=== PATIENT | male | born 1960 | race Caucasian/White ===

== ENCOUNTER 2020-12-14 10:25 | Inpatient (IN) | payer OTHER, SELFPAY ==
[2020-12-14 12:52] LABS: Urine Blood Negative (Negative); Urine Glucose Negative (Negative); Urine Protein Negative (Negative); Urine pH 5.5 (5.0-7.0)
[2020-12-14 14:48] LABS: Protime INR 0.99
[2020-12-14 14:49] LABS: Absolute Lymphocytes (CBC) 1.8 K/uL (0.7-4.9); Basophils % 0.9 % (0-1.3); Lymphocytes % 36.1 % (15.3-44.8); MPV 8.5 fL (7.6-11.3); RBC Red Blood Cell Count 4.86 M/uL (4.33-5.43)
[2020-12-14 14:55] LABS: ALT/SGPT 48 U/L (12-78); AST/SGOT 26 U/L (15-37); Albumin 4.1 g/dL (3.4-5.0); Alkaline Phosphatase 68 U/L (45-117); BUN Blood Urea Nitrogen 12 mg/dL (7-18); Bicarbonate 30 mmol/L (21-32); Bilirubin Direct 0.2 mg/dL (0-0.2); Bilirubin Total 0.8 mg/dL (0.2-1.0); Glucose Level 91 mg/dL (74-106); NT PRO-BNP 22 pg/mL (<125); Potassium 3.9 mmol/L (3.5-5.1); Protein, Total 7.6 g/dL (6.4-8.2); Sodium Level 142 mmol/L (136-145); Troponin (Emerg Dept Use Only) 0.02 ng/mL (0.0-0.045)
--- NOTE | 2020-12-14 15:20 | RAD REPORT ---
EXAM DESCRIPTION: RAD - Chest Single View - 12/14/2020 1:58 pm CLINICAL HISTORY: CHEST PAIN Chest pain. COMPARISON: No comparisons FINDINGS: Portable technique limits examination quality. The lungs are grossly clear. The heart is normal in size. No displaced fractures. IMPRESSION: No acute intrathoracic process suspected.
--- NOTE | 2020-12-14 16:19 | EDPHYS ---
Physician Documentation [facility] Name: Vargas Oquendo Age: 60 yrs Sex: Male : 1960 Arrival Date: 12/14/2020 Time: 10:29 Bed 17 Private MD: ED Physician Franky Jensen HPI: 12/14 13:28 This 60 yrs old Male presents to ER via Ambulatory with complaints of Chest jmm Pain. 13:28 The patient or guardian reports chest pain that is located primarily in the substernal m area. Onset: gradually, at an unknown time. The pain does not radiate. The chest pain is described as a pressure. Duration: The patient or guardian reports multiple episodes, that wax and wane. The patient has experienced similar episodes in the past. Patient states he has been dealing with a similar pain for the past few months. Patient has had outpatient evaluation by Dr. Perera with normal stress tests. . 13:31 Patient states symptoms intensified this morning around 9 am after exercising. Pain has jmm currently resolved. . Historical: - Allergies: 10:51 No Known Allergies; aa5 - Home Meds: 10:51 levothyroxine 75 mcg tab [Active]; lisinopril 10 mg Oral tab 1 tab once daily [Active]; aa5 verapamil 180 mg Oral C24P 1 cap once daily [Active]; glipizide 10 mg Oral tab 1 tab once daily [Active]; atorvastatin 40 mg oral tab 1 tab once daily [Active]; - PMHx: 10:51 Diabetes - NIDDM; Hypertension; Hypothyroidism; High Cholesterol; aa5 - Immunization history:: Adult Immunizations not up to date. - Social history:: Smoking status: Patient denies any tobacco usage or history of. ROS: 13:28 Constitutional: Negative for fever, chills, and weight loss. jmm 13:28 Respiratory: Negative for shortness of breath, cough, wheezing, and pleuritic chest pain. 13:28 Cardiovascular: Positive for chest pain. 13:28 All other systems are negative. Exam: 13:28 Constitutional: This is a well developed, well nourished patient who is awake, alert, jmm and in no acute distress. Head/Face: atraumatic. Eyes: EOMI, no conjunctival erythema appreciated ENT: Moist Mucus Membranes Neck: Trachea midline, Supple Chest/axilla: Normal chest wall appearance and motion. Cardiovascular: Regular rate and rhythm. No edema appreciated Respiratory: Normal respirations, no respiratory distress appreciated Abdomen/GI: Non distended, soft Back: Normal ROM Skin: General appearance color normal 13:28 Musculoskeletal/extremity: ROM: intact in all extremities. 13:28 Skin: Appearance: Color: normal in color. 13:28 Neuro: Orientation: is normal, Mentation: is normal, Memory: is normal. 13:28 Psych: Behavior/mood is pleasant, cooperative. Vital Signs: 10:44 BP 165 / 95; Pulse 82; Resp 17 S; Temp 97.2(O); Pulse Ox 99% on R/A; Weight 98.43 kg aa5 (R); Height 6 ft. 1 in. (185.42 cm); Pain 0/10; 13:10 BP 102 / 70; Pulse 69; Resp 20; Pulse Ox 98% on R/A; ca1 14:05 BP 105 / 69; Pulse 69; Resp 17 S; Pulse Ox 99% on R/A; ca1 15:13 BP 113 / 76; Pulse 63; Resp 17 S; Pulse Ox 97% on R/A; ca1 16:11 BP 107 / 69; Pulse 64; Resp 16 S; Pulse Ox 100% on R/A; ca1 17:11 BP 153 / 85; Pulse 68; Resp 16 S; Pulse Ox 100% on R/A; ca1 18:00 BP 140 / 94; Pulse 67; Resp 16 S; Pulse Ox 99% on R/A; ca1 18:55 BP 125 / 86; Pulse 70; Resp 16 S; Pulse Ox 99% on R/A; ca1 19:55 BP 114 / 63; Pulse 73; Resp 16 S; Pulse Ox 97% on R/A; ca1 20:42 BP 121 / 71; Pulse 72; Resp 16 S; Pulse Ox 99% on R/A; ca1 10:44 Body Mass Index 28.63 (98.43 kg, 185.42 cm) aa5 MDM: 13:27 Patient medically screened. jmm 16:17 The patient was not given aspirin in the Emergency Department. Patient reports taking [facility] aspirin within the past 24 hours. Data reviewed: vital signs, nurses notes, lab test result(s), EKG, radiologic studies, plain films. Counseling: I had a detailed discussion with the patient and/or guardian regarding: the historical points, exam findings, and any diagnostic results supporting the discharge/admit diagnosis, lab results, radiology results, the need for outpatient follow up, the need for further work-up and treatment in the hospital. Refusal of service: The patient/guardian displays adequate decision making capability and despite a detailed discussion of alternatives, benefits, risks, and consequences refuses: Admission to the hospital for further work-up and treatment. 17:08 ED course: I discussed the patient with Dr. Martinez whom accepted the patient for [facility] admission. . 12/14 12:52 Order name: Urine Dipstick-Ancillary; Complete Time: 13:49 [facility] 12/14 13:27 Order name: Basic Metabolic Panel; Complete Time: 14:56 [facility] 12/14 13:27 Order name: CBC with Diff; Complete Time: 15:10 [facility] 12/14 13:27 Order name: LFT's; Complete Time: 14:56 [facility] 12/14 13:27 Order name: Magnesium; Complete Time: 14:56 [facility] 12/14 13:27 Order name: NT PRO-BNP; Complete Time: 14:56 [facility] 12/14 12:46 Order name: CXR XRAY; Complete Time: 15:33 12/14 13:27 Order name: PT-INR; Complete Time: 15:10 [facility] 12/14 13:27 Order name: Troponin (emerg Dept Use Only); Complete Time: 14:56 [facility] 12/14 13:27 Order name: EKG; Complete Time: 13:28 [facility] 12/14 13:27 Order name: Cardiac monitoring; Complete Time: 13:59 [facility] 12/14 18:45 Order name: COVID-19 : Document "Date of Symptom Onset" if Symptomatic. [facility] 12/14 19:25 Order name: CORONAVIRUS [facility] 12/14 20:36 Order name: SARS-COV-2 RT PCR; Complete Time: 20:59 [facility] 12/14 13:27 Order name: EKG - Nurse/Tech; Complete Time: 13:59 [facility] 12/14 13:27 Order name: IV Saline Lock; Complete Time: 13:59 [facility] 12/14 13:27 Order name: Labs collected and sent; Complete Time: 13:59 [facility] 12/14 13:27 Order name: O2 Per Protocol; Complete Time: 13:59 [facility] 12/14 13:27 Order name: O2 Sat Monitoring; Complete Time: 13:59 [facility] Administered Medications: No medications were administered Disposition: 12/14/20 17:09 Hospitalization ordered by Loree Martinez for Observation. Preliminary diagnosis is Chest pain, unspecified. - Bed requested for Telemetry/MedSurg (observation). - Status is Observation. ca1 - Condition is Stable. - Problem is an acute exacerbation. - Symptoms are unchanged. Addendum: 12/16/2020 07:18 Co-signature as Attending Physician, Franky Jensen MD I agree with the assessment and k dr plan of care. Signatures: Dispatcher [employer] EDMS Franky Jensen MD MD kdr Mickail, Joel, PA PA [facility] Na Joshua, RN RN aa5 Mame Holden RN RN tl1 Marian Oconnell RN RN ca1 Corrections: (The following items were deleted from the chart) 12/14 17:06 16:18 12/14/2020 16:18 Discharged to Home. Impression: Chest pain, unspecified. [facility] Condition is Stable. Forms are Medication Reconciliation Form, Thank You Letter, Antibiotic Education, Prescription Opioid Use. Follow up: Private Physician; When: 2 - 3 days; Reason: Recheck today's complaints, Continuance of care, Re-evaluation by your physician. [facility] 20:39 17:09 Hospitalization Ordered by Loree Martinez MD for Observation. Preliminary tl1 diagnosis is Chest pain, unspecified. Bed requested for Telemetry/MedSurg (observation). Status is Observation. Condition is Stable. Problem is an acute exacerbation. Symptoms are unchanged. [facility] 21:33 20:39 12/14/2020 17:09 Hospitalization Ordered by Loree Martinez MD for Observation. ca1 Preliminary diagnosis is Chest pain, unspecified. Bed requested for Telemetry/MedSurg (observation). Status is Observation. Condition is Stable. Problem is an acute exacerbation. Symptoms are unchanged. tl1
--- NOTE | 2020-12-14 16:19 | ER ---
Nurse's Notes [facility] Name: Vargas Oquendo Age: 60 yrs Sex: Male : 1960 Arrival Date: 12/14/2020 Time: 10:29 Bed 17 Private MD: Diagnosis: Chest pain, unspecified Presentation: 12/14 10:44 Chief complaint: Patient states: Chest pressure and shortness of breath with exertion x aa5 a couple months and happened this morning while walking an hour ago, denies discomfort right now. Coronavirus screen: Client denies travel out of the [place] in the last 14 days. At this time, the client does not indicate any symptoms associated with coronavirus-19. Ebola Screen: No symptoms or risks identified at this time. Initial Sepsis Screen: Does the patient meet any 2 criteria? No. Patient's initial sepsis screen is negative. Does the patient have a suspected source of infection? No. Patient's initial sepsis screen is negative. Risk Assessment: Do you want to hurt yourself or someone else? Patient reports no desire to harm self or others. Onset of symptoms was October 09, 2020. Care prior to arrival: None. 10:44 Method Of Arrival: Ambulatory aa5 10:44 Acuity: FESTUS 2 aa5 Triage Assessment: 10:51 General: Appears in no apparent distress. uncomfortable, Behavior is calm, cooperative, aa5 appropriate for age. Pain: Denies pain. Neuro: Level of Consciousness is awake, alert, obeys commands, Oriented to person, place, time, situation. Cardiovascular: Denies chest pain, Patient's skin is warm and dry. Respiratory: Airway is patent Respiratory effort is even, unlabored, Respiratory pattern is regular, symmetrical. Derm: Skin is pink, warm \\T\\ dry. Historical: - Allergies: 10:51 No Known Allergies; aa5 - Home Meds: 10:51 levothyroxine 75 mcg tab [Active]; lisinopril 10 mg Oral tab 1 tab once daily [Active]; aa5 verapamil 180 mg Oral C24P 1 cap once daily [Active]; glipizide 10 mg Oral tab 1 tab once daily [Active]; atorvastatin 40 mg oral tab 1 tab once daily [Active]; - PMHx: 10:51 Diabetes - NIDDM; Hypertension; Hypothyroidism; High Cholesterol; aa5 - Immunization history:: Adult Immunizations not up to date. - Social history:: Smoking status: Patient denies any tobacco usage or history of. Screenin:10 Abuse screen: Denies threats or abuse. Denies injuries from another. Nutritional ca1 screening: No deficits noted. Tuberculosis screening: No symptoms or risk factors identified. Fall Risk IV access (20 points). Total [facility] Fall Scale indicates No Risk (0-24 pts). Assessment: 13:10 General: Appears in no apparent distress. comfortable, Behavior is calm, cooperative, ca1 appropriate for age. Pain: Complains of pain in anterior aspect of left upper chest and left breast Pain does not radiate. Pain currently is 0 out of 10 on a pain scale. at worst was 5 out of 10 on a pain scale. Quality of pain is described as pressure, Pain began at 0800 today Is intermittent. Pain: Also complains of shortness of breath. Neuro: Level of Consciousness is awake, alert, obeys commands, Oriented to person, place, time, situation. Cardiovascular: Heart tones S1 S2 absent Capillary refill < 3 seconds Patient's skin is warm and dry. Rhythm is sinus rhythm. Respiratory: Airway is patent Respiratory effort is even, unlabored, Respiratory pattern is regular, symmetrical, Breath sounds are clear bilaterally. GI: Abdomen is flat, non-distended, Bowel sounds present X 4 quads. Abd is soft and non tender X 4 quads. : No signs and/or symptoms were reported regarding the genitourinary system. EENT: No signs and/or symptoms were reported regarding the EENT system. Derm: Skin is intact, is healthy with good turgor, Skin is pink, warm \\T\\ dry. Musculoskeletal: Circulation, motion, and sensation intact. Capillary refill < 3 seconds. 14:05 Reassessment: Patient appears in no apparent distress at this time. Patient and/or ca1 family updated on plan of care and expected duration. Pain level reassessed. Patient is alert, oriented x 3, equal unlabored respirations, skin warm/dry/pink. 15:11 Reassessment: Patient appears in no apparent distress at this time. Patient and/or ca1 family updated on plan of care and expected duration. Pain level reassessed. Patient is alert, oriented x 3, equal unlabored respirations, skin warm/dry/pink. 16:11 Reassessment: Patient appears in no apparent distress at this time. Patient and/or ca1 family updated on plan of care and expected duration. Pain level reassessed. Patient is alert, oriented x 3, equal unlabored respirations, skin warm/dry/pink. 16:55 Reassessment: Pt wants to talk to provider again. Pending discharge. ca1 17:56 Reassessment: Patient appears in no apparent distress at this time. Patient and/or ca1 family updated on plan of care and expected duration. Pain level reassessed. Patient is alert, oriented x 3, equal unlabored respirations, skin warm/dry/pink. Pending room assignment. 18:55 Reassessment: Patient appears in no apparent distress at this time. Patient and/or ca1 family updated on plan of care and expected duration. Pain level reassessed. Patient is alert, oriented x 3, equal unlabored respirations, skin warm/dry/pink. 19:55 Reassessment: Patient appears in no apparent distress at this time. Patient and/or ca1 family updated on plan of care and expected duration. Pain level reassessed. Patient is alert, oriented x 3, equal unlabored respirations, skin warm/dry/pink. 20:40 Reassessment: called for report, nurse will call back. ca1 20:42 Reassessment: Patient appears in no apparent distress at this time. Patient and/or ca1 family updated on plan of care and expected duration. Pain level reassessed. Patient is alert, oriented x 3, equal unlabored respirations, skin warm/dry/pink. Vital Signs: 10:44 BP 165 / 95; Pulse 82; Resp 17 S; Temp 97.2(O); Pulse Ox 99% on R/A; Weight 98.43 kg aa5 (R); Height 6 ft. 1 in. (185.42 cm); Pain 0/10; 13:10 BP 102 / 70; Pulse 69; Resp 20; Pulse Ox 98% on R/A; ca1 14:05 BP 105 / 69; Pulse 69; Resp 17 S; Pulse Ox 99% on R/A; ca1 15:13 BP 113 / 76; Pulse 63; Resp 17 S; Pulse Ox 97% on R/A; ca1 16:11 BP 107 / 69; Pulse 64; Resp 16 S; Pulse Ox 100% on R/A; ca1 17:11 BP 153 / 85; Pulse 68; Resp 16 S; Pulse Ox 100% on R/A; ca1 18:00 BP 140 / 94; Pulse 67; Resp 16 S; Pulse Ox 99% on R/A; ca1 18:55 BP 125 / 86; Pulse 70; Resp 16 S; Pulse Ox 99% on R/A; ca1 19:55 BP 114 / 63; Pulse 73; Resp 16 S; Pulse Ox 97% on R/A; ca1 20:42 BP 121 / 71; Pulse 72; Resp 16 S; Pulse Ox 99% on R/A; ca1 10:44 Body Mass Index 28.63 (98.43 kg, 185.42 cm) aa5 ED Course: 10:29 Patient arrived in ED. am2 10:47 Triage completed. aa5 10:50 EKG completed in triage. Results shown to MD. jl7 10:51 Arm band placed on right wrist. aa5 13:09 Abdias Smith PA is PHCP. [facility] 13:09 Franky Jensen MD is Attending Physician. [facility] 13:10 Patient has correct armband on for positive identification. Placed in gown. Bed in low ca1 position. Call light in reach. Side rails up X2. lunchroom monitor on. Pulse ox on. NIBP on. Warm blanket given. 13:15 Marian Oconnell, EDUARDO is Primary Nurse. ca1 13:58 CXR XRAY In Process Unspecified. EDMS 13:58 No provider procedures requiring assistance completed. Initial lab(s) drawn, by co, ca1 sent to lab. Inserted saline lock: 20 gauge in right antecubital area, using aseptic technique. Blood collected. Patient maintains SpO2 saturation greater than 95% on room air. 17:09 Loree Martinez MD is Hospitalizing Provider. [facility] 19:23 COVID-19 : Document "Date of Symptom Onset" if Symptomatic. Sent. ca1 20:42 Patient admitted, IV remains in place. ca1 Administered Medications: No medications were administered Outcome: 16:18 Discharge ordered by . [facility] 17:09 Decision to Hospitalize by Provider. [facility] 20:42 Condition: stable ca1 20:42 Instructed on the need for admit. 21:07 Admitted to Med/surg accompanied by tech, via wheelchair, room 214, with chart, Report ca1 called to EDUARDO Epstein 21:33 Patient left the ED. ca1 Signatures: Dispatcher [employer] EDMS Abdias Smith PA PA jmm Calderon, Audri, RN RN aa5 John Ramirez RN RN jl7 Lissette Gandhi am2 Marian Oconnell RN RN ca1 Corrections: (The following items were deleted from the chart) 15:13 14:05 BP 113 / 76; Pulse 63bpm; Resp 17bpm; Spontaneous; Pulse Ox 97% RA; ca1 ca1 17:57 17:56 BP 153 / 85; Pulse 68bpm; Resp 16bpm; Spontaneous; Pulse Ox 100% RA; ca1 ca1
[2020-12-14] MEDS ORDERED: ACETAMINOPHEN 500 MG TAB PO PRN (21:27)
[2020-12-14] MEDS ORDERED: NITROGLYCERIN 0.4 MG/TAB SL PRN (21:27)
[2020-12-14] MEDS ORDERED: ONDANSETRON 4 MG/2 ML VIAL IV PRN (21:27)
[2020-12-14] MEDS: ATORVASTATIN 40 MG TAB PO SCH (21:27)
[2020-12-14] MEDS: INSULIN -REGULAR HUMAN 50 UNIT/0.5 ML ML SQ SCH (21:27)
[2020-12-14] MEDS ORDERED: MORPHINE 2 MG/ML SYR IV PRN (21:27)
[2020-12-14 23:21] VITALS: BMI 29.5
--- NOTE | 2020-12-15 00:28 | P.HP ---
Certification for Inpatient Patient admitted to: Observation With expected LOS: <2 Midnights Patient will require the following post-hospital care: None Practitioner: I am a practitioner with admitting privileges, knowledge of patient current condition, hospital course, and medical plan of care. Services: Services provided to patient in accordance with Admission requirements found in Title 42 Section 412.3 of the Code of Federal Regulations <Arik Jose - Last Filed: 12/15/20 00:23> Patient History Date of Service: 12/14/20 Primary Care Provider: Dr Alas Reason for admission: chest pain History of Present Illness: Mr. Oquendo is a 60 yo male with T2DM, HTN, HLD, and hypothyroidism here today for chest pain. For the past few months he has had chest pain while exercising. Today, after running a mile, he reports 6/10 sternal chest pressure so bad he had to call his neighbor for help. He says the chest pressure will also wake him up at night. He also reports SOB, diaphoresis, an 'icy burn' feeling, and difficulty balancing. Denies nausea, vomiting, vision changes. He dips snuff. He says 2 months ago he had an abnormal pharmacological stress test but had no followup after that. Initial trops negative. - Past Medical/Surgical History Has patient received pneumonia vaccine in the past: No Diabetic: Yes -: diabetes- NIDDM -: HTN -: high cholesterol -: hypothyroidism -: eye surgery - Social History Smoking Status: Never smoker (dips snuff) Alcohol use: No CD- Drugs: No Caffeine use: Yes Place of Residence: Home <Arik Jose - Last Filed: 12/15/20 00:23> Date of Service: 12/16/20 <tha vital - Last Filed: 12/16/20 18:34> Allergies No Known Allergies Allergy (Verified 12/14/20 23:22) Home Medications: Atorvastatin Calcium 40 mg PO DAILY 12/14/20 Glipizide [Glipizide ER] 10 mg PO DAILY 12/14/20 Levothyroxine [Synthroid] 75 mcg PO [id number] 12/14/20 Lisinopril [Zestril] 10 mg PO DAILY 12/14/20 Verapamil HCl [Verapamil Sr] 180 mg PO DAILY 12/14/20 Review of Systems General: Sweats, As per HPI Eyes: Unremarkable ENT: Unremarkable Respiratory: Shortness of Breath, As per HPI Cardiovascular: Chest Pain, As per HPI Gastrointestinal: Unremarkable Genitourinary: Unremarkable Musculoskeletal: Unremarkable Integumentary: Unremarkable Neurological: Unremarkable Lymphatics: Unremarkable <Arik Jose - Last Filed: 12/15/20 00:23> Physical Examination - Vital Signs Temperature: 97.0 F Blood Pressure: 131/72 Pulse: 68 Respirations: 18 Pulse Ox (%): 97 - Physical Exam General: Alert, In no apparent distress, Oriented x3, Cooperative HEENT: Atraumatic, Normocephalic, PERRLA, Mucous membr. moist/pink, EOMI, Sclerae nonicteric Neck: Supple, 2+ carotid pulse no bruit, JVD not distended, No Thyromegaly, No LAD Respiratory: Clear to auscultation bilaterally, Normal air movement Cardiovascular: No edema, Normal pulses, Regular rate/rhythm, Normal S1 S2, No gallops, No rubs, No murmurs Capillary refill: <2 Seconds Gastrointestinal: Normal bowel sounds, Soft and benign, Non-distended, No ascites, No tenderness, No masses, No rebound, No guarding Musculoskeletal: No clubbing, No swelling, No contractures, No erythema, No tenderness, No warmth Integumentary: No rashes, No breakdown, No significant lesion, No tenderness/swelling, No erythema, No warmth, No cyanosis Neurological: Normal gait, Normal speech, Normal strength at 5/5 x4 extr, Normal tone, Sensation intact, Cranial nerves 3-12 intact, Normal affect Lymphatics: No axilla or inguinal lymphadenopathy - Studies Laboratory Data (last 24 hrs) 12/14/20 13:57: PT 11.4, INR 0.99 12/14/20 13:57: WBC 4.80, Hgb 14.7, Hct 45.0, Plt Count 249 12/14/20 13:57: Sodium 142, Potassium 3.9, BUN 12, Creatinine 0.70, Glucose 91, Magnesium 2.0, Total Bilirubin 0.8, AST 26, ALT 48, Alkaline Phosphatase 68 <Arik Jose - Last Filed: 12/15/20 00:23> - Studies Laboratory Data (last 24 hrs) 12/16/20 06:39: APTT 54.9 H 12/16/20 06:39: Sodium 138, Potassium 4.3, BUN 11, Creatinine 0.79, Glucose 207 H 12/16/20 06:39: WBC 7.00 D, Hgb 13.9, Hct 42.0, Plt Count 238 <tha vital - Last Filed: 12/16/20 18:34> Assessment and Plan - Problems (Diagnosis) (1) Type 2 diabetes mellitus Current Visit: Yes Status: Chronic Qualifiers: Diabetes mellitus parts counterman insulin use: without parts counterman use Diabetes mellitus complication status: without complication Qualified Code(s): E11.9 - Type 2 diabetes mellitus without complications (2) Hypertension Current Visit: Yes Status: Chronic Qualifiers: Hypertension type: essential hypertension Qualified Code(s): I10 - Es sential (primary) hypertension (3) Hyperlipidemia Current Visit: Yes Status: Chronic Qualifiers: Hyperlipidemia type: unspecified Qualified Code(s): E78.5 - Hyperlipidemia, unspecified (4) Hypothyroidism Current Visit: Yes Status: Chronic Qualifiers: Hypothyroidism type: unspecified Qualified Code(s): E03.9 - Hypothyroidism, unspecified (5) Chest pain Current Visit: Yes Status: Acute Qualifiers: Chest pain type: unspecified Qualified Code(s): R07.9 - Chest pain, unspecified - Plan cardiology consulted trending troponins and EKG morphine and nitro PRN, daily aspirin and statin BP currently stable, will reconcile home BP medications TSH/T4, lipid panel, A1c pending sliding scale insulin and Accuchecks Discharge Plan: Home Plan to discharge in: 24 Hours - Advance Directives Does patient have a Living Will: No Does patient have a Durable POA for Healthcare: Yes - Code Status/Comfort Care Code Status Assessed: Yes (full code) Critical Care: No Time Spent Managing Pts Care (In Minutes): 70 <Arik Jose - Last Filed: 12/15/20 00:23> - Problems (Diagnosis) (1) Coronary artery disease Current Visit: Yes Status: Acute (2) Chest pain Current Visit: Yes Status: Acute Qualifiers: Chest pain type: unspecified Qualified Code(s): R07.9 - Chest pain, unspecified (3) Hyperlipidemia Current Visit: Yes Status: Chronic Qualifiers: Hyperlipidemia type: unspecified Qualified Code(s): E78.5 - Hyperlipidemia, unspecified (4) Hypertension Current Visit: Yes Status: Chronic Qualifiers: Hypertension type: essential hypertension Qualified Code(s): I10 - Essential (primary) hypertension (5) Type 2 diabetes mellitus Current Visit: Yes Status: Chronic Qualifiers: Diabetes mellitus [facility] insulin use: without parts counterman use Diabetes mellitus complication status: without complication Qualified Code(s): E11.9 - Type 2 diabetes mellitus without complications Physician Review: Patient Assessed, Agree with Above Assessment and Plan Physician Review Additional Text: Chest pain Abnormal stress test Plan: trend troponin. Cardiology consult ASA. <tha vital - Last Filed: 12/16/20 18:34>
[2020-12-15 05:39] LABS: Absolute Lymphocytes (CBC) 1.8 K/uL (0.7-4.9); Basophils % 0.9 % (0-1.3); Hematocrit 42.4 % (39.6-49.0); Lymphocytes % 31.6 % (15.3-44.8); MPV 8.2 fL (7.6-11.3); RBC Red Blood Cell Count 4.61 M/uL (4.33-5.43)
[2020-12-15 06:10] LABS: ALT/SGPT 41 U/L (12-78); AST/SGOT 21 U/L (15-37); Albumin 3.6 g/dL (3.4-5.0); Alkaline Phosphatase 58 U/L (45-117); BUN Blood Urea Nitrogen 12 mg/dL (7-18); Bicarbonate 30 mmol/L (21-32); Bilirubin Total 0.7 mg/dL (0.2-1.0); Glucose Level 136 mg/dL (74-106); HDL Cholesterol 49 mg/dL (40-60); LDL Cholesterol, Calculated 86 (<130); Magnesium 1.9 mg/dL (1.8-2.4); Phosphorus 4.1 mg/dL (2.5-4.9); Potassium 4.2 mmol/L (3.5-5.1); Protein, Total 6.8 g/dL (6.4-8.2); Sodium Level 141 mmol/L (136-145); Troponin I < 0.02 ng/mL (0.0-0.045)
[2020-12-15] MEDS: INSULIN -REGULAR HUMAN 50 UNIT/0.5 ML ML SQ SCH ×4 (07:30→21:00)
[2020-12-15] MEDS: ASPIRIN EC 81 MG TAB PO SCH (08:11)
[2020-12-15] MEDS ORDERED: ENOXAPARIN 40 MG/0.4 ML SQ SCH (09:00)
[2020-12-15] MEDS ORDERED: lisinopriL 10 MG TAB PO SCH (09:00)
[2020-12-15] MEDS ORDERED: LIDOCAINE 1% 20 ML MDV ONE (10:11)
[2020-12-15] MEDS ORDERED: HEPA 1000U/500MLS 1,000 UNIT/500 ML BAG IV ONE (10:12)
[2020-12-15] MEDS ORDERED: ATROPINE SULF 1 MG/10 ML SYR IV ONE (10:12)
[2020-12-15] MEDS ORDERED: NA CHLORIDE 0.9% 0 ML ONE (10:12)
[2020-12-15] MEDS ORDERED: NA CHLORIDE 0.9% 500 ML ONE (10:34)
[2020-12-15] MEDS ORDERED: MIDAZOLAM HCL 2 MG/2 ML INJ ONE (10:48)
[2020-12-15] MEDS ORDERED: FENTANYL CITR 100 MCG/2 ML ONE (10:48)
--- NOTE | 2020-12-15 12:45 | EKG ---
Test Date: 2020-12-15 Test Time: 09:43:11 Assistant Football Coach: KAMINI MEASUREMENT RESULTS: Intervals: Rate: 67 DC: 156 QRSD: 94 QT: 398 QTc: 420 Norton: P: 54 DC: 156 QRS: 46 T: 55 INTERPRETIVE STATEMENTS: Normal sinus rhythm Normal ECG Compared to ECG 12/14/2020 10:45:56 No significant changes Electronically Signed On 12-15-20 12:45:02 CDT by Benigno Perera
--- NOTE | 2020-12-15 12:49 | EKG ---
Test Date: 2020-12-14 Test Time: 10:45:56 Harness And Bag Inspector: FILIPPO MEASUREMENT RESULTS: Intervals: Rate: 68 IN: 152 QRSD: 88 QT: 384 QTc: 408 [place]: P: 45 IN: 152 QRS: 31 T: 56 INTERPRETIVE STATEMENTS: Normal sinus rhythm Normal ECG No previous ECG available for comparison Electronically Signed On 12-15-20 12:45:49 CDT by Benigno Perera
[2020-12-15] MEDS ORDERED: LORAZEPAM 1 MG TABLET PO ONE (13:07)
--- NOTE | 2020-12-15 15:55 | P.PN ---
Subjective Date of Service: 12/15/20 Primary Care Provider: Dr Alas Chief Complaint: chest pain Patient denies any chest pain. Cardiac catheterization done, patient noted to have significant coronary artery disease needing CABG. Physical Examination - Vital Signs Temperature: 98.6 F Blood Pressure: 105/66 Pulse: 63 Respirations: 15 Pulse Ox (%): 96 - Physical Exam General: Alert, In no apparent distress HEENT: Mucous membr. moist/pink Neck: JVD not distended Respiratory: Clear to auscultation bilaterally, Normal air movement Cardiovascular: No edema, Regular rate/rhythm, Normal S1 S2 Gastrointestinal: Soft and benign, Non-distended, No tenderness Musculoskeletal: No swelling Integumentary: No rashes Neurological: Normal strength at 5/5 x4 extr Assessment And Plan - Current Problems (Diagnosis) (1) Coronary artery disease Current Visit: Yes Status: Acute (2) Chest pain Current Visit: Yes Status: Acute Qualifiers: Chest pain type: unspecified Qualified Code(s): R07.9 - Chest pain, unspecified (3) Hyperlipidemia Current Visit: Yes Status: Chronic Qualifiers: Hyperlipidemia type: unspecified Qualified Code(s): E78.5 - Hyperlipidemia, unspecified (4) Hypertension Current Visit: Yes Status: Chronic Qualifiers: Hypertension type: essential hypertension Qualified Code(s): I10 - Essential (primary) hypertension (5) Type 2 diabetes mellitus Current Visit: Yes Status: Chronic Qualifiers: Diabetes mellitus manager terminal insulin use: without detention use Diabetes mellitus complication status: without complication Qualified Code(s): E11.9 - Type 2 diabetes mellitus without complications - Plan Continue aspirin and Lipitor. Patient is borderline bradycardic. Dr. Perera is making arrangements for transfer to [facility] for CABG. Blood pressure control. Continue home antihypertensives. Insulin sliding scale for glucose management.
[2020-12-15] MEDS ORDERED: HEPARIN 5000 UNIT/ML 1 ML VIAL IV ONE (18:00)
--- NOTE | 2020-12-15 19:11 | OP ---
Surgeon: Benigno Perera MD State Game Warden: Ariella Jose. Admitted on 12/14/2020 with unstable angina, brought to the dental lab technician today because of unstable angina and recent positive stress test. He was prepped and draped in the routine sterile fashion. Given V ersed and fentanyl for sedation. A 6-Emirati sheath introduced in the right common femoral artery suc cessfully using the Seldinger technique and 10 cc of xylocaine. The Teodoro catheter left and right were used to cannulate the left main and right main respectively. He was found to have severe ferreira ry artery disease in all 3 vessels. He had a 90% ostial circ, 50% ostial left main, 70% distal left main, a 50% to 60% mid LAD right after the first diagonal. There were collaterals from the left syst em to the PDA off the right. It was completely occluded. The RCA had 40% to 50% stenosis approximat ivan with some haziness. There was a 60% mid RCA stenosis, 70% distal RCA. He appeared to be a right dominant. 6-Emirati sheath were used and catheters. Complications: None. Blood Loss: 5 mL. Postoperative Diagnosis: Severe coronary artery disease. Plan: For him to be sent to [place] for open-heart surgery, triple-vessel disease, possible double o r triple bypass. I will make arrangements for the transfer. I will keep the patient here until he g ets transferred. Anesthesia: Total conscious sedation was 45 minutes. MALLIKA/POLI Voice ID: [id number] Report ID: [id number]
--- NOTE | 2020-12-15 21:35 | CON ---
Date of Consultation: 12/15/2020 Reason For Consultation: Unstable angina. History Of Present Illness: Mr. Oquendo is a 60-year-old white male with history of hypertension, dys lipidemia, tobacco use, family history of heart disease. Had a visit in office recently and had an a bnormal stress was supposed to come for a followup, but he developed significant chest pain and he ca me to the emergency room on 12/14/2020 and was admitted. He has ruled out for OR. His EKG was elliott l but his symptoms are very classic for unstable angina and with his positive recent stress test, the plan was to do a heart catheterization on him today. Allergies: NONE. Review of Systems: Negative. Social History: Positive for tobacco. Family History: Positive for heart disease. Medications: At home include glipizide, atorvastatin, levothyroxine, lisinopril and verapamil. Physical Examination: Vital Signs: Stable, afebrile. HEENT: Negative. Neck: Supple with no bruit. Chest: Clear to auscultation and percussion. Cardiac: Exam revealed a regular rhythm and rate. No murmurs, gallops, or rubs. Abdomen: Benign. Extremities: Revealed no clubbing, cyanosis, or edema. Diagnostic Data: All within normal limits except for a glucose of 227. His hemoglobin A1c was 6.8. His creatinine was normal. Troponin was negative. BNP was negative. Impression And Plan: Unstable angina in a patient with multiple cardiac risk factors including hyper tension, dyslipidemia, and diabetes. He also has hypothyroidism, which is stable. He had a positive stress test recently. We will proceed with left heart catheterization today to define his coronary anatomy. The patient understands the risk and the benefits of the procedure and he agrees to proceed . MALLIKA/POLI Voice ID: [id number] Report ID: [id number]
[2020-12-15] MEDS ORDERED: ZOLPIDEM TARTRATE 5 MG TABLET PO ONE (21:45)
[2020-12-15] MEDS: ATORVASTATIN 40 MG TAB PO SCH (21:48)
[2020-12-16] MEDS ORDERED: LORAZEPAM 1 MG TABLET PO ONE ×2 (00:45→21:01)
[2020-12-16] MEDS ORDERED: HYDRALAZINE HCL 20 MG/ML VIAL IV ONE (00:48)
[2020-12-16] MEDS: HEPARIN/D5W 25,000 UNIT/500 ML BAG IV PRN ×2 (02:09→22:21)
[2020-12-16 06:54] LABS: Absolute Lymphocytes (CBC) 2.2 K/uL (0.7-4.9); Basophils % 1.1 % (0-1.3); Lymphocytes % 30.9 % (15.3-44.8); MPV 8.6 fL (7.6-11.3); RBC Red Blood Cell Count 4.53 M/uL (4.33-5.43)
[2020-12-16 07:14] LABS: BUN Blood Urea Nitrogen 11 mg/dL (7-18); Bicarbonate 29 mmol/L (21-32); Glucose Level 207 mg/dL (74-106); Potassium 4.3 mmol/L (3.5-5.1); Sodium Level 138 mmol/L (136-145)
[2020-12-16] MEDS: INSULIN -REGULAR HUMAN 50 UNIT/0.5 ML ML SQ SCH ×4 (08:05→20:53)
[2020-12-16] MEDS: ASPIRIN EC 81 MG TAB PO SCH (08:06)
--- NOTE | 2020-12-16 11:55 | P.PN ---
Subjective Date of Service: 12/16/20 Primary Care Provider: Dr Alas Chief Complaint: chest pain Patient denies any chest pain. He is asymptomatic. Cardiac catheterization done, patient noted to have significant coronary artery disease needing CABG. Awaiting for bed availability for transfer. Physical Examination - Vital Signs Temperature: 98.7 F Blood Pressure: 111/72 Pulse: 60 Respirations: 16 Pulse Ox (%): 96 - Physical Exam General: Alert, In no apparent distress, Oriented x3 Neck: JVD not distended Respiratory: Clear to auscultation bilaterally, Normal air movement Cardiovascular: No edema, Regular rate/rhythm, Normal S1 S2 Gastrointestinal: Soft and benign, Non-distended Musculoskeletal: No swelling Integumentary: No rashes - Studies Laboratory Data (last 24 hrs) 12/16/20 06:39: APTT 54.9 H 12/16/20 06:39: Sodium 138, Potassium 4.3, BUN 11, Creatinine 0.79, Glucose 207 H 12/16/20 06:39: WBC 7.00 D, Hgb 13.9, Hct 42.0, Plt Count 238 12/15/20 16:06: APTT 27.8 Assessment And Plan - Current Problems (Diagnosis) (1) Coronary artery disease Current Visit: Yes Status: Acute (2) Chest pain Current Visit: Yes Status: Acute Qualifiers: Chest pain type: unspecified Qualified Code(s): R07.9 - Chest pain, unspecified (3) Hyperlipidemia Current Visit: Yes Status: Chronic Qualifiers: Hyperlipidemia type: unspecified Qualified Code(s): E78.5 - Hyperlipidemia, unspecified (4) Hypertension Current Visit: Yes Status: Chronic Qualifiers: Hypertension type: essential hypertension Qualified Code(s): I10 - Essential (primary) hypertension (5) Type 2 diabetes mellitus Current Visit: Yes Status: Chronic Qualifiers: Diabetes mellitus nursing home insulin use: without nursing home use Diabetes mellitus complication status: without complication Qualified Code(s): E11.9 - Type 2 diabetes mellitus without complications - Plan Continue aspirin and Lipitor. Patient is borderline bradycardic. Dr. Perera is making arrangements for transfer to [facility] for CABG. I am told [facility] will start bed arrangement tomorrow. Continue home antihypertensives. Insulin sliding scale for glucose management. Ativan p.r.n. for anxiety.
[2020-12-16] MEDS: ATORVASTATIN 40 MG TAB PO SCH (20:52)
[2020-12-16 21:29] VITALS: O2SAT 97
[2020-12-17] MEDS: INSULIN -REGULAR HUMAN 50 UNIT/0.5 ML ML SQ SCH ×2 (07:30→12:15)
[2020-12-17] MEDS: ASPIRIN EC 81 MG TAB PO SCH (09:08)
[2020-12-17 12:28] VITALS: BP 141/83; TEMP 98.3
--- NOTE | 2020-12-17 12:28 | PN ---
Date of Progress Note: 12/16/2020 Mr. Oquendo had come in with chest pain, recent positive stress test. Catheterization showed severe c oronary artery disease. He is awaiting transfer to [facility] for possible bypass surgery. We had placed him on heparin since the catheterization and he has done well and no chest pain. His telemetry is normal rhythm. His examination is within normal limit. He has no rales. No edema. Hi s right groin site is intact. The patient is on aspirin, heparin, statin, beta sandro. We will res ume his present regimen. The plan is to send him to [facility] on 12/17/2020. MALLIKA/POLI Voice ID: [id number] Report ID: [id number]
--- NOTE | 2020-12-17 13:06 | P.DS ---
Admission Date: 12/16/20 Discharge Date: 12/17/20 Primary Care Provider: Dr Alas Disposition: TRANSFER TO [facility] Discharge Condition: FAIR Reason for Admission: chest pain - Problems (1) Coronary artery disease Current Visit: Yes Status: Acute (2) Chest pain Current Visit: Yes Status: Acute Qualifiers: Chest pain type: unspecified Qualified Code(s): R07.9 - Chest pain, unspecified (3) Hyperlipidemia Current Visit: Yes Status: Chronic Qualifiers: Hyperlipidemia type: unspecified Qualified Code(s): E78.5 - Hyperlipidemia, unspecified (4) Hypertension Current Visit: Yes Status: Chronic Qualifiers: Hypertension type: essential hypertension Qualified Code(s): I10 - Essential (primary) hypertension (5) Type 2 diabetes mellitus Current Visit: Yes Status: Chronic Qualifiers: Diabetes mellitus tank terminal gauger insulin use: without tank terminal gauger use Diabetes mellitus complication status: without complication Qualified Code(s): E11.9 - Type 2 diabetes mellitus without complications Brief History of Present Illness: 60 yo male with T2DM, HTN, HLD, and hypothyroidism presents to the emergency department for chest pain. Patient reports intermittent chest pain excision over 2 months. He reported sternal chest pressure so bad he had to call his neighbor for help. He also reported SOB, diaphoresis, an 'icy burn' feeling, and difficulty balancing. He stated he had an abnormal stress test about 2 months ago but had no followup after that. Initial trops negative in the ED was negative. Chest x-ray unremarkable. Patient admitted for further management. Hospital Course: Patient admitted to the medical floor. His troponin trended negative. Patient was seen by cardiology-Dr. Perera will performed cardiac catheterization on 12/15. High patient noted to have multivessel disease. Cardiology recommended transfer to [facility] for cardiac catheterization. He was placed on aspirin and heparin drip. Vitals have been stable. Patient accepted for transfer. He is clinically stable for transfer. Vital Signs/Physical Exam: Temp Pulse Resp BP Pulse Ox 98.3 F 72 16 141/83 H 97 12/17/20 12:00 12/17/20 12:00 12/17/20 12:00 12/17/20 12:00 12/17/20 12:00 General: Alert, In no apparent distress, Oriented x3 HEENT: Mucous membr. moist/pink Neck: Supple, JVD not distended Respiratory: Clear to auscultation bilaterally, Normal air movement Cardiovascular: No edema, Regular rate/rhythm, Normal S1 S2 Gastrointestinal: Normal bowel sounds, Non-distended Musculoskeletal: No swelling, No tenderness Integumentary: No rashes Neurological: Normal speech, Normal strength at 5/5 x4 extr Laboratory Data at Discharge: WBC 7.00 K/uL (4.3-10.9) D 12/16/20 06:39 Hgb 13.9 g/dL (13.6-17.9) 12/16/20 06:39 Hct 42.0 % (39.6-49.0) 12/16/20 06:39 Plt Count 238 K/uL (152-406) 12/16/20 06:39 PT 11.4 SECONDS (9.5-12.5) 12/14/20 13:57 INR 0.99 12/14/20 13:57 APTT 97.4 SECONDS (24.3-36.9) H 12/17/20 10:28 Sodium 138 mmol/L (136-145) 12/16/20 06:39 Potassium 4.3 mmol/L (3.5-5.1) 12/16/20 06:39 BUN 11 mg/dL (7-18) 12/16/20 06:39 Creatinine 0.79 mg/dL (0.55-1.3) 12/16/20 06:39 Glucose 207 mg/dL (74-106) H 12/16/20 06:39 Phosphorus 4.1 mg/dL (2.5-4.9) 12/15/20 05:23 Magnesium 1.9 mg/dL (1.8-2.4) 12/15/20 05:23 Total Bilirubin 0.7 mg/dL (0.2-1.0) 12/15/20 05:23 AST 21 U/L (15-37) 12/15/20 05:23 ALT 41 U/L (12-78) 12/15/20 05:23 Alkaline Phosphatase 58 U/L (45-117) 12/15/20 05:23 Troponin I < 0.02 ng/mL (0.0-0.045) 12/15/20 05:23 Triglycerides 149 mg/dL (<150) 12/15/20 05:23 Cholesterol 165 mg/dL (<200) 12/15/20 05:23 HDL Cholesterol 49 mg/dL (40-60) 12/15/20 05:23 Cholesterol/HDL Ratio 3.37 12/15/20 05:23 Home Medications: Atorvastatin Calcium 40 mg PO DAILY 12/14/20 Glipizide [Glipizide ER] 10 mg PO DAILY 12/14/20 Levothyroxine [Synthroid*] 75 mcg PO [id number] 12/14/20 Lisinopril [Zestril] 10 mg PO DAILY 12/14/20 Verapamil HCl [Verapamil Sr] 180 mg PO DAILY 12/14/20 Nitroglycerin [Nitrostat*] 0.4 mg SL UD PRN tab 12/17/20 Followup: LOBITO ROBIN [Primary Care Provider] - Time spent managing pt's care (in minutes): 36
== END 2020-12-17 14:00 | disposition short-term general hospital (02) | DRG 287 ==
LOC: ER 10:25 → ERHOLD 19:02 → 2ND 21:13 → OBSVTOIN 12-16 10:33
PROVIDERS: ADMIT Internal Medicine; ATTEND Internal Medicine
PROC: 4A023N7 Measurement of Cardiac Sampling and Pressure, Left Heart, Percutaneous Approach (ICD-10-PCS; principal; 2020-12-15)
PROC: B2111ZZ Fluoroscopy of Multiple Coronary Arteries using Low Osmolar Contrast (ICD-10-PCS; 2020-12-15)
DX: I25.110 Atherosclerotic heart disease of native coronary artery with unstable angina pectoris (principal); E11.9 Type 2 diabetes mellitus without complications; I10 Essential (primary) hypertension; E03.9 Hypothyroidism, unspecified; E78.5 Hyperlipidemia, unspecified; R94.39 Abnormal result of other cardiovascular function study; Z79.890 Hormone replacement therapy; Z79.84 Long term (current) use of oral hypoglycemic drugs; Z79.899 Other long term (current) drug therapy; Z20.822 Contact with and (suspected) exposure to COVID-19
CPT/HCPCS: 36415; 71045; 80048; 80053; 80061; 80076; 81003; 82947; 83036; 83735; 83880; 84100; 84439; 84443; 84484; 85025; 85610; 85730; 93005; 93454; 94760; 99285; C1760; C1893; G0378; J0583; J1644; J2250; J3010; J7040; U0003

== ENCOUNTER 2021-01-05 23:22 | Observation (INO) | payer OTHER ==
--- OUTSIDE RECORDS SUMMARY | 2021-01-05 23:28 | XMS REPORT | Continuity of Care Document ---
:1960 Author Organization [facility] t Address [address] [place] [address] Care Team Providers Name Role Phone Vitor Maya MD Attending Clinician Jacy CLARK Attending Clinician Britton Broussard MD Attending Clinician Brock Jacome MD Attending Clinician Dragan WRIGHT V. Attending Clinician Gabriele WRIGHT Attending Clinician BRITTON BROUSSARD Attending Clinician Unavailable BRITTON BROUSSARD Admitting Clinician Unavailable Problems Condition Condition Condition Status Onset Resolution Last Treating Co mments Source Name Details Category Date Date Treatment Clinician Date s/p ACB x2 s/p ACB x2 Disease Active C [facility] with with 4-11 Lucy Maya 00:00: Medical 12/18/20 12/18/20 00 Center S/P CABG x S/P CABG x Disease Active C [facility] 2 2 [facility] Acute Acute Disease Active [facility] postoperat postoperat Evette kes - dat pain dat pain Medica l Center Acute Acute Disease Active [facility] respirator respirator Evette kes - y y Medical insufficie insufficie Ce nter ncy, ncy, postoperat postoperat dat dat Postproced Postproced Disease Active C [facility] ural ural kes - hypotensio hypotensio Me dical n n Center Allergies, Adverse Reactions, Alerts Allergy Allergy Status Severity Reaction(s) Onset Inactive Treating Comm ents Source Name Type Date Date Clinician Ibuprofe Propensi Active [facility] to 4-13 [facility] - adverse 00:00: Medical reaction 00 Center s Social History Social Habit Start Date Stop Date Quantity Comments Source History SDOH [facility] - Alcohol Std Drinks Medica [facility] History SDOH [facility] - Alcohol Binge Medical [address] [facility] Sex Assigned At [facility] shana [facility] Exposure to Not sure ANJANA Tiwari - SARS-CoV-2 (event) Medica l [place] Tobacco use and 2021-01-02 2021-01-02 Never used [facility] St Alas kesesar - exposure 00:00:00 00:00:00 Medical Center Alcohol intake 2021-01-02 2021-01-[address] [facility] - 00:00:00 00:00:00 non-drinker Medical Cente r (finding) History SDOH 2021-01-02 2021-01-[address] [facility] - Alcohol Frequency 00:00:00 00:00:00 [facility] Smoking Status Start Date Stop Date Source Never smoker [facility] edical [place] Medications Ordered Filled Start Stop Current Ordering Indication Dosage Frequency Signature Comments Components Source Medication Medication Date Date Medication? Clinician (SIG) Name Name traMADoL Yes 50mg Take [address] (ULTRAM) 50 4-17 tablet (50 Evette kes - mg tablet 00:00: mg total) Med ical 00 by mouth Center every 6 (six) hours as needed. Max Daily Amount: 200 mg gabapentin 2021- Yes 100mg Q.[id number] Take [address] (NEURONTIN) -23 12-17 [id number] capsule [facility] - 100 MG 00:00: 23:59 3D (100 mg Medical capsule 00 :00 total) by Center mouth 3 (three) times daily. metoprolol 2021- Yes 100mg QD Take [address] succinate 4-17 -17 tablet [facility] - (TOPROL-XL) 00:00: 23:59 (100 mg Me dical 100 MG 24 00 :00 total) by Cente r hr tablet mouth daily. furosemide 2021- Yes 20mg QD Take [address] (LASIX) 20 4-17 -17 tablet (20 Evette kes - MG tablet 00:00: 23:59 mg total) Me dical 00 :00 by mouth Center daily. apixaban 2020- Yes 5mg Q.5D Take [address] (ELIQUIS) 5 4-17 05-17 tablet (5 Evette kes - mg Tab 00:00: 23:59 mg total) Medic al tablet 00 :00 by mouth 2 Center (two) times daily for 30 days. aspirin 81 2020- Yes 81mg QD Take [address] MG EC 4-17 05-17 tablet (81 [facility] - tablet 00:00: 23:59 mg total) Medic al 00 :00 by mouth Center daily for 30 days. docusate 2020- No 100mg Take 1 [facility] t sodium -17 -27 capsule [facility] - (COLACE) 00:00: 23:59 (100 mg Medic al 100 MG 00 :00 total) by Center capsule mouth 2 (two) times daily as needed for Constipati on for up to 10 days. polyethylen 2020- No 17g Take [address] e glycol -23 12-20 by mouth 2 Luke s - (GLYCOLAX) 00:00: 23:59 (two) Medic al 17 gram 00 :00 times Center packet daily as needed (constipat ion) for up to 3 days. aspirin 81 2020-2020- No 81mg QD Take [address] MG EC 4-17 -17 tablet (81 [facility] - tablet 00:00: 00:00 mg total) Medic al 00 :00 by mouth Center daily for 30 days. metoprolol 2020-2020- No 100mg QD Take [address] succinate 4-17 -17 tablet [facility] - (TOPROL-XL) 00:00: 00:00 (100 mg Me dical 100 MG 24 00 :00 total) by Cente r hr tablet mouth daily. apixaban 2020- No 5mg Q.5D Take [address] (ELIQUIS) 5 4-17 -17 tablet (5 Evette kes - mg Tab 00:00: 00:00 mg total) Medic al tablet 00 :00 by mouth 2 Center (two) times daily for 30 days. aspirin 81 2020-2020- No 81mg QD Take [address] MG EC 4-17 04-17 tablet (81 [facility] - tablet 00:00: 00:00 mg total) Medic al 00 :00 by mouth Center daily for 30 days. gabapentin 2020-2020- No 100mg Q.[id number] Take [address] (NEURONTIN) 12-23-17 [id number] capsule [facility] - 100 MG 00:00: 00:00 3D (100 mg Medical capsule 00 :00 total) by Center mouth 3 (three) times daily. metoprolol 2020-2020- No 100mg QD Take [address] succinate 12-23- tablet [facility] - (TOPROL-XL) 00:00: 00:00 (100 mg Me dical 100 MG 24 00 :00 total) by Cente r hr tablet mouth daily. furosemide 2020-2020- No 20mg QD Take [address] (LASIX) 20 12-23 tablet (20 Evette kes - MG tablet 00:00: 00:00 mg total) Me dical 00 :00 by mouth Center daily. apixaban 2020- No 5mg Q.5D Take [address] (ELIQUIS) 5 12-22 tablet (5 Evette kes - mg Tab 00:00: 00:00 mg total) Medic al tablet 00 :00 by mouth 2 Center (two) times daily for 30 days. docusate 2020- No 100mg Q.5D Take 1 [facility] t sodium 12-22 capsule [facility] - (COLACE) 00:00: 00:00 (100 mg Medic al 100 MG 00 :00 total) by Center capsule mouth 2 (two) times daily for 10 days. gabapentin 2020- No 100mg Q.[id number] Take [address] (NEURONTIN) 12-22- [id number] capsule [facility] - 100 MG 00:00: 00:00 3D (100 mg Medical capsule 00 :00 total) by Center mouth 3 (three) times daily. polyethylen 2020-2020- No 17g Q.5D Take [address] e glycol 12-2217 by mouth 2 Luke s - (GLYCOLAX) 00:00: 00:00 (two) Medic al 17 gram 00 :00 times Center packet daily for 3 days. traMADoL 2020- No 50mg Take [address] (ULTRAM) 50 16 -17 tablet (50 L ukes - mg tablet 00:00: 00:00 mg total) Me dical 00 :00 by mouth Center every 6 (six) hours as needed for up to 10 days. Max Daily Amount: 200 mg furosemide 2020- No 20mg QD Take [address] (LASIX) 20 -16 -17 tablet (20 Evette kes - MG tablet 00:00: 00:00 mg total) Me dical 00 :00 by mouth Center daily. atorvastati Yes 40mg QD Take [address] n (Lipitor) 4-08 by mouth Luke s - 40 MG 00:00: daily. Medical tablet 00 Center glipiZIDE Yes 10mg QD Take [address] (GLUCOTROL 4-08 by mouth [facility] - XL) 10 MG 00:00: daily. Medica l 24 hr 00 Center tablet levothyroxi Yes 75ug QD Take [address] ne 4-08 mcg by [facility]ukes - (Synthroid) 00:00: mouth Medic al 75 MCG 00 daily. Center tablet lisinopriL No 10mg QD Take [address] (ZestriL) 08 04-16 by mouth [facility] - 10 MG 00:00: 00:00 daily. Medical tablet 00 :00 [place] verapamiL 2020- No 180mg QD Take [address] (VERELAN -08 04-16 mg by [facility] - PM) 180 MG 00:00: 00:00 mouth Medic al 24 hr 00 :00 daily. [place] capsule Vital Signs Vital Name Observation Time Observation Value Comments Source Systolic blood 2021-01-02 09:57:00 131 mm[Hg] [facility] Diastolic blood 2021-01-02 09:57:00 77 mm[Hg] [facility] S t [facility] Heart rate 2021-01-02 09:57:00 76 /min [facility] Body temperature 2021-01-02 09:57:00 36.17 Alicia [facility] Respiratory rate 2021-01-02 09:57:00 18 /min [facility] Body height 2021-01-02 09:57:00 182.9 cm [facility] Body weight 2021-01-02 09:57:00 95.709 kg [facility] BMI 2021-01-02 09:57:00 28.62 kg/m2 [facility] Oxygen saturation in 2021-01-02 09:57:00 98 /min room air [facility] - Arterial blood by Medical Ce nter Pulse oximetry Procedures Procedure Date / Time Performed Performing Clinician [facility] e POCT-GLUCOSE METER 2020-12-23 11:53:00 Vijaya Archibald V. [facility] 2D ECHO W/ DOPPLER 2020-12-23 11:29:20 Liz Gilliland [facility] (CW/PW/COLOR) [facility] APTT 2020-12-23 08:43:[address] [facility] BASIC METABOLIC PANEL 2020-12-23 08:43:[address] [facility] (7) [facility] MAGNESIUM 2020-12-23 08:43:[address] PHOSPHORUS 2020-12-23 08:43:[address] CBC W/PLT COUNT & AUTO 2020-12-23 08:43:00 Nithin [facility] POCT-GLUCOSE METER 2020-12-23 07:20:00 Vijaya Archibald V. [facility] XR CHEST 1 VIEW 2020-12-23 02:43:00 Marco Antonio Weller [facility] PORTABLE/BEDSIDE [facility] POCT-GLUCOSE METER 2020-12-22 21:10:00 Vijaya Archibald V. [facility] POCT-GLUCOSE METER 2020-12-22 17:12:00 Vijaya Archibald V. [facility] POCT-GLUCOSE METER 2020-12-22 12:02:00 Vijaya Archibald V. [facility] POCT-GLUCOSE METER 2020-12-22 07:37:00 Vijaya Archibald V. [facility] XR CHEST 1 VIEW 2020-12-22 05:12:[address] [facility] PORTABLE/BEDSIDE [facility] BASIC METABOLIC PANEL 2020-12-22 01:32:[address] [facility] () [facility] MAGNESIUM 2020-12-22 01:32:[address] PHOSPHORUS 2020-12-22 01:32:[address] [facility] APTT 2020-12-22 01:32:[address] CBC W/PLT COUNT & AUTO 2020-12-22 01:32:00 Nithin [facility] APTT 2020-12-21 23:10:[address] POCT-GLUCOSE METER 2020-12-21 20:17:00 Vijaya Archibald V. [facility] POCT-GLUCOSE METER 2020-12-21 17:08:00 Vijaya Archibald V. [facility] APTT 2020-12-21 16:42:00 Eric Meyers [facility] POCT-GLUCOSE METER 2020-12-21 12:26:00 Vijaya Archibald V. [facility] URINALYSIS W/ REFLEX 2020-12-21 10:07:00 Kendal Sorenson [facility] URINE CULTURE [facility] APTT 2020-12-21 10:04:00 Eric Meyers [facility] POCT-GLUCOSE METER 2020-12-21 07:55:00 Vijaya Archibald V. [facility] XR CHEST 1 VIEW 2020-12-21 04:43:00 Nithin [facility]/BEDSIDE [facility] BASIC METABOLIC PANEL 2020-12-21 01:24:[address] [facility] () [facility] MAGNESIUM 2020-12-21 01:24:[address] PHOSPHORUS 2020-12-21 01:24:[address] CALCIUM, IONIZED 2020-12-21 01:24:00 Nithin [facility] CBC W/PLT COUNT & AUTO 2020-12-21 01:24:00 Nithin [facility] ECG 12-LEAD 2020-12-20 22:23:03 Unknown, Hl7 Doctor [facility] POCT-GLUCOSE METER 2020-12-20 21:36:00 Vijaya Archibald V. [facility] XR ABDOMEN / KUB 1 VIEW 2020-12-20 20:51:00 Bladimir Pierce [facility] POCT-GLUCOSE METER 2020-12-20 17:11:00 Vijaya Archibald V. [facility] POCT-GLUCOSE METER 2020-12-20 12:04:00 Leif Broussard [facility] POCT-GLUCOSE METER 2020-12-20 08:21:00 Leif Broussard [facility] BASIC METABOLIC PANEL 2020-12-20 04:15:[address] [facility] () [facility] MAGNESIUM 2020-12-20 04:15:[address] [facility] PHOSPHORUS 2020-12-20 04:15:[address] [facility] CALCIUM, IONIZED 2020-12-20 04:15:00 Nithin [facility] CBC W/PLT COUNT & AUTO 2020-12-20 04:15:00 Leif Broussard [facility] XR CHEST 1 VIEW 2020-12-20 04:13:[address] [facility] PORTABLE/BEDSIDE [facility] POCT-GLUCOSE METER 2020-12-19 21:46:00 Leif Broussard [facility] POCT-GLUCOSE METER 2020-12-19 15:11:00 Shahnaz Jacome [facility] BASIC METABOLIC PANEL 2020-12-19 04:25:[address] [facility] (7) [facility] MAGNESIUM 2020-12-19 04:25:00 Marco Antonio Weller [facility] PHOSPHORUS 2020-12-19 04:25:00 Marco Antonio Weller [facility] CALCIUM, IONIZED 2020-12-19 04:25:00 Marco Antonio Weller [facility] CBC W/PLT COUNT & AUTO 2020-12-19 04:25:00 Leif Broussard [facility] XR CHEST 1 VIEW 2020-12-19 00:55:00 Nithin Marco Antonio Nomi [facility] PORTABLE/BEDSIDE [facility] POCT-GLUCOSE METER 2020-12-18 22:49:00 Shahnaz Jacome [facility] BLOOD GAS, ARTERIAL 2020-12-18 22:26:00 Zulma [facility] SODIUM NA-STAT LAB 2020-12-18 22:26:00 Zulma [facility] POTASSIUM-STAT LAB 2020-12-18 22:26:00 Zulma [facility] GLUCOSE-STAT LAB 2020-12-18 22:26:00 Jules Maya [facility] HGB/HCT (H&H) - STAT LAB 2020-12-18 22:26:00 Jules Maya [facility] CALCIUM, IONIZED 2020-12-18 22:26:00 Alf Jenkins [facility] BLOOD GAS, ARTERIAL 2020-12-18 20:38:00 Marco Antonio Weller [facility] SODIUM NA-STAT LAB 2020-12-18 20:38:00 Marco Antonio Weller [facility] POTASSIUM-STAT LAB 2020-12-18 20:38:00 Marco Antonio Weller [facility] GLUCOSE-STAT LAB 2020-12-18 20:38:00 Marco Antonio Weller [facility] HGB/HCT (H&H) - STAT LAB 2020-12-18 20:38:00 Marco Antonio Weller Ma [facility] BASIC METABOLIC PANEL 2020-12-18 20:38:00 Alf Jenkins [facility] (7) [facility] MAGNESIUM 2020-12-18 20:38:00 Alf Jenkins [facility] POCT-GLUCOSE METER 2020-12-18 18:11:00 Shahnaz Jacome [facility] LACTIC ACID, ARTERIAL 2020-12-18 18:02:00 Marco Antonio Weller [facility] BLOOD GAS, ARTERIAL 2020-12-18 18:02:00 Marco Antonio Weller [facility] POCT-GLUCOSE METER 2020-12-18 17:06:00 Leif Broussard [facility] POCT-GLUCOSE METER 2020-12-18 16:07:00 Leif Broussard [facility] XR CHEST 1 VIEW 2020-12-18 14:19:00 Kendal Sorenson [facility] - PORTABLE/BEDSIDE [facility] ECG 12-LEAD 2020-12-18 14:11:08 Unknown, Hl7 Doctor [facility] BLOOD GAS, ARTERIAL 2020-12-18 13:59:00 Kendal Sorenson [facility] OXYGEN SATURATION, 2020-12-18 13:59:00 Amy Moreno [facility] BASIC METABOLIC PANEL 2020-12-18 13:57:00 Kendal Sorenson [facility] () [facility] APTT 2020-12-18 13:56:00 Leif Broussard [facility] LACTIC ACID, ARTERIAL 2020-12-18 13:56:00 Amy Moreno [facility] PT/APTT 2020-12-18 13:56:[address] [facility] CBC W/PLT COUNT & AUTO 2020-12-18 13:56:00 Kendal Sorenson [facility] - DIFFERENTIAL [facility] POCT-ACT 2020-12-18 12:59:00 Leif Broussard Santy [facility] BLOOD GAS, ARTERIAL 2020-12-18 12:55[facility]-12[facility]18 12:55[facility] NA-STAT [facility] 2020-12-18 12:55:43 [facility] 2020-12-18 12:55:43 [facility] GLU[facility]SE-[facility] 2020-12-18 12:55:43 [facility] HGB/HCT (H&H) - STAT LAB 2020-12-18 12:55:[facility] 2020-12-18 12:24:00 Leif Broussard [facility] BLOOD GAS, ARTERIAL 2020-12-18 12:21:41 [facility] SODIUM NA-STAT LAB 2020-12-18 12:21:41 [facility] POTASSIUM-STAT LAB 2020-12-18 12:21:41 [facility] GLUCOSE-STAT LAB 2020-12-18 12:21:41 [facility] HGB/HCT (H&H) - STAT LAB 2020-12-18 12:21:41 [facility] POCT-ACT 2020-12-18 11:51:00 Leif Broussard [facility] BLOOD GAS, ARTERIAL 2020-12-18 11:49:14 [facility] SODIUM NA-STAT LAB 2020-12-18 11:49:14 [facility] POTASSIUM-STAT LAB 2020-12-18 11:49:14 Jules Maya [facility] GLUCOSE-STAT LAB 2020-12-18 11:49:14 Jules Maya [facility] HGB/HCT (H&H) - STAT LAB 2020-12-18 11:49:14 ZulmaJules edmonds [facility] POCT-ACT 2020-12-18 11:12:00 Leif Broussard [facility] POCT-ACT 2020-12-18 10:38:00 Leif Broussard [facility] BLOOD GAS, ARTERIAL 2020-12-18 10:35:24 [facility] CALCIUM, IONIZED 2020-12-18 10:35:24 [facility] SODIUM NA-STAT LAB 2020-12-18 10:35:24 [facility] POTASSIUM-STAT LAB 2020-12-18 10:35:24 [facility] GLUCOSE-STAT LAB 2020-12-18 10:35:24 [facility] HGB/HCT (H&H) - STAT LAB 2020-12-18 10:35:24 [facility] BYPASS,AORTO CORONARY 2020-12-18 09:50:[address] [facility] - J CARLOS/SVG [facility] ENDOSCOPIC HARVEST,VEIN 2020-12-18 09:50:00 Zulma Jules [facility] BASIC METABOLIC PANEL 2020-12-18 05:07:00 Marco Antonio Weller [address] HEMOGLOBIN A1C 2020-12-18 05:07:00 Kendal Sorenson [facility] LIPID PANEL 2020-12-18 05:07:00 Kendal Sorenson [facility] HEPATIC FUNCTION PANEL 2020-12-18 05:07:00 Delta Kendal [facility] APTT 2020-12-18 05:07:00 Marco Antonio Weller [facility] MAGNESIUM 2020-12-18 05:07:00 Sorenson Kendal [facility] PHOSPHORUS 2020-12-18 05:07:00 Kendal Sorenson [facility] CBC W/PLT COUNT & AUTO 2020-12-18 05:07:00 Leif Broussard [facility] DIFFERENTIAL [facility] ABORH, MANUAL 2020-12-17 23:37:00 Larissa Ruggiero [facility] APTT 2020-12-17 23:15:00 Marco Antonio Weller [facility] TYPE AND SCREEN, 2020-12-17 23:15:00 Antonette franklyn [facility] AUTOMATED [facility] POCT-GLUCOSE METER 2020-12-17 21:44:00 Leif Broussard Santy [facility] 2D ECHO W/ DOPPLER 2020-12-17 21:44:00 [facility] HC CAROTID DOPPLER ELOINA 2020-12-17 21:27:00 Emigdio Martell [facility] ECG 12-LEAD 2020-12-17 19:15:24 Antonette franlkyn [facility] XR CHEST 1 VIEW 2020-12-17 18:49:00 [facility] - PORTABLE/BEDSIDE Medical Center POCT-GLUCOSE METER 2020-12-17 17:45:00 Leif Broussard Santy [facility] SARS-COV2/RT-PCR ([facility] & 2020-12-17 16:59:00 Marco Antonio Weller [facility] - REF LABS) [facility] BASIC METABOLIC PANEL 2020-12-17 16:57:00 Marco Antonio Weller [facility] (7) [facility] PT/APTT 2020-12-17 16:57:00 Khloe Leif [facility] APTT 2020-12-17 16:57:00 Leif Broussard [facility] CBC W/PLT COUNT & AUTO 2020-12-17 16:57:00 Leif Broussard Britton [facility] Plan of Care Planned Activity Planned Date Details Comments Source Future Scheduled 2023-12-[address] - Test 00:00:00 (procedure) [code = [facility] 80525584] Future Scheduled 2021-05-[address] [facility] - Test 00:00:00 (Season Ended) [code = [facility] INFLUENZA VACCINE (Season Ended)] Future Scheduled 2020-09-[address] [facility] - Test 00:00:00 (12+) [code = [facility] DEPRESSION SCREENING (12+)] Future Scheduled 2008 SHINGLES VACCINES ([address] [facility] - Test 00:00:00 of 2) [code = SHINGLES Medic la Center VACCINES (1 of 2)] Future Scheduled 1977 DTAP/TDAP/TD VACCINES [facility] - Test 00:00:00 (1 - Tdap) [code = Medical C enter DTAP/TDAP/TD VACCINES (1 - Tdap)] Future Scheduled 1976 HEPATITIS C [facility]CRE[facility]ING [facility] - Test 00:00:00 [code = HEPATITIS C Medical Center SCREENING] Future Scheduled [address] [facility] - Test 00:00:00 0-64 YRS (1 of 1 - Medical C enter PPSV23) [code = PNEUMOCOCCAL VACCINE 0-64 YRS (1 of 1 - PPSV23)] Future Scheduled [address] [facility] 00:00[facility]00 [facility] colon (procedure) [code = 844356457] Results Test Description Test Time Test Comments Results Result Sour e Comments 2D Echo 2020-12-[address] [facility] W/Doppler(CW/PW/C 7 ECHO [facility] - [facility]) 17:50:27 [facility] CPACSInterface, External Ris In - 12/23/2020 5:50 PM CDTTransthoracic Echocardiography Report (TTE) Demographics Patient Name MIKE NEGRO Date of Study 12/23/2020 WENDY Gender Male Visit Number [id number] Race Room Number 1154 Number Date of 1960 Referring Darshana NICOLAS Physician Age 60 year(s) Capital Project Engineer Bhavya Hines [facility] [place] Garcia [place] Interpreting [facility] Pre Physician Read Cameron Pinto MD Procedure Type of Study TTE procedure:2DECHO W DOPPLER(CW/PW/COLOR) (Pending Discharge) Indications:Evaluatio n of Ventricular function post ACS.Clinical HistoryCAD, DM, HTN, HLD4/08/28 ACB X2HGB 8.9HCT 27.3 %Contrast Medium: Definity. Amount - 2 mlHeight: 72 inches Weight: 100.24 kg (221 lbs) BSA: 2.22 m^2 BMI: 29.97kg/m^2HR: 68 bpm BP: 108/63 mmHg Summary 1. Normal LV size and function. LVEF is > 60% 2. Diastology: Indeterminate 3. Normal RV size and function 4. The valve appears bicuspid with fusion of the RCC and LCC. Mild aortic stenosis. TANIYA 1.57 cm 2. Pk / Mn: 22 / 10 mm Hg. DI=0.52 5. Unable to estimate PASP 6. Small pericardial effusion Previous Study Compared to the previous study there was no significant change. Signature - - Findings Left Ventricle LV endocardium is adequately visualized with IV ultrasound enhancing agent. Normal left ventricular chamber size. Normal wall thickness. Normal overall left ventricular systolic function. No apparent segmental wall motion abnormalities. Estimated LVEF by qualitative assessment is normal (>60%) . LV diastolic function is indeterminate. Left Atrium LA size is normal . Right Ventricle Normal right ventricle structure and function. Right Atrium Normal right atrium. Aortic Valve Mild AoV cusp thickening. Mild aortic regurgitation. Mild aortic stenosis The valve appears bicuspid with fusion of the LCC and RCC Mitral Valve Mild MV leaflet thickening. Tricuspid Valve A trace of tricuspid regurgitation. Unable to estimate peak systolic PA pressure; inadequate TR velocity signal. Pulmonic Valve Normal PV structure and function by limited views and Doppler. Aorta Aortic root size (SInus of Valsalva diameter) is normal . Pericardium A small posterior pericardial effusion is present . IVC/SVC/PA/PV/Pleural The estimated RA pressure by IVC dynamics 5-10mmHg . Chambers/Structures Left Atrium LA Volume: 65.34 ml LA Area: 22.8 cm^2 LA Vol. Index: 29 ml/m^2 Left Ventricle LVIDd: 5.13 cm LVEDV:125.59 ml LVIDs: 3.62 cm LVESV:47.32 ml LV Septum Diastolic: 0.9 cm LVEF 2D Cube: 65 % LV PW Diastolic: 1.05 cm LV FS: 29.4 % LVOT Diameter: 1.96 cm LVEF: 62.3 % Right Ventricle RVOT VTI: 18.41 cm Aorta Ao Root S of Donna.: 3 cm Ascending Aorta: 2.72 cm Doppler/Quantitative Measurements Mitral Valve MV Peak E-Wave: 0.85 m/s MV Peak A-Wave: 0.71 m/s E/A Ratio: 1.21 Peak Gradient: 2.91 mmHg Deceleration Time: 140.8 msec MV Dhaval. Peak: Aortic Valve Peak Velocity: 2.35 m/s Mean Velocity: 1.45 m/s Peak Gradient: 22.07 mmHg Mean Gradient: 10.35 mmHg AV Area (continuity): 1.57 cm^2 AV VTI: 43.73 cm AV DVI: 0.52 LVOT Peak Velocity: 1.05 m/s Peak Gradient: 4.39 mmHg Mean Velocity: 0.78 m/s Mean Gradient: 2.68 mmHg LVOT Diameter: 1.96 cm LVOT VTI: 22.75 cm LVOT Area: 3.02 cm^2 LVOT SV:68.61 ml LVOT CO: 4.67 l/min LVOT CI: 2.1 l/min/m^2 POC-Glucose meter 2020-12-23 12:05:00 Test Item Value Reference Range Interpretation Comme nts POC-Glucose Meter (test code = 211 mg/dL 70-110 H : TESTED AT [facility] [address] 15[address]) [facility], 770 30: Business Solutions Consultant/Techni anoop ID = [id number] for RADHA DANIEL Lab Interpretation (test code = Abnormal 55554-8) [facility] [id number] 12:05:00 Test Item Value Reference Range Interpretation Comments POC-GLUCOSE METER 211 mg/dL 70-110 H : TESTED A T [facility] [address] (BEAKER) (test code = BERTNE R [facility], 1538) [address]: Business Solutions Consultant/Techni anoop ID = [id number] for RADHA ADAME Basic metabolic [id number] 09:19:00 Test Item Value Reference Range Interpretation Comments Sodium (test code = 136 meq/L 795-682 5763-2) Potassium (test code = 4.3 meq/L 3.5-5.1 2823-3) Chloride (test code = 97 meq/L 98-107 L 2075-0) CO2 (test code = 32 meq/L 22-29 H 2028-9) BUN (test code = 8 mg/dL 7-21 3094-0) Creatinine (test code 0.66 mg/dL 0.57-1.25 = 2160-0) Glucose (test code = 168 mg/dL 70-105 H 2345-7) Calcium (test code = 8.7 mg/dL 8.4-10.2 11108-5) EGFR (test code = 122 mL/min/1.73 [place] [address]-5) NOT ACCURATE CREATININE CLEARANCE IN PREDICTING GLOMERULAR FILTRATION RATE . ESTIMATED GFR I S NOT APPLICABLE FOR DIALYSIS PATIENTS. CITLALY (test code = CITLALY) Business Solutions Consultant ID - EDASI Lab Interpretation Abnormal (test code = 56016-3) [facility] 09[facility]19:00 Test Item Value Reference Range Interpretation Comments Magnesium (test code = 1.7 mg/dL 1.6-2.6 90197-2) CITLALY (test code = CITLALY) Business Solutions Consultant ID - EDASI Lab Interpretation (test Normal code = 53718-9) [facility] 09:19:00 Test Item Value Reference Range Interpretation Comments Phosphorus (test code = 3.9 mg/dL 2.3-4.7 2777-1) CITLALY (test code = CITLALY) Business Solutions Consultant ID - EDASI Lab Interpretation (test Normal code = 73956-3) [facility] [id number] 09:19:00 Test Item Value Reference Range Interpretation Comments SODIUM (BEAKER) 136 meq/L 136-145 (test code = 381) POTASSIUM (BEAKER) 4.3 meq/L 3.5-5.1 (test code = 379) CHLORIDE (BEAKER) 97 meq/L 98-107 L (test code = 382) CO2 (BEAKER) (test 32 meq/L 22-29 H code = 355) BLOOD UREA NITROGEN 8 mg/dL 7-21 (BEAKER) (test code = 354) CREATININE (BEAKER) 0.66 mg/dL 0.57-1.25 (test code = 358) GLUCOSE RANDOM 168 mg/dL 70-105 H (BEAKER) (test code = 652) CALCIUM (BEAKER) 8.7 mg/dL 8.4-10.2 (test code = 697) EGFR (BEAKER) (test 122 mL/min/1.73 ESTIM ATED GFR IS code = 1092) sq m NOT ACCURATE CREATININE CLEARANCE IN PREDICTING GLOMERULAR FILTRATION RATE . ESTIMATED GFR I S NOT APPLICABLE FOR DIALYSIS PATIEN TS. Business Solutions Consultant ID - [id number] 09:19:00 Test Item Value Reference Range Interpretation Comments MAGNESIUM (BEAKER) (test code = 1.7 mg/dL 1.6-2.6 627) Business Solutions Consultant ID - [id number] 09:19:00 Test Item Value Reference Range Interpretation Comments PHOSPHORUS (BEAKER) (test code = 3.9 mg/dL 2.3-4.7 604) Business Solutions Consultant ID - [id number] 09:07:00 Test Item Value Reference Range Interpretation Comments PTT (test code = 91777-1) 33.9 See_Comment [ Automated message] The system [employer] generated this result transmitted ref erence range: 22.5 - 3 6.0 seconds. The re ference range was not u sed to interpret this result as normal/abnor mal. Lab Interpretation (test Normal code = 46848-4) [facility]APTT[facility] 09:07:00 Test Item Value Reference Range Interpretation Comments PARTIAL THROMBOPLASTIN TIME 33.9 seconds 22.5-36.0 (BEAKER) (test code = 760) CBC with platelet count + automated [id number] 09:00:00 Test Item Value Reference Range Interpretation Comments WBC (test code = 6690-2) 6.8 See_Comment [A utomated message] The system [employer] generated this result transmitted ref erence range: 3.5 - 10 .5 K/L. The refe rence range was not u sed to interpret this result as normal/abnor mal. RBC (test code = 789-8) 2.86 See_Comment L [Au tomated message] The system [employer] generated this result transmitted ref erence range: 4.63 - 6 .08 M/L. The refe rence range was not u sed to interpret this result as normal/abnor mal. MCHC (test code = 786-4) 32.6 See_Comment L [A utomated message] The system [employer] generated this result transmitted ref erence range: 32.3 - 3 6.5 GM/DL. The refe rence range was not u sed to interpret this result as normal/abnor mal. Hematocrit (test code = 27.3 % 40.1-51 L 4544-3) MCV (test code = 787-2) 95.5 fL 79-92.2 H MCH (test code = 785-6) 31.1 pg 25.7-32.2 RDW (test code = 788-0) 12.4 % 11.6-14.4 Platelets (test code = 232 See_Comment [Aut omated message] 777-3) The system [employer] generated this result transmitted ref erence range: 150 - 45 0 K/CU MM. The referen ce range was not u sed to interpret this result as normal/abnor mal. MPV (test code = 9.7 fL 9.4-12.4 92342-2) nRBC (test code = 413) 0 See_Comment [Aut omated message] The system [employer] generated this result transmitted ref erence range: 0 - 0 /1 00 WBC. The refere nce range was not u sed to interpret this result as normal/abnor mal. % Neutros (test code = 71 % 429) % Lymphs (test code = 15 % 430) % Monos (test code = 10 % 431) % Eos (test code = 432) 3 % % Baso (test code = 437) 0 % # Neutros (test code = 4.76 See_Comment [Aut omated message] 670) The system [employer] generated this result transmitted ref erence range: 1.78 - 5 .38 K/L. The refe rence range was not u sed to interpret this result as normal/abnor mal. # Lymphs (test code = 1.03 See_Comment L [Auto mated message] 414) The system [employer] generated this result transmitted ref erence range: 1.32 - 3 .57 K/L. The refe rence range was not u sed to interpret this result as normal/abnor mal. # Monos (test code = 0.67 See_Comment [Autom ated message] 415) The system [employer] generated this result transmitted ref erence range: 0.30 - 0 .82 K/L. The refe rence range was not u sed to interpret this result as normal/abnor mal. # Eos (test code = 416) 0.21 See_Comment [Au tomated message] The system [employer] generated this result transmitted ref erence range: 0.04 - 0 .54 K/L. The refe rence range was not u sed to interpret this result as normal/abnor mal. # Baso (test code = 417) 0.03 See_Comment [A utomated message] The system [employer] generated this result transmitted ref erence range: 0.01 - 0 .08 K/L. The refe rence range was not u sed to interpret this result as normal/abnor mal. Immature 1 % 0-1 Granulocytes-Relative (test code = 2801) Lab Interpretation (test Abnormal code = 91688-8) [facility] W/PLT COUNT & AUTO [id number] 09:00:00 Test Item Value Reference Range Interpretation Comments WHITE BLOOD CELL COUNT (BEAKER) 6.8 K/ L 3.5-10.5 (test code = 775) RED BLOOD CELL COUNT (BEAKER) 2.86 M/ L 4.63-6.08 L (test code = 761) HEMOGLOBIN (BEAKER) (test code = 8.9 GM/DL 13.7-17.5 L 410) HEMATOCRIT (BEAKER) (test code = 27.3 % 40.1-51.0 L 411) MEAN CORPUSCULAR VOLUME (BEAKER) 95.5 fL 79.0-92.2 H (test code = 753) MEAN CORPUSCULAR HEMOGLOBIN 31.1 pg 25.7-32.2 (BEAKER) (test code = 751) MEAN CORPUSCULAR HEMOGLOBIN CONC 32.6 GM/DL 32.3-36.5 (BEAKER) (test code = 752) RED CELL DISTRIBUTION WIDTH 12.4 % 11.6-14.4 (BEAKER) (test code = 412) PLATELET COUNT (BEAKER) (test 232 K/CU MM 150-450 code = 756) MEAN PLATELET VOLUME (BEAKER) 9.7 fL 9.4-12.4 (test code = 754) NUCLEATED RED BLOOD CELLS 0 /100 WBC 0-0 (BEAKER) (test code = 413) NEUTROPHILS RELATIVE PERCENT 71 % (BEAKER) (test code = 429) LYMPHOCYTES RELATIVE PERCENT 15 % (BEAKER) (test code = 430) MONOCYTES RELATIVE PERCENT 10 % (BEAKER) (test code = 431) EOSINOPHILS RELATIVE PERCENT 3 % (BEAKER) (test code = 432) BASOPHILS RELATIVE PERCENT 0 % (BEAKER) (test code = 437) NEUTROPHILS ABSOLUTE COUNT 4.76 K/ L 1.78-5.38 (BEAKER) (test code = 670) LYMPHOCYTES ABSOLUTE COUNT 1.03 K/ L 1.32-3.57 L (BEAKER) (test code = 414) MONOCYTES ABSOLUTE COUNT (BEAKER) 0.67 K/ L 0.30-0.82 (test code = 415) EOSINOPHILS ABSOLUTE COUNT 0.21 K/ L 0.04-0.54 (BEAKER) (test code = 416) BASOPHILS ABSOLUTE COUNT (BEAKER) 0.03 K/ L 0.01-0.08 (test code = 417) IMMATURE GRANULOCYTES-RELATIVE 1 % 0-1 PERCENT (BEAKER) (test code = 2801) POCT-GLUCOSE [id number] 08:00:00 Test Item Value Reference Range Interpretation Comments POC-GLUCOSE METER 147 mg/dL 70-110 H : TESTED A T [facility] [address] (FUAD) (test code = LUIS Joel [facility], 1538) [address]: Business Solutions Consultant/Techni anoop ID = [id number] for OR RADHA DEE RAD, CHEST, 1 VIEW, NON [id number] 04:20:00while patient is intubated or has chest tubes.Reason for exam:->Status post CV SurgeryShould thisbe performed at the bedside?->Yes [facility] 1960 Sex: MFINAL REPORT CLINICAL INDICATION: Postop Comparison: 12/22/2020 The cardiomediastinal contours are stable. Central pulmonary vascular prominence and bilateral parenchymal and left pleural opacities are similar to previous. There is no pneumothorax. Signed: Kristi Glezeport Verified Date/Time: 12/23/2020 04:20:08 XR chest 1 view portable / [id number] 04:20:00 Interface, External Ris In - 12/23/2020 4:22 AM CDTFINAL REPORT CLINICAL INDICATION: Postop Comparison: 12/22/2020 The cardiomediastinal contours are stable. Central pulmonary vascular prominence and bilateral parenchymal and left pleural opacities are similar to previous. There is no pneumothorax. Signed: Kristi Glez Verified Date/Time: 12/23/2020 04:20:08 [facility] [id number] 21:22:00 Test Item Value Reference Range Interpretation Comments POC-GLUCOSE METER 203 mg/dL 70-110 H : TESTED A T [facility] 6720 (BEAKER) (test code = [facility], 1538) [address]: Business Solutions Consultant/Techni anoop ID = [id number] for Melida Cardenas POCT-GLUCOSE [id number] 17:24:00 Test Item Value Reference Range Interpretation Comments POC-GLUCOSE METER 159 mg/dL 70-110 H : TESTED A T [facility] 6720 (BEAKER) (test code = [facility], 1538) [address]: Business Solutions Consultant/Techni anoop ID = [id number] for MAGALYSTEVECARLOS WOODS POCT-GLUCOSE [id number] 12:14:00 Test Item Value Reference Range Interpretation Comments POC-GLUCOSE METER 188 mg/dL 70-110 H : TESTED A T [facility] 6720 (BEAKER) (test code = [facility], 1538) [address]: Business Solutions Consultant/Techni anoop ID = [id number] for CARLOS HARPER RAD, CHEST, 1 VIEW, NON [id number] 08:11:00while patient is intubated or has chest tubes.Reason for exam:->Status post CV SurgeryShould thisbe performed at the bedside?->Yes [facility] : 1960 Sex: MFINAL REPORT Chest, 1 view, 12/22/2020 5:12 AM. History: Postop. Co mparison: 12/21/2020. Discussion: The cardiac silhouette is unchanged. Left lower lobe linear opacities are unchanged. Median sternotomy wires are present. The soft tissues and osseous structures are intact. IMPRESSION: Left basilar atelectasis without significant change. Signed: Jules Tirado Verified Date/Time: 12/22/2020 08:11:52 Reading Location: [place] [address] Angio Body Reading Room POCT- GLUCOSE [id number] 07:49:00 Test Item Value Reference Range Interpretation Comments POC-GLUCOSE METER 156 mg/dL 70-110 H : TESTED A T [facility] [address] (BEAKER) (test code = LUIS Wisam [facility], 1538) [address]: Business Solutions Consultant/Techni anoop ID = [id number] for CARLOS HARPER BASIC METABOLIC [id number] 02:24:00 Test Item Value Reference Range Interpretation Comments SODIUM (BEAKER) 137 meq/L 136-145 (test code = 381) POTASSIUM (BEAKER) 3.6 meq/L 3.5-5.1 (test code = 379) CHLORIDE (BEAKER) 97 meq/L 98-107 L (test code = 382) CO2 (BEAKER) (test 32 meq/L 22-29 H code = 355) BLOOD UREA NITROGEN 10 mg/dL 7-21 (BEAKER) (test code = 354) CREATININE (BEAKER) 0.80 mg/dL 0.57-1.25 (test code = 358) GLUCOSE RANDOM 169 mg/dL 70-105 H (BEAKER) (test code = 652) CALCIUM (BEAKER) 8.2 mg/dL 8.4-10.2 L (test code = 697) EGFR (BEAKER) (test 98 mL/min/1.73 ESTIMA ROBERT GFR IS code = 1092) sq m NOT ACCURATE CREATININE CLEARANCE IN PREDICTING GLOMERULAR FILTRATION RATE . ESTIMATED GFR I S NOT APPLICABLE FOR DIALYSIS PATIEN TS. Business Solutions Consultant ID - [id number] 02:24:00 Test Item Value Reference Range Interpretation Comments MAGNESIUM (BEAKER) (test code = 1.8 mg/dL 1.6-2.6 627) Business Solutions Consultant ID - [id number] 02:24:00 Test Item Value Reference Range Interpretation Comments PHOSPHORUS (BEAKER) (test code = 2.9 mg/dL 2.3-4.7 604) Business Solutions Consultant ID - [id number] 02:02:00 Test Item Value Reference Range Interpretation Comments PARTIAL THROMBOPLASTIN TIME 61.2 seconds 22.5-36.0 H (BEAKER) (test code = 760) CBC W/PLT COUNT & AUTO [id number] 01:42:00 Test Item Value Reference Range Interpretation Comments WHITE BLOOD CELL COUNT (BEAKER) 7.6 K/ L 3.5-10.5 (test code = 775) RED BLOOD CELL COUNT (BEAKER) 2.78 M/ L 4.63-6.08 L (test code = 761) HEMOGLOBIN (BEAKER) (test code = 8.7 GM/DL 13.7-17.5 L 410) HEMATOCRIT (BEAKER) (test code = 26.8 % 40.1-51.0 L 411) MEAN CORPUSCULAR VOLUME (BEAKER) 96.4 fL 79.0-92.2 H (test code = 753) MEAN CORPUSCULAR HEMOGLOBIN 31.3 pg 25.7-32.2 (BEAKER) (test code = 751) MEAN CORPUSCULAR HEMOGLOBIN CONC 32.5 GM/DL 32.3-36.5 (BEAKER) (test code = 752) RED CELL DISTRIBUTION WIDTH 12.2 % 11.6-14.4 (BEAKER) (test code = 412) PLATELET COUNT (BEAKER) (test 172 K/CU MM 150-450 code = 756) MEAN PLATELET VOLUME (BEAKER) 10.3 fL 9.4-12.4 (test code = 754) NUCLEATED RED BLOOD CELLS 0 /100 WBC 0-0 (BEAKER) (test code = 413) NEUTROPHILS RELATIVE PERCENT 63 % (BEAKER) (test code = 429) LYMPHOCYTES RELATIVE PERCENT 23 % (BEAKER) (test code = 430) MONOCYTES RELATIVE PERCENT 11 % (BEAKER) (test code = 431) EOSINOPHILS RELATIVE PERCENT 3 % (BEAKER) (test code = 432) BASOPHILS RELATIVE PERCENT 0 % (BEAKER) (test code = 437) NEUTROPHILS ABSOLUTE COUNT 4.79 K/ L 1.78-5.38 (BEAKER) (test code = 670) LYMPHOCYTES ABSOLUTE COUNT 1.76 K/ L 1.32-3.57 (BEAKER) (test code = 414) MONOCYTES ABSOLUTE COUNT (BEAKER) 0.80 K/ L 0.30-0.82 (test code = 415) EOSINOPHILS ABSOLUTE COUNT 0.20 K/ L 0.04-0.54 (BEAKER) (test code = 416) BASOPHILS ABSOLUTE COUNT (BEAKER) 0.03 K/ L 0.01-0.08 (test code = 417) IMMATURE GRANULOCYTES-RELATIVE 1 % 0-1 PERCENT (BEAKER) (test code = 2801) [id number] 00:06:00 Test Item Value Reference Range Interpretation Comments PARTIAL THROMBOPLASTIN TIME 124.7 seconds 22.5-36.0 H (BEAKER) (test code = 760) POCT-GLUCOSE [id number] 20:38:00 Test Item Value Reference Range Interpretation Comments POC-GLUCOSE METER 165 mg/dL 70-110 H : TESTED A T [facility] 6720 (BEAKER) (test code = [facility], 1538) [address]: Business Solutions Consultant/Techni anoop ID = [id number] for JESUS GUEVARA POCT-GLUCOSE [id number] 17:21:00 Test Item Value Reference Range Interpretation Comments POC-GLUCOSE METER 174 mg/dL 70-110 H : TESTED A T [facility] 6720 (BEAKER) (test code = [facility], 1538) [address]: Business Solutions Consultant/Techni anoop ID = [id number] for CARLOS HARPER [id number] 17:09:00 Test Item Value Reference Range Interpretation Comments PARTIAL THROMBOPLASTIN TIME 82.1 seconds 22.5-36.0 H (BEAKER) (test code = 760) POCT-GLUCOSE [id number] 12:38:00 Test Item Value Reference Range Interpretation Comments POC-GLUCOSE METER 215 mg/dL 70-110 H : TESTED A T [facility] 67[address] (BEAKER) (test code = [place], 1538) [address]: Business Solutions Consultant/Techni anoop ID = [id number] for HERBIE MCDONOUGH Urinalysis w/Microscopic + Reflex to [id number] 11:03:00 Test Item Value Reference Range Interpretation Comments Color, UA (test code Light Yellow = 5778-6) Clarity, UA (test Clear code = 5767-9) Specific Odonnell, UA 1.006 1.001-1.035 (test code = 5811-5) pH, UA (test code = 6.5 5.0-8.0 5803-2) Protein, UA (test Negative Negative code = 79601-9) Glucose, UA (test Negative Negative code = 365) Ketones, UA (test Negative Negative code = 2514-8) Bilirubin, UA (test Negative Negative code = 98365-5) Blood, UA (test code Small Negative A = 56335-7) Nitrite, UA (test Negative Negative code = 5802-4) Leukocytes, UA (test Negative Negative code = 5799-2) Urobilinogen, UA 0.2 mg/dL 0.2-1 (test code = 86192-8) RBC, UA (test code = 5 See_Comment [Autom ated 15957-4) message] The system which generated this result transmit robert reference range : /HPF. The reference range was not used to interpret this result as normal/abnormal . WBC, UA (test code = 4 See_Comment [Autom ated 5821-4) message] The system which generated this result transmit robert reference range : /HPF. The reference range was not used to interpret this result as normal/abnormal . Specimen Source (test code = 2795) CITLALY (test code = CITLALY) Business Solutions Consultant ID - [auto]Business Solutions Consultant ID - tech Lab Interpretation Abnormal (test code = 69516-5) [facility] UR[facility] [id number] 11:03:00 Test Item Value Reference Range Interpretation Comments COLOR (BEAKER) (test code = 470) Light Yellow CLARITY (BEAKER) (test code = Clear 469) SPECIFIC GRAVITY UA (BEAKER) 1.006 1.001-1.035 (test code = 468) PH UA (BEAKER) (test code = 467) 6.5 5.0-8.0 PROTEIN UA (BEAKER) (test code = Negative Negative 464) GLUCOSE UA (BEAKER) (test code = Negative Negative 365) KETONES UA (BEAKER) (test code = Negative Negative 371) BILIRUBIN UA (BEAKER) (test code Negative Negative = 462) BLOOD UA (BEAKER) (test code = Small Negative A 461) NITRITE UA (BEAKER) (test code = Negative Negative 465) LEUKOCYTE ESTERASE UA (BEAKER) Negative Negative (test code = 466) UROBILINOGEN UA (BEAKER) (test 0.2 mg/dL 0.2-1.0 code = 463) RBC UA (BEAKER) (test code = 5 /HPF 519) WBC UA (BEAKER) (test code = 4 /HPF 520) SOURCE(BEAKER) (test code = 2795) Business Solutions Consultant ID - [auto]Business Solutions Consultant ID - [id number] 10:30:00 Test Item Value Reference Range Interpretation Comments PARTIAL THROMBOPLASTIN TIME 35.7 seconds 22.5-36.0 (BEAKER) (test code = 760) Prior to initiating heparinRAD, CHEST, 1 VIEW, NON [id number] 09:08:00while patient is intubated or has chest tubes.Reason for exam:->Status post CV SurgeryShould thisbe performed at the bedside?->Yes [facility] 1960 Sex: MFINAL REPORT Chest AP portable Comparison exam: 12/20/2020 History p rovided: Status post CV surgery Heart size normal. Left chest tube has been removed. No pneumothorax. Persistent mild atelectatic change in the left lower lobe. Lungs otherwise grossly clear and vascularity normal. Signed: Aldo John Verified Date/Time: 12/21/2020 09:08:06 Reading Location: [facility] Radiology Reading Room ECG 12 [id number] 08:18:23Interface, External Ris In - 12/21/2020 8:18 AM CDTVentricular Rate 137 BPMAtrial Rate 147 BPMQRS Duration 92 msQ-T Interval 334 msQTC Calculation(Bazett) 504 msR Jordan 23 degreesT Jordan - 50 degreesAtrial fibrillation with rapid ventricular responseAbnormal QRS-T angle, consider primary T wave abnormalityAbnormal ECGWhen compared with ECG of 18-DEC-2020 14:11,Afib has replaced NSRConfirmed by Kimo Reynoso ([id number]) on 12/21/2020 8:18:19 [facility] [id number] 08:07:00 Test Item Value Reference Range Interpretation Comments POC-GLUCOSE METER 186 mg/dL 70-110 H : TESTED A T [facility] 6720 (BEAKER) (test code = [place], 1538) [address]: Business Solutions Consultant/Techni anoop ID = [id number] for FRANKIE HN, HERBIE RAD, ABDOMEN/KUB, 1 VIEW [id number] 03:42:00Reason for exam:->inability to pass stoolDANIEL [facility] : 1960 Sex: MFINAL REPORT CLINICAL HISTORY: inability to pass stool TECHNIQUE: RAD, ABDOMEN/KUB, 1 VIEW AP COMPARISON: None IMPRESSION:Postsurgical changes of median sternotomy. Bandlike airspace opacities in the bilateral bases are similar to prior exam. Interval removal of previously seen left-sided chest tube. Few prominent loops of small bowel are noted within the central abdomen, without distal decompressed loops, findings may represent distal obstruction versus ileus. The large bowel is normal in caliber with moderate stool burden. Degenerative changes of the lower lumbarspine. Few sclerotic foci in the left femur are nonspecific and indeterminate. Signed: Susy Ramachandran Verified Date/Time: 12/21/2020 03:42:14 XR abdomen / KUB 1 [id number] 03:42:00Interface, External Ris In - 12/21/2020 3:44 AM CDTFINAL REPORT CLINICAL HISTORY: inability to pass stool TECHNIQUE: RAD, ABDOMEN/KUB, 1 VIEW AP COMPARISON: None IMPRESSION:Postsurgical changes of median sternotomy. Bandlike airspace opacities in the bilateral bases are similarto prior exam. Interval removal of previously seen left-sided chest tube. Few prominent loops of small bowel are noted within the central abdomen, without distal decompressed loops, findings may represent distal obstruction versus ileus. The large bowel is normal in caliber with moderate stool burden. Degenerative changes of the lower lumbar spine. Few sclerotic foci in the left femur are nonspecificand indeterminate. Signed: Susy Ramachandran MDRrosarioort Verified Date/Time: 12/21/2020 03:42:14 [facility] METABOLIC [id number] 02:08:00 Test Item Value Reference Range Interpretation Comments SODIUM (BEAKER) 133 meq/L 136-145 L (test code = 381) POTASSIUM (BEAKER) 3.7 meq/L 3.5-5.1 (test code = 379) CHLORIDE (BEAKER) 95 meq/L 98-107 L (test code = 382) CO2 (BEAKER) (test 29 meq/L 22-29 code = 355) BLOOD UREA NITROGEN 8 mg/dL 7-21 (BEAKER) (test code = 354) CREATININE (BEAKER) 0.73 mg/dL 0.57-1.25 (test code = 358) GLUCOSE RANDOM 168 mg/dL 70-105 H (BEAKER) (test code = 652) CALCIUM (BEAKER) 8.5 mg/dL 8.4-10.2 (test code = 697) EGFR (BEAKER) (test 109 mL/min/1.73 ESTIM ATED GFR IS code = 1092) sq m NOT ACCURATE CREATININE CLEARANCE IN PREDICTING GLOMERULAR FILTRATION RATE . ESTIMATED GFR I S NOT APPLICABLE FOR DIALYSIS PATIEN TS. Business Solutions Consultant ID - ANIL [id number] 02:08:00 Test Item Value Reference Range Interpretation Comments MAGNESIUM (BEAKER) (test code = 1.9 mg/dL 1.6-2.6 627) Business Solutions Consultant ID - ANIL [id number] 02:08:00 Test Item Value Reference Range Interpretation Comments PHOSPHORUS (BEAKER) (test code = 2.6 mg/dL 2.3-4.7 604) Business Solutions Consultant ID - ANIL LCBC W/PLT COUNT & AUTO [id number] 01:38:00 Test Item Value Reference Range Interpretation Comments WHITE BLOOD CELL COUNT (BEAKER) 10.2 K/ L 3.5-10.5 (test code = 775) RED BLOOD CELL COUNT (BEAKER) 3.02 M/ L 4.63-6.08 L (test code = 761) HEMOGLOBIN (BEAKER) (test code = 9.4 GM/DL 13.7-17.5 L 410) HEMATOCRIT (BEAKER) (test code = 28.6 % 40.1-51.0 L 411) MEAN CORPUSCULAR VOLUME (BEAKER) 94.7 fL 79.0-92.2 H (test code = 753) MEAN CORPUSCULAR HEMOGLOBIN 31.1 pg 25.7-32.2 (BEAKER) (test code = 751) MEAN CORPUSCULAR HEMOGLOBIN CONC 32.9 GM/DL 32.3-36.5 (BEAKER) (test code = 752) RED CELL DISTRIBUTION WIDTH 12.0 % 11.6-14.4 (BEAKER) (test code = 412) PLATELET COUNT (BEAKER) (test 143 K/CU MM 150-450 L code = 756) MEAN PLATELET VOLUME (BEAKER) 10.2 fL 9.4-12.4 (test code = 754) NUCLEATED RED BLOOD CELLS 0 /100 WBC 0-0 (BEAKER) (test code = 413) NEUTROPHILS RELATIVE PERCENT 73 % (BEAKER) (test code = 429) LYMPHOCYTES RELATIVE PERCENT 15 % (BEAKER) (test code = 430) MONOCYTES RELATIVE PERCENT 10 % (BEAKER) (test code = 431) EOSINOPHILS RELATIVE PERCENT 1 % (BEAKER) (test code = 432) BASOPHILS RELATIVE PERCENT 0 % (BEAKER) (test code = 437) NEUTROPHILS ABSOLUTE COUNT 7.48 K/ L 1.78-5.38 H (BEAKER) (test code = 670) LYMPHOCYTES ABSOLUTE COUNT 1.57 K/ L 1.32-3.57 (BEAKER) (test code = 414) MONOCYTES ABSOLUTE COUNT (BEAKER) 1.05 K/ L 0.30-0.82 H (test code = 415) EOSINOPHILS ABSOLUTE COUNT 0.06 K/ L 0.04-0.54 (BEAKER) (test code = 416) BASOPHILS ABSOLUTE COUNT (BEAKER) 0.04 K/ L 0.01-0.08 (test code = 417) IMMATURE GRANULOCYTES-RELATIVE 0 % 0-1 PERCENT (BEAKER) (test code = 2801) Calcium, [id number] 01:34:00 Test Item Value Reference Range Interpretation Comments Calcium, Ion (test code = 1993-) 1.10 mmol/L 1.12-1.27 L pH, Blood (test code = 26130-3) 7.43 Lab Interpretation (test code = Abnormal 83930-3) [facility] [id number] 01:34:00 Test Item Value Reference Range Interpretation Comments CALCIUM IONIZED (BEAKER) (test 1.10 mmol/L 1.12-1.27 L code = 698) PH, BLOOD (BEAKER) (test code = 7.43 1810) POCT-GLUCOSE [id number] 21:47:00 Test Item Value Reference Range Interpretation Comments POC-GLUCOSE METER 200 mg/dL 70-110 H : TESTED A T [facility] 6720 (BEAKER) (test code = [facility], 1538) 60696: Business Solutions Consultant/Techni anoop ID = [id number] for NITIN HARRIS POCT-GLUCOSE [id number] 17:23:00 Test Item Value Reference Range Interpretation Comments POC-GLUCOSE METER 182 mg/dL 70-110 H : TESTED A T [facility] 6720 (BEAKER) (test code = [facility] [place] [facility], 1538) 41637: Business Solutions Consultant/Techni anoop ID = [id number] for CARLOS HARPER POCT-GLUCOSE [id number] 12:16:00 Test Item Value Reference Range Interpretation Comments POC-GLUCOSE METER 174 mg/dL 70-110 H : TESTED A T [facility] 6720 (BEAKER) (test code = [facility], 1538) 96105: Business Solutions Consultant/Techni anoop ID = [id number] for CARLOS HARPER RAD, CHEST, 1 VIEW, NON [id number] 11:45:00while patient is intubated or has chest tubes.Reason for exam:->Status post CV SurgeryShould thisbe performed at the bedside?->Yes [facility] : 1960 Sex: MFINAL REPORT CLINICAL HISTORY: Status post CV Surgery TECHNIQUE: 1view of the chest. COMPARISON: 12/19/2020 IMPRESSION: The right central line has been removed. Left left chest tube remains. There is a trace left apical pneumothorax. Mild lung opacities are otherwise unchanged. The cardiomediastinal silhouette is magnified by technique with sternotomy wires. Signed: Maxime Pedro MDReport Verified Date/Time: 12/20/2020 11:45:51 Reading Location: [facility] Radiology Reading Room POCT-GLUCOSE [id number] 08:33:00 Test Item Value Reference Range Interpretation Comments POC-GLUCOSE METER 143 mg/dL 70-110 H : TESTED A T [facility] 6720 (BEAKER) (test code = LUIS Joel [facility], 1538) 79812: Business Solutions Consultant/Techni anoop ID = [id number] for CARLOS HARPER BASIC METABOLIC [id number] 05:53:00 Test Item Value Reference Range Interpretation Comments SODIUM (BEAKER) 135 meq/L 136-145 L (test code = 381) POTASSIUM (BEAKER) 4.1 meq/L 3.5-5.1 (test code = 379) CHLORIDE (BEAKER) 99 meq/L 98-107 (test code = 382) CO2 (BEAKER) (test 30 meq/L 22-29 H code = 355) BLOOD UREA NITROGEN 7 mg/dL 7-21 (BEAKER) (test code = 354) CREATININE (BEAKER) 0.75 mg/dL 0.57-1.25 (test code = 358) GLUCOSE RANDOM 153 mg/dL 70-105 H (BEAKER) (test code = 652) CALCIUM (BEAKER) 8.2 mg/dL 8.4-10.2 L (test code = 697) EGFR (BEAKER) (test 106 mL/min/1.73 ESTIM ATED GFR IS code = 1092) sq m NOT ACCURATE CREATININE CLEARANCE IN PREDICTING GLOMERULAR FILTRATION RATE . ESTIMATED GFR I S NOT APPLICABLE FOR DIALYSIS PATIEN TS. Business Solutions Consultant ID - PIAYA [id number] 05:53:00 Test Item Value Reference Range Interpretation Comments MAGNESIUM (BEAKER) (test code = 1.6 mg/dL 1.6-2.6 627) Business Solutions Consultant ID - PIAYA [id number] 05:53:00 Test Item Value Reference Range Interpretation Comments PHOSPHORUS (BEAKER) (test code = 2.5 mg/dL 2.3-4.7 604) Business Solutions Consultant ID - ANIL LCALCIUM, [id number] 05:23:00 Test Item Value Reference Range Interpretation Comments CALCIUM IONIZED (BEAKER) (test 1.14 mmol/L 1.12-1.27 code = 698) PH, BLOOD (BEAKER) (test code = 7.37 1810) CBC W/PLT COUNT & AUTO [id number] 05:04:00 Test Item Value Reference Range Interpretation Comments WHITE BLOOD CELL COUNT (BEAKER) 8.3 K/ L 3.5-10.5 (test code = 775) RED BLOOD CELL COUNT (BEAKER) 2.87 M/ L 4.63-6.08 L (test code = 761) HEMOGLOBIN (BEAKER) (test code = 8.9 GM/DL 13.7-17.5 L 410) HEMATOCRIT (BEAKER) (test code = 28.2 % 40.1-51.0 L 411) MEAN CORPUSCULAR VOLUME (BEAKER) 98.3 fL 79.0-92.2 H (test code = 753) MEAN CORPUSCULAR HEMOGLOBIN 31.0 pg 25.7-32.2 (BEAKER) (test code = 751) MEAN CORPUSCULAR HEMOGLOBIN CONC 31.6 GM/DL 32.3-36.5 L (BEAKER) (test code = 752) RED CELL DISTRIBUTION WIDTH 12.2 % 11.6-14.4 (BEAKER) (test code = 412) PLATELET COUNT (BEAKER) (test 128 K/CU MM 150-450 L code = 756) MEAN PLATELET VOLUME (BEAKER) 10.4 fL 9.4-12.4 (test code = 754) NUCLEATED RED BLOOD CELLS 0 /100 WBC 0-0 (BEAKER) (test code = 413) NEUTROPHILS RELATIVE PERCENT 68 % (BEAKER) (test code = 429) LYMPHOCYTES RELATIVE PERCENT 19 % (BEAKER) (test code = 430) MONOCYTES RELATIVE PERCENT 11 % (BEAKER) (test code = 431) EOSINOPHILS RELATIVE PERCENT 1 % (BEAKER) (test code = 432) BASOPHILS RELATIVE PERCENT 0 % (BEAKER) (test code = 437) NEUTROPHILS ABSOLUTE COUNT 5.70 K/ L 1.78-5.38 H (BEAKER) (test code = 670) LYMPHOCYTES ABSOLUTE COUNT 1.59 K/ L 1.32-3.57 (BEAKER) (test code = 414) MONOCYTES ABSOLUTE COUNT (BEAKER) 0.90 K/ L 0.30-0.82 H (test code = 415) EOSINOPHILS ABSOLUTE COUNT 0.09 K/ L 0.04-0.54 (BEAKER) (test code = 416) BASOPHILS ABSOLUTE COUNT (BEAKER) 0.03 K/ L 0.01-0.08 (test code = 417) IMMATURE GRANULOCYTES-RELATIVE 0 % 0-1 PERCENT (BEAKER) (test code = 2801) POCT-GLUCOSE [id number] 21:58:00 Test Item Value Reference Range Interpretation Comments POC-GLUCOSE METER 155 mg/dL 70-110 H : TESTED A T [facility] 6720 (BEAKER) (test code = [facility] [place] [facility], 1538) 29113: Business Solutions Consultant/Techni anoop ID = [id number] for [place] POCT-GLUCOSE [id number] 15:24:00 Test Item Value Reference Range Interpretation Comments POC-GLUCOSE METER 113 mg/dL 70-110 H : TESTED A T [facility] 6720 (BEAKER) (test code = [facility], 1538) 12485: Business Solutions Consultant/Techni anoop ID = [id number] for EK CALEB CULLEN RAD, CHEST, 1 VIEW, NON [id number] 08:43:00while patient is intubated or has chest tubes.Reason for exam:->Status post CV SurgeryShould thisbe performed at the bedside?->Yes [facility] : 1960 Sex: MFINAL REPORT CLINICAL HISTORY: Status post CV Surgery TECHNIQUE: 1 view of the chest. COMPARISON: 12/18/2020 IMPRESSION: The ETT and NGT have been removed. The centralline and chest tubes remain. The earlier trace left apical pneumothorax is not definitively seen. There are increased mild bibasilar airspace opacities. A small left pleural effusion cannot be excluded. The cardiomediastinal silhouette is magnified by technique with sternotomy wires. Signed: Maxime Pedro MDReport Verified Date/Time: 12/19/2020 08:43:46 Reading Location: [facility] Radiology Reading Room BASIC METABOLIC [id number] 05:51:00 Test Item Value Reference Range Interpretation Comments SODIUM (BEAKER) 139 meq/L 136-145 (test code = 381) POTASSIUM (BEAKER) 3.9 meq/L 3.5-5.1 (test code = 379) CHLORIDE (BEAKER) 107 meq/L 98-107 (test code = 382) CO2 (BEAKER) (test 24 meq/L 22-29 code = 355) BLOOD UREA NITROGEN 10 mg/dL 7-21 (BEAKER) (test code = 354) CREATININE (BEAKER) 0.68 mg/dL 0.57-1.25 (test code = 358) GLUCOSE RANDOM 188 mg/dL 70-105 H (BEAKER) (test code = 652) CALCIUM (BEAKER) 7.4 mg/dL 8.4-10.2 L (test code = 697) EGFR (BEAKER) (test 118 mL/min/1.73 ESTIM ATED GFR IS code = 1092) sq m NOT ACCURATE CREATININE CLEARANCE IN PREDICTING GLOMERULAR FILTRATION RATE . ESTIMATED GFR I S NOT APPLICABLE FOR DIALYSIS PATIEN TS. Business Solutions Consultant ID - ROSSY [id number] 05:49:00 Test Item Value Reference Range Interpretation Comments MAGNESIUM (BEAKER) (test code = 1.6 mg/dL 1.6-2.6 627) Business Solutions Consultant ID - ROSSY [id number] 05:49:00 Test Item Value Reference Range Interpretation Comments PHOSPHORUS (BEAKER) (test code = 4.3 mg/dL 2.3-4.7 604) Business Solutions Consultant ID - ROSSY MCALCIUM, [id number] 05:45:00 Test Item Value Reference Range Interpretation Comments CALCIUM IONIZED (BEAKER) (test 1.06 mmol/L 1.12-1.27 L code = 698) PH, BLOOD (BEAKER) (test code = 7.38 1810) CBC W/PLT COUNT & AUTO [id number] 04:51:00 Test Item Value Reference Range Interpretation Comments WHITE BLOOD CELL COUNT (BEAKER) 8.5 K/ L 3.5-10.5 (test code = 775) RED BLOOD CELL COUNT (BEAKER) 3.19 M/ L 4.63-6.08 L (test code = 761) HEMOGLOBIN (BEAKER) (test code = 9.8 GM/DL 13.7-17.5 L 410) HEMATOCRIT (BEAKER) (test code = 30.2 % 40.1-51.0 L 411) MEAN CORPUSCULAR VOLUME (BEAKER) 94.7 fL 79.0-92.2 H (test code = 753) MEAN CORPUSCULAR HEMOGLOBIN 30.7 pg 25.7-32.2 (BEAKER) (test code = 751) MEAN CORPUSCULAR HEMOGLOBIN CONC 32.5 GM/DL 32.3-36.5 (BEAKER) (test code = 752) RED CELL DISTRIBUTION WIDTH 12.0 % 11.6-14.4 (BEAKER) (test code = 412) PLATELET COUNT (BEAKER) (test 156 K/CU MM 150-450 code = 756) MEAN PLATELET VOLUME (BEAKER) 10.0 fL 9.4-12.4 (test code = 754) NUCLEATED RED BLOOD CELLS 0 /100 WBC 0-0 (BEAKER) (test code = 413) NEUTROPHILS RELATIVE PERCENT 77 % (BEAKER) (test code = 429) LYMPHOCYTES RELATIVE PERCENT 11 % (BEAKER) (test code = 430) MONOCYTES RELATIVE PERCENT 11 % (BEAKER) (test code = 431) EOSINOPHILS RELATIVE PERCENT 0 % (BEAKER) (test code = 432) BASOPHILS RELATIVE PERCENT 0 % (BEAKER) (test code = 437) NEUTROPHILS ABSOLUTE COUNT 6.56 K/ L 1.78-5.38 H (BEAKER) (test code = 670) LYMPHOCYTES ABSOLUTE COUNT 0.95 K/ L 1.32-3.57 L (BEAKER) (test code = 414) MONOCYTES ABSOLUTE COUNT (BEAKER) 0.89 K/ L 0.30-0.82 H (test code = 415) EOSINOPHILS ABSOLUTE COUNT 0.01 K/ L 0.04-0.54 L (BEAKER) (test code = 416) BASOPHILS ABSOLUTE COUNT (BEAKER) 0.03 K/ L 0.01-0.08 (test code = 417) IMMATURE GRANULOCYTES-RELATIVE 1 % 0-1 PERCENT (BEAKER) (test code = 2801) POCT-GLUCOSE [id number] 23:08:00 Test Item Value Reference Range Interpretation Comments POC-GLUCOSE METER 174 mg/dL 70-110 H : TESTED A T [facility] 6720 (BEAKER) (test code = [place], 1538) 30[address]: Business Solutions Consultant/Techni anoop ID = [id number] for ELVIS BARAHONA Blood gas, [id number] 22:30:00 Test Item Value Reference Range Interpretation Comments pH, Arterial (test code 7.40 7.35-7.45 = 2744-1) pCO2, Arterial (test 46 See_Comment H [Autom ated message] code = 2019-8) The system [employer] generated this result transmit robert reference range : 35 - 45 mm Hg. The reference range was not used to interpret this result as normal/abnormal . pO2, Arterial (test 153 See_Comment H [Automa robert message] code = 2703-7) The system [employer] generated this result transmit robert reference range : 80 - 90 mm Hg. The reference range was not used to interpret this result as normal/abnormal . O2 Sat, Arterial (test 98.9 % 96-97 H code = 2708-6) HCO3, Arterial (test 28 mmol/L 21-29 code = 1960-4) Base Excess, Arterial 2.7 mmol/L -2-3 (test code = 1925-7) Patient Temperature 37.5 (test code = 8310-5) FIO2 (test code = 1819) 40 Lab Interpretation Abnormal (test code = 69859-8) [facility]Stat [id number] 22:30:00 Test Item Value Reference Range Interpretation Comments Hemoglobin (test code = 11.7 See_Comment L [Au tomated message] 786-4) The system [employer] generated this result transmitted ref erence range: 13.0 - 1 6.8 GM/DL. The refe rence range was not u sed to interpret this result as normal/abnor mal. Hematocrit (test code = 34.0 % 40-50 L 4544-3) Lab Interpretation (test Abnormal code = 57360-3) [facility] [id number] 22:30:00 Test Item Value Reference Range Interpretation Comments Glucose (test code = 2345-7) 181 mg/dL 70-110 H Lab Interpretation (test code = Abnormal 51236-4) [facility] [id number] 22:30:00 Test Item Value Reference Range Interpretation Comments Sodium (test code = 2951-2) 138 meq/L 136-145 Lab Interpretation (test code = Normal 56843-7) [facility] [id number] 22:30:00 Test Item Value Reference Range Interpretation Comments Potassium (test code = 2823-3) 3.6 meq/L 3.6-5.5 Lab Interpretation (test code = Normal 60423-8) [facility] [id number] 22:30:00 Test Item Value Reference Range Interpretation Comments SODIUM (BEAKER) (test code = 381) 138 meq/L 136-145 POTASSIUM-STAT [id number] 22:30:00 Test Item Value Reference Range Interpretation Comments POTASSIUM (BEAKER) (test code = 3.6 meq/L 3.6-5.5 379) BLOOD GAS, [id number] 22:30:00 Test Item Value Reference Range Interpretation Comments PH ARTERIAL (BEAKER) (test code = 7.40 7.35-7.45 383) PCO2 ARTERIAL (BEAKER) (test code 46 mm Hg 35-45 H = 384) PO2 ARTERIAL (BEAKER) (test code = 153 mm Hg 80-90 H 385) O2 SATURATION ARTERIAL (BEAKER) 98.9 % 96.0-97.0 H (test code = 386) HCO3 ARTERIAL (BEAKER) (test code 28 mmol/L 21-29 = 388) BASE EXCESS ARTERIAL (BEAKER) 2.7 mmol/L -2.0-3.0 (test code = 387) PATIENT TEMPERATURE (BEAKER) (test 37.5 code = 1818) FIO2 (BEAKER) (test code = 1819) 40.0 GLUCOSE-STAT [id number] 22:30:00 Test Item Value Reference Range Interpretation Comments GLUCOSE RANDOM (BEAKER) (test code 181 mg/dL 70-110 H = 652) HGB/HCT (H&H) - STAT [id number] 22:30:00 Test Item Value Reference Range Interpretation Comments HEMOGLOBIN (BEAKER) (test code = 11.7 GM/DL 13.0-16.8 L 410) HEMATOCRIT (BEAKER) (test code = 34.0 % 40.0-50.0 L 411) CALCIUM, [id number] 22:30:00 Test Item Value Reference Range Interpretation Comments CALCIUM IONIZED (BEAKER) (test 1.07 mmol/L 1.12-1.27 L code = 698) PH, BLOOD (BEAKER) (test code = 7.40 1810) [id number] 21:26:00 Test Item Value Reference Range Interpretation Comments MAGNESIUM (BEAKER) (test code = 1.3 mg/dL 1.6-2.6 L 627) Business Solutions Consultant ID - DBBASIC METABOLIC [id number] 21:26:00 Test Item Value Reference Range Interpretation Comments SODIUM (BEAKER) 140 meq/L 136-145 (test code = 381) POTASSIUM (BEAKER) 3.8 meq/L 3.5-5.1 (test code = 379) CHLORIDE (BEAKER) 105 meq/L 98-107 (test code = 382) CO2 (BEAKER) (test 25 meq/L 22-29 code = 355) BLOOD UREA NITROGEN 12 mg/dL 7-21 (BEAKER) (test code = 354) CREATININE (BEAKER) 0.71 mg/dL 0.57-1.25 (test code = 358) GLUCOSE RANDOM 167 mg/dL 70-105 H (BEAKER) (test code = 652) CALCIUM (BEAKER) 7.8 mg/dL 8.4-10.2 L (test code = 697) EGFR (BEAKER) (test 112 mL/min/1.73 ESTIM ATED GFR IS code = 1092) sq m NOT ACCURATE CREATININE CLEARANCE IN PREDICTING GLOMERULAR FILTRATION RATE . ESTIMATED GFR I S NOT APPLICABLE FOR DIALYSIS PATIEN TS. Business Solutions Consultant ID - DBBLOOD GAS, [id number] 21:01:00 Test Item Value Reference Range Interpretation Comments PH ARTERIAL (BEAKER) (test code = 7.39 7.35-7.45 383) PCO2 ARTERIAL (BEAKER) (test code 47 mm Hg 35-45 H = 384) PO2 ARTERIAL (BEAKER) (test code = 105 mm Hg 80-90 H 385) O2 SATURATION ARTERIAL (BEAKER) 97.7 % 96.0-97.0 H (test code = 386) HCO3 ARTERIAL (BEAKER) (test code 28 mmol/L 21-29 = 388) BASE EXCESS ARTERIAL (BEAKER) 2.1 mmol/L -2.0-3.0 (test code = 387) PATIENT TEMPERATURE (BEAKER) (test 37.2 code = 1818) FIO2 (BEAKER) (test code = 1819) 40.0 GLUCOSE-STAT [id number] 21:01:00 Test Item Value Reference Range Interpretation Comments GLUCOSE RANDOM (BEAKER) (test code 160 mg/dL 70-110 H = 652) HGB/HCT (H&H) - STAT [id number] 21:01:00 Test Item Value Reference Range Interpretation Comments HEMOGLOBIN (BEAKER) (test code = 12.0 GM/DL 13.0-16.8 L 410) HEMATOCRIT (BEAKER) (test code = 35.0 % 40.0-50.0 L 411) SODIUM NA-STAT [id number] 21:00:00 Test Item Value Reference Range Interpretation Comments SODIUM (BEAKER) (test code = 381) 139 meq/L 136-145 POTASSIUM-STAT [id number] 21:00:00 Test Item Value Reference Range Interpretation Comments POTASSIUM (BEAKER) (test code = 3.6 meq/L 3.6-5.5 379) POCT-GLUCOSE [id number] 18:23:00 Test Item Value Reference Range Interpretation Comments POC-GLUCOSE METER 131 mg/dL 70-110 H : TESTED A T [facility] 6720 (BEAKER) (test code = [place], 1538) [address]: Business Solutions Consultant/Techni anoop ID = [id number] for KIM MCDOWELL Lactic Acid, [id number] 18:21:00 Test Item Value Reference Range Interpretation Comments Lactate, Art (test code = 1.8 mmol/L 0.5-2.2 2874) CITLALY (test code = CITLALY) Business Solutions Consultant ID - DB Lab Interpretation (test Normal code = 42857-5) [facility]CT[facility]ID, [id number] 18:21:00 Test Item Value Reference Range Interpretation Comments LACTATE BLOOD ARTERIAL (2) 1.8 mmol/L 0.5-2.2 (BEAKER) (test code = 2874) Business Solutions Consultant ID - DBBLOOD GAS, [id number] 18:14:00 Test Item Value Reference Range Interpretation Comments PH ARTERIAL (BEAKER) (test code = 7.31 7.35-7.45 L 383) PCO2 ARTERIAL (BEAKER) (test code 57 mm Hg 35-45 H = 384) PO2 ARTERIAL (BEAKER) (test code = 152 mm Hg 80-90 H 385) O2 SATURATION ARTERIAL (BEAKER) 98.8 % 96.0-97.0 H (test code = 386) HCO3 ARTERIAL (BEAKER) (test code 29 mmol/L 21-29 = 388) BASE EXCESS ARTERIAL (BEAKER) 1.3 mmol/L -2.0-3.0 (test code = 387) PATIENT TEMPERATURE (BEAKER) (test 36.9 code = 1818) FIO2 (BEAKER) (test code = 1819) 50.0 POCT-GLUCOSE [id number] 17:18:00 Test Item Value Reference Range Interpretation Comments POC-GLUCOSE METER 150 mg/dL 70-110 H : TESTED A T [facility] 6720 (BEAKER) (test code = [facility] [place] 15[facility] [address]: Business Solutions Consultant/Techni anoop ID = [id number] for Emre Tran POCT-GLUCOSE [id number] 16:20:00 Test Item Value Reference Range Interpretation Comments POC-GLUCOSE METER 189 mg/dL 70-110 H : TESTED A T [facility] 6720 (BEAKER) (test code = [facility] [employer] [facility], 1538) 01078: Business Solutions Consultant/Techni anoop ID = [id number] for Emre Tran RAD, CHEST, 1 VIEW, NON [id number] 15:45:00Reason for exam:->Status post CV Surgery post op day 0Should this be performed at the bedside?->Yes [facility] 1960 Sex: MFINAL REPORT CLINICAL HISTORY: Status post CV Surgery post op day 0 TECHNIQUE: 1 view of the chest. COMPARISON: 12/17/2020 IMPRESSION: The patient is status post mediansternotomy with an endotracheal tube at the clavicles, a right central line at the cavoatrial junction, a nasogastric tube in the stomach, and medial and left-sided chest tubes. There is a trace left apical pneumothorax. There are mildly prominent lung markings bilaterally. Signed: Maxime Pedro MDReport Verified Date/Time: 12/18/2020 15:45:07 Reading Location: [facility] Radiology Reading Room [id number] 14:27:00 Test Item Value Reference Interpretation Comments Range Protime (test code = 15.8 See_Comment H [Autom ated 5902-2) message] The system which generated this result transmitted reference range : 11.9 - 14.2 seconds. The reference range was not used to interpret this result as normal/abnormal . INR (test code = 1.30 See_Comment [Automated 9061-6) message] The system which generated this result transmitted reference range : <=5.90. The reference range was not used to interpret this result as normal/abnormal . PTT (test code = 24.8 See_Comment [Automated 56159-6) message] The system which generated this result transmitted reference range : 22.5 - 36.0 seconds. The reference range was not used to interpret this result as normal/abnormal . CITLALY (test code = Effective 02/03/2019: CITLALY) PT Reference Range ChangeNew: 11.9-14.2 Previous: 11.7-14.7 RECOMMENDED COUMADIN/WARFARIN INR THERAPY RANGESSTANDARD DOSE: 2.0-3.0 Includes: PROPHYLAXIS for venous thrombosis, systemic embolization; TREATMENT for venous thrombosis and/or pulmonary embolus.HIGH RISK: Target INR is 2.5-3.5 for patients wiht mechanical heart valves. 6 hours after starting heparin infusion and as indicated per sliding scale Lab Interpretation Abnormal (test code = 61909-9) [id number] 14:27:00 Test Item Value Reference Range Interpretation Comments PARTIAL THROMBOPLASTIN TIME 24.8 seconds 22.5-36.0 (BEAKER) (test code = 760) 6 hours after starting heparin infusion and as indicated per sliding scale [id number] 14:27:00 Test Item Value Reference Range Interpretation Comments PROTIME (BEAKER) (test 15.8 seconds 11.9-14.2 H code = 759) INR (BEAKER) (test 1.30 See_Comment [Automat ed code = 370) message] The sy stem which generated this result transmitted reference range : <=5.90. The reference range was not used to interpret this result as normal/abnormal . PARTIAL THROMBOPLASTIN 24.8 seconds 22.5-36.0 TIME (BEAKER) (test code = 760) Effective 02/03/2019: PT Reference Range ChangeNew: 11.9-14.2 Previous: 11.7- 14.7RECOMMENDED COUMADIN/WARFARIN INR THERAPY RANGESSTANDARD DOSE: 2.0-3.0 Includes: PROPHYLAXIS for venous thrombosis, systemic embolization; TREATMENT for venous thrombosis and/or pulmonary embolus.HIGH RISK: Target INR is2.5-3.5 for patients wiht mechanical heart valves.6 hours after starting heparin infusion and as indicated per sliding scaleBASIC METABOLIC [id number] 14:23:00 Test Item Value Reference Range Interpretation Comments SODIUM (BEAKER) 138 meq/L 136-145 (test code = 381) POTASSIUM (BEAKER) 5.0 meq/L 3.5-5.1 Specimen slightly (test code = 379) hemolyzed CHLORIDE (BEAKER) 104 meq/L 98-107 (test code = 382) CO2 (BEAKER) (test 25 meq/L 22-29 code = 355) BLOOD UREA NITROGEN 10 mg/dL 7-21 (BEAKER) (test code = 354) CREATININE (BEAKER) 0.71 mg/dL 0.57-1.25 Specimen slightly (test code = 358) hemolyzed GLUCOSE RANDOM 246 mg/dL 70-105 H (BEAKER) (test code = 652) CALCIUM (BEAKER) 8.5 mg/dL 8.4-10.2 (test code = 697) EGFR (BEAKER) (test 112 mL/min/1.73 ESTIM ATED GFR IS code = 1092) sq m NOT ACCURATE CREATININE CLEARANCE IN PREDICTING GLOMERULAR FILTRATION RATE . ESTIMATED GFR I S NOT APPLICABLE FOR DIALYSIS PATIEN TS. Business Solutions Consultant ID - SEP CLACTIC ACID, [id number] 14:21:00 Test Item Value Reference Range Interpretation Comments LACTATE BLOOD 2.2 mmol/L 0.5-2.2 Specimen sligh tly ARTERIAL (2) (BEAKER) hemoly zed (test code = 2874) Business [employer] Consultant ID - SEP CCBC W/PLT COUNT & AUTO [id number] 14:13:00 Test Item Value Reference Range Interpretation Comments WHITE BLOOD CELL COUNT (BEAKER) 12.3 K/ L 3.5-10.5 H (test code = 775) RED BLOOD CELL COUNT (BEAKER) 4.03 M/ L 4.63-6.08 L (test code = 761) HEMOGLOBIN (BEAKER) (test code = 12.5 GM/DL 13.7-17.5 L 410) HEMATOCRIT (BEAKER) (test code = 37.3 % 40.1-51.0 L 411) MEAN CORPUSCULAR VOLUME (BEAKER) 92.6 fL 79.0-92.2 H (test code = 753) MEAN CORPUSCULAR HEMOGLOBIN 31.0 pg 25.7-32.2 (BEAKER) (test code = 751) MEAN CORPUSCULAR HEMOGLOBIN CONC 33.5 GM/DL 32.3-36.5 (BEAKER) (test code = 752) RED CELL DISTRIBUTION WIDTH 12.0 % 11.6-14.4 (BEAKER) (test code = 412) PLATELET COUNT (BEAKER) (test 134 K/CU MM 150-450 L code = 756) MEAN PLATELET VOLUME (BEAKER) 9.6 fL 9.4-12.4 (test code = 754) NUCLEATED RED BLOOD CELLS 0 /100 WBC 0-0 (BEAKER) (test code = 413) NEUTROPHILS RELATIVE PERCENT 83 % (BEAKER) (test code = 429) LYMPHOCYTES RELATIVE PERCENT 10 % (BEAKER) (test code = 430) MONOCYTES RELATIVE PERCENT 4 % (BEAKER) (test code = 431) EOSINOPHILS RELATIVE PERCENT 2 % (BEAKER) (test code = 432) BASOPHILS RELATIVE PERCENT 0 % (BEAKER) (test code = 437) NEUTROPHILS ABSOLUTE COUNT 10.20 K/ L 1.78-5.38 H (BEAKER) (test code = 670) LYMPHOCYTES ABSOLUTE COUNT 1.18 K/ L 1.32-3.57 L (BEAKER) (test code = 414) MONOCYTES ABSOLUTE COUNT (BEAKER) 0.52 K/ L 0.30-0.82 (test code = 415) EOSINOPHILS ABSOLUTE COUNT 0.20 K/ L 0.04-0.54 (BEAKER) (test code = 416) BASOPHILS ABSOLUTE COUNT (BEAKER) 0.03 K/ L 0.01-0.08 (test code = 417) IMMATURE GRANULOCYTES-RELATIVE 1 % 0-1 PERCENT (BEAKER) (test code = 2801) BLOOD GAS, [id number] 14:11:00 Test Item Value Reference Range Interpretation Comments PH ARTERIAL (BEAKER) (test code = 7.41 7.35-7.45 383) PCO2 ARTERIAL (BEAKER) (test code 41 mm Hg 35-45 = 384) PO2 ARTERIAL (BEAKER) (test code = 144 mm Hg 80-90 H 385) O2 SATURATION ARTERIAL (BEAKER) 98.9 % 96.0-97.0 H (test code = 386) HCO3 ARTERIAL (BEAKER) (test code 25 mmol/L 21-29 = 388) BASE EXCESS ARTERIAL (BEAKER) 0.2 mmol/L -2.0-3.0 (test code = 387) PATIENT TEMPERATURE (BEAKER) (test 35.6 code = 1818) FIO2 (BEAKER) (test code = 1819) 50.0 Oxygen saturation, [id number] 14:08:00 Test Item Value Reference Range Interpretation Comments O2 Saturation (Measured) (test code = 78.3 % 41402-9) [facility], [id number] 14:08:00 Test Item Value Reference Range Interpretation Comments O2 SATURATION (MEASURED) (BEAKER) 78.3 % (test code = 1455) [id number] 14:08:00 Test Item Value Reference Range Interpretation Comments MAGNESIUM (BEAKER) (test code = 1.6 mg/dL 1.6-2.6 627) Business Solutions Consultant ID - LUPE [id number] 14:08:00 Test Item Value Reference Range Interpretation Comments PHOSPHORUS (BEAKER) (test code = 3.8 mg/dL 2.3-4.7 604) Business Solutions Consultant ID - LUPE CPOC ACTIVATED CLOTTING [id number] 13:16:00 Test Item Value Reference Range Interpretation Comments Activated Clotting Time 98 sec : 74 -137 seconds, (test code = 441) Baseline: TESTED AT [address], [facility] 30: Business Solutions Consultant/Techni anoop ID = [id number] for Le , [place] [id number] 13:16:00 Test Item Value Reference Range Interpretation Comments ACTIVATED CLOTTING TIME 98 sec : 74 -137 seconds, (BEAKER) (test code = Baseli ne: TESTED AT 441) [address], [facility] 30: Business Solutions Consultant/Techni anoop ID = [id number] for Le , [place] [id number] 13:16:00 Test Item Value Reference Range Interpretation Comments ACTIVATED CLOTTING TIME 455 sec : 74 -137 seconds, (BEAKER) (test code = Baseli ne: TESTED AT 441) [address], [facility] 30: Business Solutions Consultant/Techni anoop ID = [id number] for Le , [place] [id number] 13:16:00 Test Item Value Reference Range Interpretation Comments ACTIVATED CLOTTING TIME 450 sec : 74 -137 seconds, (BEAKER) (test code = Baseli ne: TESTED AT 441) [address], [facility] 30: Business Solutions Consultant/Techni anoop ID = [id number] for Le UgoCosta [id number] 13:16:00 Test Item Value Reference Range Interpretation Comments ACTIVATED CLOTTING TIME 521 sec : 74 -137 seconds, (BEAKER) (test code = Baseli ne: TESTED AT 441) [facility] [address], [facility] 30: Business Solutions Consultant/Techni anoop ID = [id number] for Le [place] [id number] 13:15:00 Test Item Value Reference Range Interpretation Comments ACTIVATED CLOTTING TIME 114 sec : 74 -137 seconds, (BEAKER) (test code = Baseli ne: TESTED AT 441) [address], [facility] 30: Business Solutions Consultant/Techni anoop ID = [id number] for HECTOR CUELLAR CALCIUM, [id number] 13:06:00 Test Item Value Reference Range Interpretation Comments CALCIUM IONIZED (BEAKER) (test 1.15 mmol/L 1.12-1.27 code = 698) PH, BLOOD (BEAKER) (test code = 7.43 1810) BLOOD GAS, [id number] 13:06:00 Test Item Value Reference Range Interpretation Comments PH ARTERIAL (BEAKER) (test code = 7.44 7.35-7.45 383) PCO2 ARTERIAL (BEAKER) (test code 37 mm Hg 35-45 = 384) PO2 ARTERIAL (BEAKER) (test code = 212 mm Hg 80-90 H 385) O2 SATURATION ARTERIAL (BEAKER) 99.5 % 96.0-97.0 H (test code = 386) HCO3 ARTERIAL (BEAKER) (test code 25 mmol/L 21-29 = 388) BASE EXCESS ARTERIAL (BEAKER) 0.4 mmol/L -2.0-3.0 (test code = 387) PATIENT TEMPERATURE (BEAKER) (test 35.9 code = 1818) FIO2 (BEAKER) (test code = 1819) 59.0 SODIUM NA-STAT [id number] 13:06:00 Test Item Value Reference Range Interpretation Comments SODIUM (BEAKER) (test code = 381) 133 meq/L 136-145 L POTASSIUM-STAT [id number] 13:06:00 Test Item Value Reference Range Interpretation Comments POTASSIUM (BEAKER) (test code = 5.8 meq/L 3.6-5.5 H 379) GLUCOSE-STAT [id number] 13:06:00 Test Item Value Reference Range Interpretation Comments GLUCOSE RANDOM (BEAKER) (test code 216 mg/dL 70-110 H = 652) HGB/HCT (H&H) - STAT [id number] 13:06:00 Test Item Value Reference Range Interpretation Comments HEMOGLOBIN (BEAKER) (test code = 12.5 GM/DL 13.0-16.8 L 410) HEMATOCRIT (BEAKER) (test code = 37.0 % 40.0-50.0 L 411) BLOOD GAS, [id number] 12:36:00 Test Item Value Reference Range Interpretation Comments PH ARTERIAL (BEAKER) (test code = 7.54 7.35-7.45 H 383) PCO2 ARTERIAL (BEAKER) (test code 30 mm Hg 35-45 L = 384) PO2 ARTERIAL (BEAKER) (test code = 247 mm Hg 80-90 H 385) O2 SATURATION ARTERIAL (BEAKER) 99.7 % 96.0-97.0 H (test code = 386) HCO3 ARTERIAL (BEAKER) (test code 26 mmol/L 21-29 = 388) BASE EXCESS ARTERIAL (BEAKER) 2.9 mmol/L -2.0-3.0 (test code = 387) PATIENT TEMPERATURE (BEAKER) (test 35.0 code = 1818) FIO2 (BEAKER) (test code = 1819) 70.0 SODIUM NA-STAT [id number] 12:36:00 Test Item Value Reference Range Interpretation Comments SODIUM (BEAKER) (test code = 381) 133 meq/L 136-145 L POTASSIUM-STAT [id number] 12:36:00 Test Item Value Reference Range Interpretation Comments POTASSIUM (BEAKER) (test code = 5.9 meq/L 3.6-5.5 H 379) GLUCOSE-STAT [id number] 12:36:00 Test Item Value Reference Range Interpretation Comments GLUCOSE RANDOM (BEAKER) (test code 224 mg/dL 70-110 H = 652) HGB/HCT (H&H) - STAT [id number] 12:36:00 Test Item Value Reference Range Interpretation Comments HEMOGLOBIN (BEAKER) (test code = 11.5 GM/DL 13.0-16.8 L 410) HEMATOCRIT (BEAKER) (test code = 34.0 % 40.0-50.0 L 411) POTASSIUM-STAT [id number] 11:54:00 Test Item Value Reference Range Interpretation Comments POTASSIUM (BEAKER) (test code = 6.2 meq/L 3.6-5.5 HH 379) BLOOD GAS, [id number] 11:53:00 Test Item Value Reference Range Interpretation Comments PH ARTERIAL (BEAKER) (test code = 7.44 7.35-7.45 383) PCO2 ARTERIAL (BEAKER) (test code 34 mm Hg 35-45 L = 384) PO2 ARTERIAL (BEAKER) (test code 473 mm Hg 80-90 H = 385) O2 SATURATION ARTERIAL (BEAKER) 99.9 % 96.0-97.0 H (test code = 386) HCO3 ARTERIAL (BEAKER) (test code 24 mmol/L 21-29 = 388) BASE EXCESS ARTERIAL (BEAKER) -1.7 mmol/L -2.0-3.0 (test code = 387) PATIENT TEMPERATURE (BEAKER) 30.8 (test code = 1818) FIO2 (BEAKER) (test code = 1819) 80.0 SODIUM NA-STAT [id number] 11:53:00 Test Item Value Reference Range Interpretation Comments SODIUM (BEAKER) (test code = 381) 127 meq/L 136-145 L GLUCOSE-STAT [id number] 11:53:00 Test Item Value Reference Range Interpretation Comments GLUCOSE RANDOM (BEAKER) (test code 215 mg/dL 70-110 H = 652) HGB/HCT (H&H) - STAT [id number] 11:53:00 Test Item Value Reference Range Interpretation Comments HEMOGLOBIN (BEAKER) (test code = 11.3 GM/DL 13.0-16.8 L 410) HEMATOCRIT (BEAKER) (test code = 33.0 % 40.0-50.0 L 411) BLOOD GAS, [id number] 10:53:00 Test Item Value Reference Range Interpretation Comments PH ARTERIAL (BEAKER) (test code = 7.42 7.35-7.45 383) PCO2 ARTERIAL (BEAKER) (test code 39 mm Hg 35-45 = 384) PO2 ARTERIAL (BEAKER) (test code 440 mm Hg 80-90 H = 385) O2 SATURATION ARTERIAL (BEAKER) 99.8 % 96.0-97.0 H (test code = 386) HCO3 ARTERIAL (BEAKER) (test code 25 mmol/L 21-29 = 388) BASE EXCESS ARTERIAL (BEAKER) -0.3 mmol/L -2.0-3.0 (test code = 387) PATIENT TEMPERATURE (BEAKER) 35.9 (test code = 1818) FIO2 (BEAKER) (test code = 1819) 98.0 GLUCOSE-STAT [id number] 10:53:00 Test Item Value Reference Range Interpretation Comments GLUCOSE RANDOM (BEAKER) (test code 174 mg/dL 70-110 H = 652) CALCIUM, [id number] 10:47:00 Test Item Value Reference Range Interpretation Comments CALCIUM IONIZED (BEAKER) (test 1.13 mmol/L 1.12-1.27 code = 698) PH, BLOOD (BEAKER) (test code = 7.40 1810) SODIUM NA-STAT [id number] 10:46:00 Test Item Value Reference Range Interpretation Comments SODIUM (BEAKER) (test code = 381) 135 meq/L 136-145 L POTASSIUM-STAT [id number] 10:46:00 Test Item Value Reference Range Interpretation Comments POTASSIUM (BEAKER) (test code = 4.3 meq/L 3.6-5.5 379) HGB/HCT (H&H) - STAT [id number] 10:46:00 Test Item Value Reference Range Interpretation Comments HEMOGLOBIN (BEAKER) (test code = 14.2 GM/DL 13.0-16.8 410) HEMATOCRIT (BEAKER) (test code = 42.0 % 40.0-50.0 411) Carotid doppler [id number] 10:41:35Ejection FractionSLE ECHO HEARTLAB MKCKESSON CPACSRight Impression1. There is <50% diameter reduction (approximately 40% by 2-D measurement)in the internal carotid artery with a peak velocity of 66.3/24.0 cm/sec andheterogeneous plaque.2. There is non-occluding plaque in the external carotid artery.3. There is non-occluding plaque in the common carotid artery.4. The vertebral artery flow is antegrade and normal.5. The subclavian artery is within normal limits where visualized.Left Impression1. There is <50% diameter reduction (approximately 34% by 2-D measurement)in the internal carotid artery with a peak velocity of 73.3/22.3 cm/sec andheterogeneous plaque.2. There is non-occluding plaque in the external carotid artery.3. There is non-occluding plaque in the common carotid artery.4. The ve rtebral artery flow is antegrade and normal.5. The subclavian artery is within normal limits where visualized. Conclusions Summary Carotid duplex scanning and color flow imaging were performed bilaterally. The arteries were adequately visualized. The bilateral internal carotid arteries had <50% hemodynamically insignificant stenosis (approximately 40% by 2-D measurement on the right, approximately 34% by 2-D measurement on the left) with heterogeneous plaque. The vertebral artery flow was antegrade and normal bilaterally. The subclavian arteries were patent with normal flow bilaterally where visualized. Signature Velocities are measured in cm/s ; Diameters are measured in cm Carotid Right Measurements+ +----+----+-----+ + +---- -------+!Location !PSV !EDV !Angle!%Stenosis 2D!%Stenosis Doppler!Tortuosity !+ +-- --+----+-----+ + + +!Prox CCA !66.8!17 !60 ! ! ! !+ +----+----+-----+ + +----- ------+!Dist CCA !77.4!21.7!60 ! ! ! !+ +- ---+----+-----+ + + +!Prox ICA !66.3!24 !60 !40% !<50% ! !+ +----+----+-----+ + +- +!Dist ICA !84.4!35.2!60 ! ! ! !+ --+----+----+-----+ + + +!Prox ECA !103 !8.79!60 ! ! ! !+ +----+----+-----+ + + +!Vertebral !33.4!13.4!60 ! ! ! !+ ---+----+----+-----+ + + +!Prox Subclavian!102 ! !60 ! ! ! !+ +----+----+-----+ + + + - There is antegrade vertebral flow noted on the right side. - Additional Measurements:ICAPSV/CCAPSV 1.09.ICAEDV/CCAEDV 2.07. Carotid Left Measurements+ +----+----+-----+ + + +!Location !PSV !EDV !Angle!%Stenosis 2D!%Stenosis Doppler!Tortuosity !+ +----+----+-----+ + + +!Pr ox CCA !115 !25.8!60 ! ! ! !+ +----+----+----- + + + +!Dist CCA !88.5!21.1!60 ! ! ! !+ +----+----+-----+ + + +!Pr oxICA !73.3!22.3!60 !34% !<50% ! !+ +----+----+- ----+ + + +!Dist ICA !101 !37.5!60 ! ! ! !+ +----+----+-----+ + + +!P ayden ECA !88.5!8.79!60 ! ! ! !+ +----+----+ -----+ + + +!Vertebral !52.8!19.3!60 ! ! ! !+ +----+----+-----+ + + +! Prox Subclavian!111 ! !60 ! ! ! !+ +----+----+-----+ + + + - There is antegrade vertebral flow noted on the left side. - Additional Measurements:ICAPSV/CCAPSV 1.14.ICAEDV/CCAEDV 1.45. Interface, External Ris In - 12/18/2020 10:41 AM CDTPV LAB - Carotid Duplex Study Demographics Patient Name MIKE NEGRO Date of Study 12/17/2020 WENDY Age 60 Visit Number [id number] Gender Male Accession Number [id number] Date of 1960 Referring Emigdio Martell Room Number 1422 Physician Capital Project Engineer [place] Pinon Interpreting Alexia Mullins, Physician ProcedureType of Study: Cerebral: Carotid, CAROTID DOPPLER, BILATERAL. Indications for Study:Pre OP CABG.Patient Status:ZULY.Study Location :Portable.Technical Quality:Adequate visualization.Risk FactorsHistory of Disease+ +----+--------+!Diagnosis !Date!Comments!+ +--- -+--------+!History/Risk Factors: ! !CAD, DM !+ +----+--------+ImpressionsRight Impression1. There is <50% diameter reduction (approximately 40% by 2-D measurement)in the internal carotid artery with a peak velocity of 66.3/24.0 cm/sec andheterogeneous plaque.2. There is non-occluding plaque in the external carotid artery.3. There is non-occluding plaque in the common carotid artery.4. The vertebral artery flow is antegrade and normal.5. The subclavian artery is within normal limits where visualized.Left Impression1. There is <50% diameter reduction (approximately 34% by 2-D measurement)in the internal carotid artery with a peak velocity of 73.3/22.3 cm/sec andheterogeneous plaque.2. There is non-occluding plaque in the external carotid artery.3. There is non-occluding plaque in the common carotid artery.4. The vertebral artery flow is antegrade and normal.5. The subclavian artery is within normal limits where visualized. Conclusions Summary Carotid duplex scanning and color flow imaging were performed bilaterally. The arteries were adequately visualized. The bilateral internal carotid arteries had <50% hemodynamically insignificant stenosis (approximately 40% by 2-D measurement on the right, approximately 34% by 2-D measurement on the left) with heterogeneous plaque. The vertebral artery flow was antegrade and normal bilaterally. The subclavian arteries were patent with normal flow bilaterally where visualized. Signature Velocities are measured in cm/s ; Diameters are measured in cmCarotid Right Measurements+ +----+----+-----+ +--------- --------+ +!Location !PSV !EDV !Angle!%Stenosis 2D!%Stenosis Doppler!Tortuosity !+--- +----+----+-----+ + + +!Prox CCA !66.8!17 !60 ! ! ! !+ +----+----+-----+ +-------- ---------+ +!Dist CCA !77.4!21.7!60 ! ! ! !+-- +----+----+-----+ + + +!Prox ICA !66.3!24 !60 !40% !<50% ! !+ +----+----+-----+ +---- + +!Dist ICA !84.4!35.2!60 ! ! ! !+ +----+----+-----+ + + +!Pr ox ECA !103 !8.79!60 ! ! ! !+ +----+----+-----+ +--- + +!Vertebral !33.4!13.4!60 ! ! ! !+ +----+----+-----+ + + +!Pr ox Subclavian!102 ! !60 ! ! ! !+ +----+----+-----+ + + + - There is antegrade vertebral flow noted on the right side. - Additional Measurements:ICAPSV/CCAPSV 1.09.ICAEDV/CCAEDV 2.07.Carotid Left Measurements+ +---- +----+-----+ + + +!Location !PSV !EDV !Angle!%Stenosis 2D!%Stenosis Doppler!Tortuosity !+ +----+----+-----+ + +------- ----+!Prox CCA !115 !25.8!60 ! ! ! !+ +--- -+----+-----+ + + +!Dist CCA !88.5!21.1!60 !! ! !+ +----+----+-----+ + +------ -----+!Prox ICA !73.3!22.3!60 !34% !<50% ! !+ +----+----+-----+ + + +!Dist ICA !101 !37.5!60 ! ! ! !+ +----+----+-----+ + +-- ---------+!Prox ECA !88.5!8.79!60 ! ! ! !+ -+----+----+-----+ + + +!Vertebral !52.8!19.3!60 ! ! ! !+ +----+----+-----+ + +- +!Prox Subclavian!111 ! !60 ! ! ! !+ --+----+----+-----+ + + + - There is antegrade vertebral flow noted on the left side. - Additional Measurements:ICAPSV/CCAPSV 1.14.ICAEDV/CCAEDV 1.45.[facility] Hemoglobin [id number] 10:39:00 Test Item Value Reference Range Interpretation Comments Hemoglobin A1C (test code = 4548-4) 8.0 % 4.3-6.1 H Lab Interpretation (test code = Abnormal 63424-9) [facility] [id number] 10:39:00 Test Item Value Reference Range Interpretation Comments HEMOGLOBIN A1C (BEAKER) (test code = 8.0 % 4.3-6.1 H 368) SARS-CoV2/RT-PCR (Asymptomatic ONLY)2020-12-18 09:43:00 Test Item Value Reference Range Interpretation Comments SARS-COV2/RT-PCR Negative Not Detected, (test code = Negative, See 76782-6) external report for linked test SARS-COV-2 [facility] PERFORMING LAB (test code = 20479-2) CITLALY (test code = Negative result for this CITLALY) test determines that SARS-CoV-2 RNA was not present in the specimen above the Limit of Detection (LOD). However, Negative results do not preclude SARS-CoV-2 infection and should not be used as the sole basis for treatment or patient management decisions. Negative results must be combined with clinical observations, patient history, and epidemiological information. A false negative result may occur if a specimen is improperly collected, transported or handled. A false negative result should be considered if patient's recent exposures or clinical presentation indicate that COVID-19 (SARS-CoV-2) is likely and diagnostic tests for other causes of illness are negative. Re-testing should be considered in cases of suspected false negatives. The limit of detection for this assay is 800 copies/mL. This SARS CoV-2 test is a real-time RT-PCR test intended for the qualitative detection of nucleic acid from SARS-CoV-2 in a nasopharyngeal swab specimen collected from individuals suspected of COVID-19 by their healthcare provider. This test has not been Food and Drug Administration (FDA) cleared or approved. This is a modified version of an approved Emergency Use Authorization (EUA) and is in the process of review by the FDA. Once authorized by the FDA, the issued EUA will be effective until the declaration that circumstances exist justifying the authorization of the emergency use of in vitro diagnostic tests for detection and/or diagnosis of COVID-19 is terminated under Section 564(b)(2) of the Act or the EUA is revoked under Section 564(g) of the Act. Fact Sheet for Healthcare Providers:https://www.[employer]/sites/default/f jadon/product/documents/F act_Sheet_HC_Providers_L szc_PIGO-JuT-5.pdf Fact Sheet for Healthcare Patients:https://www.WeOwe/sites/default/fi les/product/documents/Fa ct_Sheet_Patients_Lyra_S ARS-CoV-2.pdf Performing Laboratory:[facility] [place] [address] [facility])2020-12-18 09:43:00 Test Item Value Reference Range Interpretation Comments SARS-COV2/RT-PCR (test Negative Not Detected, Negative, code = 5551010) See external report for linked test SARS-COV-2 PERFORMING LAB [facility] (test code = 8466686) Negative result for this test determines that SARS-CoV-2 RNA was not present in the specimen above the Limit of Detection (LOD). However, Negative results do not preclude SARS-CoV-2 infection and should not be used as the sole basis for treatment or patient management decisions. Negative results mustbe combined with clinical observations, patient history, and epidemiological information. A false negative result may occur if a specimen is improperly collected, transported or handled. A false negative result should be considered if patient's recent exposures or clinical presentation indicate that COVID-19 (SARS-CoV-2) is likely and diagnostic tests for other causes of illness are negative. Re-testing should be considered in cases of suspected false negatives.The limit of detection for this assay is 800 copies/mL.This SARS CoV-2 test is a real-time RT-PCR test intended for the qualitative detection of nucleic acid from SARS-CoV-2 in a nasopharyngeal swab specimen collected from individuals susp ected of COVID-19 by their healthcare provider.This test has not been Food and Drug Administration (FDA) cleared or approved. This is a modified version of an approved Emergency Use Authorization (EUA) and is in the process of review by the FDA. Once authorized by the FDA, the issued EUA will be effective until the declaration that circumstances exist justifying the authorization of the emergency use of in vitro diagnostic tests for detection and/or diagnosis of COVID-19 is terminated under Section 564(b)(2) of the Act or the EUA is revoked under Section 564(g) of the Act.Fact Sheet for Healthcare Providers:https://www.[employer]XA.[employer]/sites/default/files/product/documents/Fact_Shee p_PQ_Pilwuvhka_Pzgg_RGSD-CrA-1.pdfFact Sheet for Healthcare Patients:https://www.[employer]XA.[employer]/sites/default/files/product/ documents/Spxx_Argtw_Kwqvhlbz_Edor_ETGY-MbH-5.pdfPerforming Laboratory:[facility], [place] [address]M Echo W/Doppler(CW/PW/Color)2020-12-18 07:25:03Ejection FractionSLEH ECHO HEARTLAB MKCKESSON CPACSInterface, External Ris In - 12/18/2020 7:25 AM CDTTransthoracic Echocardiography Report (TTE) Demographics Patient Name MIKE NEGRO Date of Study 12/17/2020 WENDY Gender Male Visit Number [id number] Race Unknown Room Number 1422 Number Date of 1960 Referring Physician Kendal Sorenson Age 60 year(s) Capital Project Engineer NATY Waddell Interpreting Braulio Lopez, Physician Fellow Fabián Poole MD Procedure Type of Study TTE procedure:2DECHO W DOPPLER(CW/PW/COLOR) (STAT) Indications:Acute Chest Pain/ Suspected CAD.Clinical HistoryHLD HTN DMHGB 14.6HCT44/5 %Contrast Medium: Definity. Amount - 6 mlHeight: 72 inches Weight: 96.16 kg (212 lbs) BSA: 2.18m^2 BMI: 28.75 kg/m^2HR: 64 bpm BP: 128/78 mmHg Summary The left ventricle is chamber size (by PSLAXdimension) is normal (male - LVIDd 4.2-5.8cm) . All of the LV segments contract normally . LVEF by Rogers's method of disk assessment is normal (>60%) . Grade 1 diastolic dysfunction (impaired relaxation and low- normal LA pressure). There is mild aortic regurgitation. There is mild aortic stenosis. Estimated peak systolic PA pressure is cannot be determined due to inadequate TR velocity signal. Signature Electronically signedby Braulio Lopez MD(Interpreting physician) on 12/18/2020 07:24 AM Findings Rhythm/BP Irregular rhythm during the exam. Left Ventricle The left ventricle is chamber size (by PSLAX dimension) is normal (male - LVIDd 4.2-5.8cm) . No evidence of LV hypertrophy. All of the LV segments contract normally . LVEF by Rogers's method of disk assessment is normal (>60%) . Grade 1 diastolic dysfunction (impaired relaxation and low-normal LA pressure). Left Atrium LA size is normal . Right Ventricle The right ventricular chamber size and systolic function are within normal limits. Right Atrium RA size is normal. Atrial Septum Normal interatrial septum by available views. Aortic Valve Mild AoV cusp thickening. Mild AoV cusp calcification. There is mild aortic regurgitation. There is mild aortic stenosis. Mitral Valve Normal MV structure and function by available views and Doppler. Tricuspid Valve TV structure is normal. No evidence of tricuspidregurgitation. Estimated peak systolic PA pressure is cannot be determined due to inadequate TR velocity signal . Pulmonic Valve Normal PV structure and function. Aorta Aortic root size (SInus of Valsalva diameter) is normal . Pericardium An echo lucent space is noted consistent with prominent pericardial fat pad. IVC/SVC/PA/PV/Pleural The estimated RA pressure by IVC dynamics 0-5mmHg . Chambers/Structures Left Atrium LA Volume: 29.19 ml LA Area: 13.01 cm^2 LA Vol. Index: 13 ml/m^2 Left Ventricle LVIDd: 4.36 cm LVEDV:99.36 ml LVIDs: 2.95 cm LV Septum Diastolic: 1.07 cm LV PW Diastolic: 1.09 cm LV Length: 9.57 cm LVEDV Rogers's:101.55 ml LV FS: 32.3 % LVESV Rogers's:38.11 ml LVEF Rogers's: 62.5 % LVEDVI: 47 ml/m^2 LVESVI: 17 ml/m^2 LVOT Diameter: 2.1 cm Right Ventricle RVOT VTI: 10.53 cm TAPSE: 2.01 cm Aorta Ao Root S of Donna.: 2.86 cm Ascending Aorta: 3.12 cm Aortic Arch: 3.11 cm Doppler/Quantitative Measurements Mitral Valve MV Peak E- Wave: 0.55 m/s MV Peak A-Wave: 0.83 m/s P1/2t: 85 msec E/A Ratio: 0.66 Peak Gradient: 1.19 mmHg Deceleration Time: 293.2 msec MV Area (PHT): 2.59 cm^2 MV Dhaval. Peak: Tissue Doppler E' Septal Velocity: 0.07 m/s A' Septal Velocity: 0.11 m/s E' Lateral Velocity: 0.11 m/s A' Lateral Velocity: 0.09 m/s Aortic Valve Peak Velocity: 2.06 m/s Mean Velocity: 1.48 m/s Peak Gradient: 16.94 mmHg Mean Gradient: 9.76 mmHg AV Area (continuity): 1.64 cm^2 AV VTI: 41.71 cm AR P1/2t: 643.3 msec Deceleration Time: 2218.2 msec AV DVI: 0.47 LVOT Peak Velocity: 1.07 m/s Peak Gradient: 4.62 mmHg Mean Velocity: 0.65 m/s Mean Gradient: 2.01 mmHg LVOT Diameter: 2.1 cm LVOT VTI: 19.75 cm LVOT Area: 3.46 cm^2 LVOT SV:68.37 ml LVOT CO: 4.38 l/min LVOT CI: 2.01 l/min/m^2CT[facility] W/PLT COUNT & AUTO [id number] 07:04:00 Test Item Value Reference Range Interpretation Comments WHITE BLOOD CELL COUNT (BEAKER) 12.0 K/ L 3.5-10.5 H (test code = 775) RED BLOOD CELL COUNT (BEAKER) 4.73 M/ L 4.63-6.08 (test code = 761) HEMOGLOBIN (BEAKER) (test code = 14.8 GM/DL 13.7-17.5 410) HEMATOCRIT (BEAKER) (test code = 44.0 % 40.1-51.0 411) MEAN CORPUSCULAR VOLUME (BEAKER) 93.0 fL 79.0-92.2 H (test code = 753) MEAN CORPUSCULAR HEMOGLOBIN 31.3 pg 25.7-32.2 (BEAKER) (test code = 751) MEAN CORPUSCULAR HEMOGLOBIN CONC 33.6 GM/DL 32.3-36.5 (BEAKER) (test code = 752) RED CELL DISTRIBUTION WIDTH 12.0 % 11.6-14.4 (BEAKER) (test code = 412) PLATELET COUNT (BEAKER) (test 254 K/CU MM 150-450 code = 756) MEAN PLATELET VOLUME (BEAKER) 10.5 fL 9.4-12.4 (test code = 754) NUCLEATED RED BLOOD CELLS 0 /100 WBC 0-0 (BEAKER) (test code = 413) NEUTROPHILS RELATIVE PERCENT 71 % (BEAKER) (test code = 429) LYMPHOCYTES RELATIVE PERCENT 20 % (BEAKER) (test code = 430) MONOCYTES RELATIVE PERCENT 6 % (BEAKER) (test code = 431) EOSINOPHILS RELATIVE PERCENT 1 % (BEAKER) (test code = 432) BASOPHILS RELATIVE PERCENT 1 % (BEAKER) (test code = 437) NEUTROPHILS ABSOLUTE COUNT 8.52 K/ L 1.78-5.38 H (BEAKER) (test code = 670) LYMPHOCYTES ABSOLUTE COUNT 2.41 K/ L 1.32-3.57 (BEAKER) (test code = 414) MONOCYTES ABSOLUTE COUNT (BEAKER) 0.72 K/ L 0.30-0.82 (test code = 415) EOSINOPHILS ABSOLUTE COUNT 0.14 K/ L 0.04-0.54 (BEAKER) (test code = 416) BASOPHILS ABSOLUTE COUNT (BEAKER) 0.06 K/ L 0.01-0.08 (test code = 417) IMMATURE GRANULOCYTES-RELATIVE 1 % 0-1 PERCENT (BEAKER) (test code = 2801) Lipid [id number] 06:59:00 Test Item Value Reference Range Interpretation Comments Triglycerides (test 200 mg/dL code = 2571-8) Cholesterol (test code 171 mg/dL = 2093-3) HDL (test code = 49 mg/dL 5-9) LDL Calculated (test 82 mg/dL code = 13171-1) CITLALY (test code = CITLALY) Triglyceride Reference Range: Low Risk <150 Borderline 150-199 High Risk 200-499 Very High Risk >=500 Cholesterol Reference Range: Low Risk <200 Borderline 200-239 High Risk >240 HDL Cholesterol Reference Range: Low Risk >=60 High Risk <40 LDL Cholesterol Reference Range: Optimal <100 Near Optimal 100-129 Borderline 130-159 High 160-189 Very High >=190 Business Solutions Consultant GUCCI - ROSSY [facility] [place] [id number] 06:59:00 Test Item Value Reference Range Interpretation Comments Protein, Total (test 7.2 See_Comment [Autom ated code = 2885-2) message] The system which generated this result transmit robert reference range : 6.0 - 8.3 gm/dL . The reference range was not u sed to interpret th is result as normal/abnormal . Albumin (test code = 4.0 g/dL 3.5-5 59524-4) Total Bilirubin (test 0.9 mg/dL 0.2-1.2 code = 1975-2) Bilirubin, Direct 0.3 mg/dL 0.1-0.5 (test code = 1968-7) Alkaline Phosphatase 68 U/L 40-150 (test code = 6768-6) AST (test code = 16 U/L 5-34 1920-8) ALT (test code = 25 U/L 6-55 1742-6) CITLALY (test code = CITLALY) Business Solutions Consultant ID - ROSSY M Lab Interpretation Normal (test code = 37537-5) [facility] METABOLIC [id number] 06:59:00 Test Item Value Reference Range Interpretation Comments SODIUM (BEAKER) 137 meq/L 136-145 (test code = 381) POTASSIUM (BEAKER) 4.2 meq/L 3.5-5.1 (test code = 379) CHLORIDE (BEAKER) 101 meq/L 98-107 (test code = 382) CO2 (BEAKER) (test 23 meq/L 22-29 code = 355) BLOOD UREA NITROGEN 11 mg/dL 7-21 (BEAKER) (test code = 354) CREATININE (BEAKER) 0.77 mg/dL 0.57-1.25 (test code = 358) GLUCOSE RANDOM 217 mg/dL 70-105 H (BEAKER) (test code = 652) CALCIUM (BEAKER) 9.5 mg/dL 8.4-10.2 (test code = 697) EGFR (BEAKER) (test 102 mL/min/1.73 ESTIM ATED GFR IS code = 1092) sq m NOT ACCURATE CREATININE CLEARANCE IN PREDICTING GLOMERULAR FILTRATION RATE . ESTIMATED GFR I S NOT APPLICABLE FOR DIALYSIS PATIEN TS. Business Solutions Consultant ID Kori BLAIR MLIPID [id number] 06:59:00 Test Item Value Reference Range Interpretation Comments TRIGLYCERIDES (BEAKER) (test code = 200 mg/dL 540) CHOLESTEROL (BEAKER) (test code = 171 mg/dL 631) HDL CHOLESTEROL (BEAKER) (test code 49 mg/dL = 976) LDL CHOLESTEROL CALCULATED (BEAKER) 82 mg/dL (test code = 633) Triglyceride Reference Range: Low Risk <150 Borderline 150-199 High Risk 200-499 Very High Risk >=500Cholesterol Reference Range: Low Risk <200 Borderline 200-239 High Risk >240HDL Cholesterol Reference Range: Low Risk >=60 High Risk <40LDL Cholesterol Reference Range: Optimal <100 Near Optimal 100-129 Borderline 130-159 High 160-189 Very High >=190 Business Solutions Consultant ID - ROSSY EPATIC FUNCTION [id number] 06:59:00 Test Item Value Reference Range Interpretation Comments TOTAL PROTEIN (BEAKER) (test code = 7.2 gm/dL 6.0-8.3 770) ALBUMIN (BEAKER) (test code = 1145) 4.0 g/dL 3.5-5.0 BILIRUBIN TOTAL (BEAKER) (test code 0.9 mg/dL 0.2-1.2 = 377) BILIRUBIN DIRECT (BEAKER) (test 0.3 mg/dL 0.1-0.5 code = 706) ALKALINE PHOSPHATASE (BEAKER) (test 68 U/L 40-150 code = 346) AST (SGOT) (BEAKER) (test code = 16 U/L 5-34 353) ALT (SGPT) (BEAKER) (test code = 25 U/L 6-55 347) Business Solutions Consultant ID Kori BLAIR [id number] 06:38:00 Test Item Value Reference Range Interpretation Comments PARTIAL THROMBOPLASTIN TIME 88.1 seconds 22.5-36.0 H (BEAKER) (test code = 760) ABORH, [id number] 00:46:00 Test Item Value Reference Range Interpretation Comments ABO Grouping (test code = 2588) A Rh Factor (test code = 2589) [facility] [id number] 00:04:00 Test Item Value Reference Range Interpretation Comments ABO/RH AUTOMATED (BEAKER) (test A POSITIVE code = 2260) Ab Scrn (test code = 890-4) NEGATIVE [id number] 23:31:00 Test Item Value Reference Range Interpretation Comments PARTIAL THROMBOPLASTIN TIME 41.1 seconds 22.5-36.0 H (BEAKER) (test code = 760) POCT-GLUCOSE [id number] 21:57:00 Test Item Value Reference Range Interpretation Comments POC-GLUCOSE METER 210 mg/dL 70-110 H : TESTED A T [facility] 6720 (BEAKER) (test code = [place], 1538) [id number]: Business Solutions Consultant/Techni anoop ID = [id number] for Sandee Trevino, CHEST, 1 VIEW, NON [id number] 19:16:00Reason for exam:->pre-operativeShould this be performed at the bedside?->Yes [facility] 1960 Sex: MFINAL REPORT TECHNIQUE: Frontal view of the chest. INDICATION: pre- operative COMPARISON:None DISCUSSION:Limited evaluation due to portable technique. Lines and hardware: Overlying EKG leads are noted.Heart and mediastinum: Within normal limits.Lungs and pleura: Lungs are hypoexpanded with linear opacities at the lung bases. Negative for large effusion or pneumothorax. Soft tissues and bones: No acute abnormality. IMPRESSION:Hypoexpanded lungs with linear opacities atthe lung bases which probably related to atelectasis. Developing pneumonitis is difficult to excluderadiographically. Signed: Migue Sorenson MDReport Verified Date/Time: 12/17/2020 19:16:34 Reading Location: [address] Transitional Reading Room POCT-GLUCOSE [id number] 17:57:00 Test Item Value Reference Range Interpretation Comments POC-GLUCOSE METER 104 mg/dL 70-110 : TESTED A T [facility] 67[address] (BEAKER) (test code = [place], 1538) [id number]: Business Solutions Consultant/Techni anoop ID = [id number] for Karrie Hammonds BASIC METABOLIC [id number] 17:30:00 Test Item Value Reference Range Interpretation Comments SODIUM (BEAKER) 139 meq/L 136-145 (test code = 381) POTASSIUM (BEAKER) 4.2 meq/L 3.5-5.1 Specimen slightly (test code = 379) hemolyzed CHLORIDE (BEAKER) 103 meq/L 98-107 (test code = 382) CO2 (BEAKER) (test 25 meq/L 22-29 code = 355) BLOOD UREA NITROGEN 15 mg/dL 7-21 (BEAKER) (test code = 354) CREATININE (BEAKER) 0.72 mg/dL 0.57-1.25 Specimen slightly (test code = 358) hemolyzed GLUCOSE RANDOM 106 mg/dL 70-105 H (BEAKER) (test code = 652) CALCIUM (BEAKER) 9.3 mg/dL 8.4-10.2 (test code = 697) EGFR (BEAKER) (test 111 mL/min/1.73 ESTIM ATED GFR IS code = 1092) sq m NOT ACCURATE CREATININE CLEARANCE IN PREDICTING GLOMERULAR FILTRATION RATE . ESTIMATED GFR I S NOT APPLICABLE FOR DIALYSIS PATIEN TS. Business Solutions Consultant ID - [id number] 17:25:00 Test Item Value Reference Range Interpretation Comments PARTIAL THROMBOPLASTIN TIME 29.3 seconds 22.5-36.0 (BEAKER) (test code = 760) Prior to initiating heparinPT/[id number] 17:25:00 Test Item Value Reference Range Interpretation Comments PROTIME (BEAKER) (test 12.9 seconds 11.9-14.2 code = 759) INR (BEAKER) (test 1.00 See_Comment [Automat ed code = 370) message] The sy stem which generated this result transmitted reference range : <=5.90. The reference range was not used to interpret this result as normal/abnormal . PARTIAL THROMBOPLASTIN 29.3 seconds 22.5-36.0 TIME (BEAKER) (test code = 760) Effective 02/03/2019: PT Reference Range ChangeNew: 11.9-14.2 Previous: 11.7- 14.7RECOMMENDED COUMADIN/WARFARIN INR THERAPY RANGESSTANDARD DOSE: 2.0-3.0 Includes: PROPHYLAXIS for venous thrombosis, systemic embolization; TREATMENT for venous thrombosis and/or pulmonary embolus.HIGH RISK: Target INR is2.5-3.5 for patients wiht mechanical heart valves.Prior to initiating heparinCBC W/PLT COUNT & AUTO [id number] 17:06:00 Test Item Value Reference Range Interpretation Comments WHITE BLOOD CELL COUNT (BEAKER) 6.8 K/ L 3.5-10.5 (test code = 775) RED BLOOD CELL COUNT (BEAKER) 4.80 M/ L 4.63-6.08 (test code = 761) HEMOGLOBIN (BEAKER) (test code = 14.6 GM/DL 13.7-17.5 410) HEMATOCRIT (BEAKER) (test code = 44.5 % 40.1-51.0 411) MEAN CORPUSCULAR VOLUME (BEAKER) 92.7 fL 79.0-92.2 H (test code = 753) MEAN CORPUSCULAR HEMOGLOBIN 30.4 pg 25.7-32.2 (BEAKER) (test code = 751) MEAN CORPUSCULAR HEMOGLOBIN CONC 32.8 GM/DL 32.3-36.5 (BEAKER) (test code = 752) RED CELL DISTRIBUTION WIDTH 12.0 % 11.6-14.4 (BEAKER) (test code = 412) PLATELET COUNT (BEAKER) (test 254 K/CU MM 150-450 code = 756) MEAN PLATELET VOLUME (BEAKER) 9.6 fL 9.4-12.4 (test code = 754) NUCLEATED RED BLOOD CELLS 0 /100 WBC 0-0 (BEAKER) (test code = 413) NEUTROPHILS RELATIVE PERCENT 57 % (BEAKER) (test code = 429) LYMPHOCYTES RELATIVE PERCENT 31 % (BEAKER) (test code = 430) MONOCYTES RELATIVE PERCENT 9 % (BEAKER) (test code = 431) EOSINOPHILS RELATIVE PERCENT 2 % (BEAKER) (test code = 432) BASOPHILS RELATIVE PERCENT 1 % (BEAKER) (test code = 437) NEUTROPHILS ABSOLUTE COUNT 3.88 K/ L 1.78-5.38 (BEAKER) (test code = 670) LYMPHOCYTES ABSOLUTE COUNT 2.08 K/ L 1.32-3.57 (BEAKER) (test code = 414) MONOCYTES ABSOLUTE COUNT (BEAKER) 0.58 K/ L 0.30-0.82 (test code = 415) EOSINOPHILS ABSOLUTE COUNT 0.12 K/ L 0.04-0.54 (BEAKER) (test code = 416) BASOPHILS ABSOLUTE COUNT (BEAKER) 0.06 K/ L 0.01-0.08 (test code = 417) IMMATURE GRANULOCYTES-RELATIVE 1 % 0-1 PERCENT (BEAKER) (test code = 2806)
[2021-01-05 23:59] LABS: Absolute Lymphocytes (CBC) 1.5 K/uL (0.7-4.9); Basophils % 0.3 % (0-1.3); Hematocrit 38.4 % (39.6-49.0); Lymphocytes % 13.2 % (15.3-44.8); MPV 7.6 fL (7.6-11.3); RBC Red Blood Cell Count 4.12 M/uL (4.33-5.43)
[2021-01-06 00:07] LABS: Protime INR 1.05
[2021-01-06] MEDS ORDERED: METOPROLOL TARTRATE 5 MG/5 ML INJ IV ONE (00:10)
[2021-01-06 00:19] LABS: ALT/SGPT 38 U/L (12-78); AST/SGOT 17 U/L (15-37); Albumin 3.7 g/dL (3.4-5.0); Alkaline Phosphatase 138 U/L (45-117); BUN Blood Urea Nitrogen 15 mg/dL (7-18); Bicarbonate 26 mmol/L (21-32); Bilirubin Direct < 0.1 mg/dL (0-0.2); Bilirubin Total 0.4 mg/dL (0.2-1.0); Glucose Level 212 mg/dL (74-106); Magnesium 2.1 mg/dL (1.8-2.4); NT PRO-BNP 136 pg/mL (<125); Potassium 3.8 mmol/L (3.5-5.1); Protein, Total 7.7 g/dL (6.4-8.2); Sodium Level 139 mmol/L (136-145); Troponin (Emerg Dept Use Only) 0.06 ng/mL (0.0-0.045)
[2021-01-06] MEDS ORDERED: MORPHINE 2 MG/ML SYR ONE (00:40)
[2021-01-06] MEDS ORDERED: NITROGLYCERIN 1 GM PKT TD ONE (01:11)
--- NOTE | 2021-01-06 01:54 | EDPHYS ---
Physician Documentation [facility] Name: Vargas Oquendo Age: 60 yrs Sex: Male : 1960 Arrival Date: 01/05/2021 Time: 23:25 Bed 4 Private MD: ED Physician Murphy Lara HPI: 01/06 00:29 This 60 yrs old Male presents to ER via Wheelchair with complaints of Chest mh7 Pain. 00:29 The patient presents with a history of heart racing. Context: The symptoms occur at mh7 rest. Onset: The symptoms/episode began/occurred today. Duration: The patient or guardian reports a single episode, that is still ongoing. Modifying factors: The symptoms are aggravated by nothing. The symptoms are alleviated by nothing. Associated signs and symptoms: Pertinent positives: chest pain, SOB, Pertinent negatives: cough, fever, lightheadedness, syncope, near-syncope, unusual stressors, vertigo, vomiting. Severity of symptoms: At their worst the symptoms were moderate today, in the emergency department the symptoms have improved mildly. Historical: - Allergies: 01/05 23:52 No Known Allergies; iw - Home Meds: 23:52 gabapentin 100 mg oral cap 1 caps 3 times per day [Active]; furosemide 20 mg Oral tab 1 iw tab once daily [Active]; metoprolol succinate 100 mg oral Tb24 1 tab once daily [Active]; tramadol 50 mg Oral tab 1 tab every 6 hours [Active]; levothyroxine 75 mcg tab 1 tab once daily [Active]; atorvastatin 40 mg oral tab 1 tab once daily [Active]; aspirin 81 mg Oral TbEC 1 tab once daily [Active]; glipizide 10 mg Oral tab 1 tab once daily [Active]; Eliquis 5 mg oral tab 1 tab 2 times per day [Active]; - PMHx: 23:52 Diabetes - NIDDM; High Cholesterol; Hypertension; Hypothyroidism; iw - PSHx: 23:52 CABG; iw - Immunization history:: Adult Immunizations up to date. - Social history:: Smoking status: Patient denies any tobacco usage or history of. ROS: 01/06 00:29 Constitutional: Negative for fever, chills, and weight loss, Eyes: Negative for injury, mh7 pain, redness, and discharge, ENT: Negative for injury, pain, and discharge, Neck: Negative for injury, pain, and swelling, Abdomen/GI: Negative for abdominal pain, nausea, vomiting, diarrhea, and constipation, Back: Negative for injury and pain, : Negative for injury, bleeding, discharge, and swelling, MS/Extremity: Negative for injury and deformity, Skin: Negative for injury, rash, and discoloration, Neuro: Negative for headache, weakness, numbness, tingling, and seizure, Psych: Negative for depression, anxiety, suicide ideation, homicidal ideation, and hallucinations, Allergy/Immunology: Negative for hives, rash, and allergies, Endocrine: Negative for neck swelling, polydipsia, polyuria, polyphagia, and marked weight changes, Hematologic/Lymphatic: Negative for swollen nodes, abnormal bleeding, and unusual bruising. Exam: 00:29 Head/Face: Normocephalic, atraumatic. Eyes: Pupils equal round and reactive to light, mh7 extra-ocular motions intact. Lids and lashes normal. Conjunctiva and sclera are non-icteric and not injected. Cornea within normal limits. Periorbital areas with no swelling, redness, or edema. Neck: Trachea midline, no thyromegaly or masses palpated, and no cervical lymphadenopathy. Supple, full range of motion without nuchal rigidity, or vertebral point tenderness. No Meningismus. 00:29 Respiratory: Lungs have equal breath sounds bilaterally, clear to auscultation and percussion. No rales, rhonchi or wheezes noted. No increased work of breathing, no retractions or nasal flaring. Abdomen/GI: Soft, non-tender, with normal bowel sounds. No distension or tympany. No guarding or rebound. No evidence of tenderness throughout. Back: No spinal tenderness. No costovertebral tenderness. Full range of motion. Skin: Warm, dry with normal turgor. Normal color with no rashes, no lesions, and no evidence of cellulitis. MS/ Extremity: Pulses equal, no cyanosis. Neurovascular intact. Full, normal range of motion. Neuro: Awake and alert, GCS 15, oriented to person, place, time, and situation. Cranial nerves II-XII grossly intact. Motor strength 5/5 in all extremities. Sensory grossly intact. Cerebellar exam normal. Normal gait. Psych: Awake, alert, with orientation to person, place and time. Behavior, mood, and affect are within normal limits. 00:29 Constitutional: The patient appears in no acute distress, alert, awake, anxious. 00:29 Chest/axilla: Inspection: healing midsternal scar without signs of infection, Palpation: is normal, Axilla: are normal, Lymph nodes: lymphadenopathy is not appreciated. 00:29 Cardiovascular: Rate: tachycardic, Rhythm: regular, Pulses: no pulse deficits are appreciated, Heart sounds: normal, normal S1and S2, Edema: is not appreciated, JVD: is not appreciated. Vital Signs: 01/05 23:48 BP 145 / 122; Pulse 143; Resp 18 S; Pulse Ox 95% on R/A; iw 23:53 BP 133 / 99; Pulse 140; iw 01/06 00:00 BP 128 / 87; Pulse 141; Resp 27; Pulse Ox 97% on R/A; rv 00:10 BP 114 / 99; Pulse 140; Resp 21; Pulse Ox 95% on R/A; rv 00:20 BP 129 / 96; Pulse 141; Resp 20; Pulse Ox 96% on R/A; rv 00:30 BP 129 / 93; Pulse 134; Resp 18; Pulse Ox 96% on R/A; rv 00:50 BP 110 / 91; Pulse 143; Resp 20; Pulse Ox 98% on R/A; rv 01:18 BP 145 / 91; Pulse 76 MON; Resp 18; Pulse Ox 99% on R/A; rv 01:48 BP 127 / 81; Pulse 85; Resp 15; Pulse Ox 98% on R/A; rv 02:26 BP 125 / 86; Pulse 80; Resp 16; Pulse Ox 98% ; rr5 03:10 BP 113 / 74; Pulse 86; Resp 16; Temp 98; Pulse Ox 97% ; rr5 01:18 Sinus Rhythm rv MDM: 01:52 Differential diagnosis: arrythmia, dehydration, stress disorder, Myocardial Infarction. mh7 Data reviewed: vital signs, nurses notes, EMS record, old medical records, lab test result(s), cardiac enzymes, CBC, electrolytes, EKG, radiologic studies, CT scan, plain films. Data interpreted: Pulse oximetry: on room air is 98 %. Interpretation: normal. Counseling: I had a detailed discussion with the patient and/or guardian regarding: the historical points, exam findings, and any diagnostic results supporting the discharge/admit diagnosis, lab results, radiology results, the need for further work-up and treatment in the hospital. Response to treatment: the patient's symptoms have markedly improved after treatment. 01:54 Patient medically screened. 7 01/05 23:40 Order name: Basic Metabolic Panel iw 01/05 23:40 Order name: CBC with Diff 01/05 23:40 Order name: LFT's; Complete Time: 00:25 iw 01/05 23:40 Order name: Magnesium; Complete Time: 00:25 iw 01/05 23:40 Order name: NT PRO-BNP; Complete Time: 00:25 iw 01/05 23:40 Order name: PT-INR; Complete Time: 00:25 iw 01/05 23:40 Order name: Troponin (emerg Dept Use Only); Complete Time: 00:25 iw 01/05 23:41 Order name: Basic Metabolic Panel; Complete Time: 00:25 EDMS 01/05 23:41 Order name: CBC with Automated Diff; Complete Time: 00:25 EDMS 01/05 23:59 Order name: Glucose, Ancillary Testing; Complete Time: 00:25 EDMS 01/06 00:00 Order name: COVID-19 : Document "Date of Symptom Onset" if Symptomatic. 01/06 00:22 Order name: Thyroid Stimulating Hormone; Complete Time: 00:54 EDMS 01/06 01:23 Order name: SARS-COV-2 RT PCR; Complete Time: 01:51 EDMS 01/05 23:40 Order name: XRAY Chest (1 view) 01/05 23:40 Order name: EKG; Complete Time: 23:41 01/05 23:40 Order name: Cardiac monitoring; Complete Time: 23:54 01/05 23:40 Order name: EKG - Nurse/Tech; Complete Time: 23:54 iw 01/05 23:40 Order name: IV Saline Lock; Complete Time: 23:57 01/05 23:40 Order name: Labs collected and sent; Complete Time: 23:57 01/05 23:40 Order name: O2 Per Protocol; Complete Time: 23:54 01/05 23:40 Order name: O2 Sat Monitoring; Complete Time: 23:54 iw 01/06 00:26 Order name: CT Chest For PE [facility] Administered Medications: 01/05 23:53 Drug: Metoprolol 5 mg Route: IVP; Site: left antecubital; rv 01/06 00:02 Drug: Metoprolol 5 mg Route: IVP; Site: left antecubital; rv 00:11 Drug: Metoprolol 5 mg Route: IVP; Site: left antecubital; rv 01:00 Follow up: Response: No adverse reaction rr5 00:30 Drug: morphine 2 mg Route: IVP; Site: left antecubital; rv 03:17 Follow up: Response: No adverse reaction; RASS: Alert and Calm (0) rv 01:00 Drug: Nitro-Bid (nitroglycerin) Ointment 2 % 1 inches Route: Transdermal; Site: rv anterior chest wall; Disposition: 01/06/21 01:54 Hospitalization ordered by Venkata Reid for Inpatient Admission. Preliminary diagnosis are Chest pain, unspecified, Palpitations. - Bed requested for Telemetry/MedSurg (Inpatient). - Status is Inpatient Admission. rr5 - Condition is Stable. - Problem is new. - Symptoms have improved. Signatures: Dispatcher [employer] EDDC Ce Hendrickson RN RN iw Henok Griggs, FLIGHT CREW SCHEDULER-C FLIGHT CREW SCHEDULER-Cla1 Carmen Armenta RN RN cg Tank Deluna RN RN rv Wilson Lofton RN RN rr5 Murphy Lara MD MD mh7 Corrections: (The following items were deleted from the chart) 01:41 00:42 THYROID STIMULAT HORMONE+C.LAB.BRZ ordered. [facility] EDDC 02:58 01:54 Hospitalization Ordered by Venkata Reid DO for Inpatient Admission. Preliminary cg diagnosis is Chest pain, unspecified; Palpitations. Bed requested for Telemetry/MedSurg (Inpatient). Status is Inpatient Admission. Condition is Stable. Problem is new. Symptoms have improved. mh7 03:22 02:58 01/06/2021 01:54 Hospitalization Ordered by Venkata Reid DO for Inpatient rr5 Admission. Preliminary diagnosis is Chest pain, unspecified; Palpitations. Bed requested for Telemetry/MedSurg (Inpatient). Status is Inpatient Admission. Condition is Stable. Problem is new. Symptoms have improved. cg
--- NOTE | 2021-01-06 01:54 | ER ---
Nurse's Notes [facility] Name: Vargas Oqunedo Age: 60 yrs Sex: Male : 1960 Arrival Date: 01/05/2021 Time: 23:25 Bed 4 Private MD: Diagnosis: Chest pain, unspecified;Palpitations Presentation: 01/05 23:45 Chief complaint: Patient states: had double bypass at [facility] on 12-18-20, has been iw recovering well, f/u with Baradhi yesterday, tonight started to feel his heart racing, felt tingling and numbness down both his arms, felt discomfort in his chest and SOB. Coronavirus screen: At this time, the client does not indicate any symptoms associated with coronavirus-19. Ebola Screen: Patient negative for fever greater than or equal to 101.5 degrees Fahrenheit, and additional compatible Ebola Virus Disease symptoms Patient denies exposure to infectious person. Patient denies travel to an Ebola-affected area in the 21 days before illness onset. No symptoms or risks identified at this time. Initial Sepsis Screen: Does the patient meet any 2 criteria? No. Patient's initial sepsis screen is negative. Does the patient have a suspected source of infection? No. Patient's initial sepsis screen is negative. Risk Assessment: Do you want to hurt yourself or someone else? Patient reports no desire to harm self or others. Onset of symptoms was January 05, 2021. 23:45 Method Of Arrival: Wheelchair iw 23:45 Acuity: FESTUS 2 iw Triage Assessment: 23:58 General: Appears uncomfortable, Behavior is calm, cooperative. Pain: Complains of pain rv in chest. Neuro: Level of Consciousness is awake, alert, obeys commands, Oriented to person, place, time, situation. Cardiovascular: Patient's skin is warm and dry. Rhythm is atrial flutter 2:1. Respiratory: Airway is patent Respiratory effort is even, unlabored, Breath sounds are clear bilaterally. Derm: Skin is intact. Historical: - Allergies: 23:52 No Known Allergies; iw - Home Meds: 23:52 gabapentin 100 mg oral cap 1 caps 3 times per day [Active]; furosemide 20 mg Oral tab 1 iw tab once daily [Active]; metoprolol succinate 100 mg oral Tb24 1 tab once daily [Active]; tramadol 50 mg Oral tab 1 tab every 6 hours [Active]; levothyroxine 75 mcg tab 1 tab once daily [Active]; atorvastatin 40 mg oral tab 1 tab once daily [Active]; aspirin 81 mg Oral TbEC 1 tab once daily [Active]; glipizide 10 mg Oral tab 1 tab once daily [Active]; Eliquis 5 mg oral tab 1 tab 2 times per day [Active]; - PMHx: 23:52 Diabetes - NIDDM; High Cholesterol; Hypertension; Hypothyroidism; iw - PSHx: 23:52 CABG; iw - Immunization history:: Adult Immunizations up to date. - Social history:: Smoking status: Patient denies any tobacco usage or history of. Screenin:57 Abuse screen: Denies threats or abuse. Denies injuries from another. Nutritional rv screening: No deficits noted. Tuberculosis screening: No symptoms or risk factors identified. Fall Risk None identified. Assessment: 23:59 Pain: Pain radiates to left arm Pain began suddenly. rv 01/06 01:21 Neuro: Level of Consciousness is awake, alert, obeys commands, Oriented to person, rv place, time, situation. Cardiovascular: Rhythm is sinus rhythm Chest pain is denied. 02:15 Reassessment: Patient appears in no apparent distress at this time. Patient is alert, rr5 oriented x 3, equal unlabored respirations, skin warm/dry/pink. hospitalist at bedside. 03:10 Reassessment: Patient appears in no apparent distress at this time. Patient is alert, rr5 oriented x 3, equal unlabored respirations, skin warm/dry/pink. Vital Signs: 01/05 23:48 BP 145 / 122; Pulse 143; Resp 18 S; Pulse Ox 95% on R/A; iw 23:53 BP 133 / 99; Pulse 140; iw 01/06 00:00 BP 128 / 87; Pulse 141; Resp 27; Pulse Ox 97% on R/A; rv 00:10 BP 114 / 99; Pulse 140; Resp 21; Pulse Ox 95% on R/A; rv 00:20 BP 129 / 96; Pulse 141; Resp 20; Pulse Ox 96% on R/A; rv 00:30 BP 129 / 93; Pulse 134; Resp 18; Pulse Ox 96% on R/A; rv 00:50 BP 110 / 91; Pulse 143; Resp 20; Pulse Ox 98% on R/A; rv 01:18 BP 145 / 91; Pulse 76 MON; Resp 18; Pulse Ox 99% on R/A; rv 01:48 BP 127 / 81; Pulse 85; Resp 15; Pulse Ox 98% on R/A; rv 02:26 BP 125 / 86; Pulse 80; Resp 16; Pulse Ox 98% ; rr5 03:10 BP 113 / 74; Pulse 86; Resp 16; Temp 98; Pulse Ox 97% ; rr5 01:18 Sinus Rhythm rv ED Course: 01/05 23:25 Patient arrived in ED. es 23:39 Tank Deluna, RN is Primary Nurse. rv 23:40 Murphy Lara MD is Attending Physician. mh7 23:48 Triage completed. iw 23:50 Inserted saline lock: 20 gauge in left antecubital area, using aseptic technique. Blood rv collected. 23:50 Initial lab(s) drawn, by me, sent to lab. Patient maintains SpO2 saturation greater rv than 95% on room air. 23:57 Patient has correct armband on for positive identification. teletypesetter monitor on. Pulse rv ox on. NIBP on. 23:59 Arm band placed on right wrist. Patient placed in the treatment room, on a stretcher, rv Patient notified of wait time. 01/06 00:13 XRAY Chest (1 view) In Process Unspecified. EDMS 01:15 CT Chest For PE Angio In Process Unspecified. EDMS 01:21 No provider procedures requiring assistance completed. rv 01:53 Venkata Reid DO is Hospitalizing Provider. mh7 03:10 Patient admitted, IV remains in place. intact, No redness/swelling at site. rr5 Administered Medications: 01/05 23:53 Drug: Metoprolol 5 mg Route: IVP; Site: left antecubital; rv 01/06 00:02 Drug: Metoprolol 5 mg Route: IVP; Site: left antecubital; rv 00:11 Drug: Metoprolol 5 mg Route: IVP; Site: left antecubital; rv 01:00 Follow up: Response: No adverse reaction rr5 00:30 Drug: morphine 2 mg Route: IVP; Site: left antecubital; rv 03:17 Follow up: Response: No adverse reaction; RASS: Alert and Calm (0) rv 01:00 Drug: Nitro-Bid (nitroglycerin) Ointment 2 % 1 inches Route: Transdermal; Site: rv anterior chest wall; Outcome: 01:54 Decision to Hospitalize by Provider. Stephanie 03:10 Admitted to Med/surg accompanied by nurse, via stretcher, room 220, with chart, Report rr5 called to nagi 03:10 Instructed on the need for admit. 03:10 Condition: stable rr5 03:22 Patient left the ED. rr5 Signatures: Dispatcher [employer] EDMi Suarez Irene, RN RN iw Tank Deluna RN RN Wilson Jarrett RN RN rr5 Murphy Lara MD MD 7
--- NOTE | 2021-01-06 02:51 | P.HP ---
Certification for Inpatient Patient admitted to: Observation With expected LOS: <2 Midnights Patient will require the following post-hospital care: None Practitioner: I am a practitioner with admitting privileges, knowledge of patient current condition, hospital course, and medical plan of care. Services: Services provided to patient in accordance with Admission requirements found in Title 42 Section 412.3 of the Code of Federal Regulations Patient History Date of Service: 01/06/21 Reason for admission: Atrial flutter, chest pain History of Present Illness: 60-year-old male with history of CAD status post recent CABG, hypertension, hyperlipidemia, diabetes mellitus type 2, hypothyroidism, atrial fibrillation on chronic anticoagulation therapy presents emergency department for palpitations and chest pain. Patient reports that this evening he is at home and began feeling his heart pounding in his chest, became short of breath and was having significant chest pain, presented to the emergency department for evaluation, initially patient's heart rate was found to be in the 140s and patient was hypertensive, EKG appears to have been atrial flutter. patient was given 3 rounds of Lopressor 5 mg IV and eventually converted back to normal sinus rhythm with a rate of around 75-80, pain improved at this time as well. Labs in the emergency department significant for mildly elevated troponin 0.06 glucose [address] PE protocol negative for any acute findings. ED provider wishes to admit under observation Allergies No Known Allergies Allergy (Verified 12/14/20 23:22) Home Medications: Atorvastatin Calcium 40 mg PO DAILY 12/14/20 Glipizide [Glipizide ER] 10 mg PO DAILY 12/14/20 Levothyroxine [Synthroid*] 75 mcg PO [id number] 12/14/20 Lisinopril [Zestril] 10 mg PO DAILY 12/14/20 Verapamil HCl [Verapamil Sr] 180 mg PO DAILY 12/14/20 Nitroglycerin [Nitrostat*] 0.4 mg SL UD PRN tab 12/17/20 - Past Medical/Surgical History Diabetic: Yes -: diabetes- NIDDM -: HTN -: high cholesterol -: hypothyroidism -: CAD s/p CABG -: Atrial fibrillation on chronic anticoagulation -: eye surgery -: CABG Psychosocial/ Personal History: Patient is currently unemployed, lives with family - Family History Family History: Reviewed- Non-Contributory - Social History Smoking Status: Never smoker Alcohol use: No CD- Drugs: No Caffeine use: Yes Place of Residence: Home Review of Systems 10-point ROS is otherwise unremarkable Respiratory: Shortness of Breath, As per HPI Cardiovascular: Chest Pain, Palpitations, Light Headedness, As per HPI Physical Examination - Physical Exam General: Alert, In no apparent distress HEENT: Atraumatic, PERRLA, Mucous membr. moist/pink Neck: Supple, 2+ carotid pulse no bruit, No LAD Respiratory: Clear to auscultation bilaterally, Normal air movement Cardiovascular: Regular rate/rhythm, Normal S1 S2 Gastrointestinal: Normal bowel sounds, No tenderness Musculoskeletal: No tenderness Integumentary: No rashes Neurological: Normal speech, Normal strength at 5/5 x4 extr, Normal tone, Normal affect - Studies Laboratory Data (last 24 hrs) 01/05/21 23:45: PT 12.1, INR 1.05 01/05/21 23:45: WBC 11.10 H, Hgb 12.2 L, Hct 38.4 L, Plt Count 489 H 01/05/21 23:45: Sodium 139, Potassium 3.8, BUN 15, Creatinine 0.87, Glucose 212 H, Magnesium 2.1, Total Bilirubin 0.4, AST 17, ALT 38, Alkaline Phosphatase 138 H Assessment and Plan - Plan Assessment Chest pain, dyspnea secondary to atrial flutter with a rate of approximately 140s with history of atrial fibrillation on chronic anticoagulation therapy-res olved now in normal sinus rhythm CAD status post recent CABG Diabetes mellitus type 2 Hypertension, hyperlipidemia, hypothyroidism Plan Chest pain, dyspnea secondary to atrial flutter with a rate of approximately 140s with history of atrial fibrillation on chronic anticoagulation therapy- resolved now in normal sinus rhythm: Initial troponin mildly elevated, will trend. Monitor on telemetry. Continue patient's metoprolol succinate 100 mg daily, Eliquis, aspirin. Cardiology consulted in case of need for adjustment in medications. Patient comfortable at this time without any pain now that he is converted to sinus rhythm. Patient reports he is started on Eliquis after leaving the hospital from his CABG reporting that he thought they told him he may have had atrial fibrillation during his stay there. Continue Eliquis for DVT prophylaxis. Electrolytes and thyroid function normal. CAD status post recent CABG: Continue home medications, appears stable at this time. Diabetes mellitus type 2: A.c. HS Accu-Cheks, sliding scale insulin therapy. Continue home meds. Hypertension, hyperlipidemia, hypothyroidism: Stable, continue home meds. Discharge Plan: Home Plan to discharge in: 24 Hours - Advance Directives Does patient have a Living Will: No Does patient have a Durable POA for Healthcare: Yes - Code Status/Comfort Care Code Status Assessed: Yes (Full code) Critical Care: No Time Spent Managing Pts Care (In Minutes): 55
[2021-01-06 03:42] VITALS: O2SAT 97
[2021-01-06 03:43] VITALS: BMI 28.0
[2021-01-06 05:52] LABS: BUN Blood Urea Nitrogen 12 mg/dL (7-18); Bicarbonate 26 mmol/L (21-32); Glucose Level 165 mg/dL (74-106); Sodium Level 140 mmol/L (136-145)
[2021-01-06 05:54] LABS: Troponin I 2.33 ng/mL (0.0-0.045)
[2021-01-06] MEDS ORDERED: TRAMADOL HCL 50 MG TAB PO SCH (06:00)
[2021-01-06] MEDS ORDERED: METOPROLOL XL 100 MG TAB PO SCH (06:00)
[2021-01-06] MEDS ORDERED: LEVOTHYROXINE SOD 0.075 MG TAB PO SCH (06:30)
--- NOTE | 2021-01-06 07:22 | EKG ---
Test Date: 2021-01-05 Test Time: 23:37:39 Game Preserve Manager: NABIL MEASUREMENT RESULTS: Intervals: Rate: 139 CT: 154 QRSD: 90 QT: 248 QTc: 377 Preston: P: CT: 154 QRS: 20 T: 210 INTERPRETIVE STATEMENTS: Sinus tachycardia Nonspecific ST and T wave abnormality Abnormal ECG Compared to ECG 12/15/2020 09:43:11 ST (T wave) deviation now present Sinus rhythm no longer present Electronically Signed On 01-06-21 07:21:49 CDT by Benigno Perera
[2021-01-06] MEDS ORDERED: INSULIN -REGULAR HUMAN 50 UNIT/0.5 ML ML SQ SCH (07:30)
[2021-01-06] MEDS ORDERED: GLIPIZIDE S.A. 5 MG TAB PO SCH ×2 (08:00→09:00)
--- NOTE | 2021-01-06 08:38 | P.DS ---
Admission Date: 01/06/21 Discharge Date: 01/06/21 Primary Care Provider: Dr. Sorenson; Cardiology-Dr. Perera Disposition: ROUTINE DISCHARGE Discharge Condition: GOOD Reason for Admission: Atrial flutter, chest pain Consultations: Cardiology-Dr. Perera Procedures: COVID: Negative CT scan chest: Unremarkable MedicaUnremarkablel Problem List: Chest pain, dyspnea, elevated troponin, secondary to atrial flutter with a rate of approximately 140s with history of atrial fibrillation on chronic anticoagulation therapy-resolved after treatment now in normal sinus rhythm CAD status post recent CABG x2 vessels Diabetes mellitus type 2 Hypertension Hyperlipidemia Hypothyroidism Diabetic neuropathy Brief History of Present Illness: 60-year-old male with history of CAD status post recent CABG, hypertension, hyperlipidemia, diabetes mellitus type 2, hypothyroidism, atrial fibrillation on chronic anticoagulation therapy presents emergency department for palpitations and chest pain. Patient reports that this evening he is at home and began feeling his heart pounding in his chest, became short of breath and was having significant chest pain, presented to the emergency department for evaluation, initially patient's heart rate was found to be in the 140s and patient was hypertensive, EKG appears to have been atrial flutter. patient was given 3 rounds of Lopressor 5 mg IV and eventually converted back to normal sinus rhythm with a rate of around 75-80, pain improved at this time as well. Labs in the emergency department significant for mildly elevated troponin 0.06 glucose [address] PE protocol negative for any acute findings. Patient was admitted for further evaluation. Hospital Course: Patient with history of CAD and recent CABG x2 vessels, hypertension, hyperlipidemia, hypothyroidism and atrial fibrillation on chronic anticoagulation therapy. Patient presented with chest pain and palpitation. Patient was found to have heart rate in the 140s likely atrial flutter. Patient was given 3 rounds of IV Lopressor which helped to convert him back to normal rhythm. The patient was monitored overnight. Patient without chest pain or shortness of breath. Patient was seen and evaluated by cardiology. Troponin was at 0.06 and increased to 2.3 which was expected due to his atrial flutter. Cardiology recommended no further cardiac intervention at this time. No need to recheck troponin. Patient without chest pain or shortness of breath at discharge. Patient remains in normal sinus rhythm. At discharge cardiology plans to increase metoprolol XL to 100 mg 1 pill twice daily. Patient will continue with his other medication including Eliquis 5 mg 1 pill twice daily, aspirin 81 mg daily, and Lipitor 40 mg daily. Patient will follow up with cardiology in 1 to 2 weeks to follow-up his hospitalization. Education on atrial fibrillation and chronic anticoagulation therapy provided. Patient with diabetes mellitus type 2. Blood sugars controlled. At discharge recommend to monitor blood sugars at least twice daily. Recommend to maintain blood sugars less than 140 fasting and less than 200 after meals. At discharge patient will continue with his medication of glipizide 10 mg daily. If blood sugars remain above 200 consistently he is to contact his PCP for further recommendation. Recommend to at least check hemoglobin A1c every 3 months to monitor his progress. Patient with hyperlipidemia. At discharge patient will continue with Lipitor 40 mg daily. Recommend to recheck fasting lipid panel in 4 to 6 weeks to monitor his progress. Further adjustment can be done by his PCP or cardiology. Patient with hypothyroidism. TSH within normal range. At discharge patient will continue with levothyroxine 75 mcg daily. Patient with diabetic neuropathy. At discharge patient will continue with gabapentin 100 mg 3 times a day. Patient also takes tramadol 50 mg 3 times a day as needed for pain. Vital Signs/Physical Exam: Temp Pulse Resp BP Pulse Ox 97.3 F 67 20 118/69 99 01/06/21 04:00 01/06/21 05:51 01/06/21 06:53 01/06/21 05:51 01/06/21 06:53 General: Alert, In no apparent distress, Oriented x3, Cooperative HEENT: Atraumatic Neck: Supple Respiratory: Clear to auscultation bilaterally, Normal air movement Cardiovascular: Normal pulses, Regular rate/rhythm Gastrointestinal: Normal bowel sounds, No tenderness, No masses, No rebound, No guarding Musculoskeletal: No erythema, No tenderness, No warmth Integumentary: No tenderness/swelling Neurological: Normal speech, Normal strength at 5/5 x4 extr, Normal tone, Normal affect Laboratory Data at Discharge: WBC 11.10 K/uL (4.3-10.9) H 01/05/21 23:45 Hgb 12.2 g/dL (13.6-17.9) L 01/05/21 23:45 Hct 38.4 % (39.6-49.0) L 01/05/21 23:45 Plt Count 489 K/uL (152-406) H 01/05/21 23:45 PT 12.1 SECONDS (9.5-12.5) 01/05/21 23:45 INR 1.05 01/05/21 23:45 Sodium 140 mmol/L (136-145) 01/06/21 05:03 Potassium 4.0 mmol/L (3.5-5.1) 01/06/21 05:03 BUN 12 mg/dL (7-18) 01/06/21 05:03 Creatinine 0.66 mg/dL (0.55-1.3) 01/06/21 05:03 Glucose 165 mg/dL (74-106) H 01/06/21 05:03 Magnesium 2.0 mg/dL (1.8-2.4) 01/06/21 05:03 Total Bilirubin 0.4 mg/dL (0.2-1.0) 01/05/21 23:45 AST 17 U/L (15-37) 01/05/21 23:45 ALT 38 U/L (12-78) 01/05/21 23:45 Alkaline Phosphatase 138 U/L (45-117) H 01/05/21 23:45 Troponin I 2.33 ng/mL (0.0-0.045) H* 01/06/21 05:03 Home Medications: Atorvastatin Calcium 40 mg PO DAILY 12/14/20 Glipizide [Glipizide ER] 10 mg PO DAILY 12/14/20 Levothyroxine [Synthroid*] 75 mcg PO [id number] 12/14/20 Apixaban [Eliquis] 5 mg PO BID 01/06/21 Aspirin [Aspirin EC] 81 mg PO DAILY 01/06/21 Gabapentin 100 mg PO TID 01/06/21 Metoprolol Succinate [Toprol Xl*] 100 mg PO BID #60 tab 01/06/21 Tramadol HCl [Ultram] 50 mg PO Q6HR PRN 01/06/21 New Medications: Metoprolol Succinate [Toprol Xl*] 100 mg PO BID #60 tab Physician Discharge Instructions: Patient with history of CAD and recent CABG x2 vessels, hypertension, hyperlipidemia, hypothyroidism and atrial fibrillation on chronic anticoagulation therapy. Patient presented with chest pain and palpitation. Patient was found to have heart rate in the 140s likely atrial flutter. Patient was given 3 rounds of IV Lopressor which helped to convert him back to normal rhythm. The patient was monitored overnight. Patient without chest pain or shortness of breath. Patient was seen and evaluated by cardiology. Troponin was at 0.06 and increased to 2.3 which was expected due to his atrial flutter. Cardiology recommended no further cardiac intervention at this time. No need to recheck troponin. Patient without chest pain or shortness of breath at discharge. Patient remains in normal sinus rhythm. At discharge cardiology plans to increase metoprolol XL to 100 mg 1 pill twice daily. Patient will continue with his other medication including Eliquis 5 mg 1 pill twice daily, aspirin 81 mg daily, and Lipitor 40 mg daily. Patient will follow up with cardiology in 1 to 2 weeks to follow-up his hospitalization. Education on atrial fibrillation and chronic anticoagulation therapy provided. Patient with diabetes mellitus type 2. Blood sugars controlled. At discharge recommend to monitor blood sugars at least twice daily. Recommend to maintain blood sugars less than 140 fasting and less than 200 after meals. At discharge patient will continue with his medication of glipizide 10 mg daily. If blood sugars remain above 200 consistently he is to contact his PCP for further r ecommendation. Recommend to at least check hemoglobin A1c every 3 months to monitor his progress. Patient with hyperlipidemia. At discharge patient will continue with Lipitor 40 mg daily. Recommend to recheck fasting lipid panel in 4 to 6 weeks to monitor his progress. Further adjustment can be done by his PCP or cardiology. Patient with hypothyroidism. TSH within normal range. At discharge patient will continue with levothyroxine 75 mcg daily. Patient with diabetic neuropathy. At discharge patient will continue with gabapentin 100 mg 3 times a day. Patient also takes tramadol 50 mg 3 times a day as needed for pain. Diet: ADA Activity: Ad val Followup: LOBITO ROBIN [Primary Care Provider] - Time spent managing pt's care (in minutes): 55
[2021-01-06 08:48] LABS: Urine Appearance CLEAR (Clear); Urine Bilirubin NEGATIVE (Negative); Urine Blood NEGATIVE (Negative); Urine Color YELLOW (Yellow); Urine Glucose NEGATIVE (Negative); Urine Protein NEGATIVE (Negative); Urine Urobilinogen 0.2 mg/dL (0.2-1.0); Urine pH 5.5 (5.0-7.0)
[2021-01-06 08:53] VITALS: BP 128/72; TEMP 97
[2021-01-06] MEDS ORDERED: FUROSEMIDE 20 MG TABLET PO SCH (09:00)
[2021-01-06] MEDS ORDERED: APIXABAN 5 MG TABLET PO SCH (09:00)
[2021-01-06] MEDS ORDERED: GABAPENTIN 100 MG CAP PO SCH (09:00)
[2021-01-06] MEDS ORDERED: ASPIRIN EC 81 MG TAB PO SCH (09:00)
[2021-01-06 09:06] LABS: Urine Microscopic Reflex NO UMIC
--- NOTE | 2021-01-06 10:37 | RAD REPORT ---
EXAM DESCRIPTION: RAD - Chest Single View - 01/06/2021 12:13 am CLINICAL HISTORY: Palpitations;Chest paindouble bypass approximately 2 weeks earlier COMPARISON: Portable December 14 TECHNIQUE: AP portable chest image was obtained 01/06/2021 12:13 am . FINDINGS: CABG surgical changes are now evident compared with December 14 imaging. Lung volumes are low. Interstitial markings and central vasculature are fractionally increased. Cardiac silhouette is enla rged compared to prior study, partly due to the lower lung volume. No measurable pleural effusion and no pneumothorax. No acute bony abnormality seen. No acute aortic findings suspected. IMPRESSION: Chest findings suggest mild failure or volume overload. Findings are accentuated somewha t by a lower lung volume. CABG surgical changes since December 14 imaging.
[2021-01-06] MEDS ORDERED: ATORVASTATIN 40 MG TAB PO SCH (21:00)
--- NOTE | 2021-01-06 21:02 | RAD REPORT ---
EXAM DESCRIPTION: CT - Chest For Pe Angio - 01/06/2021 6:59 am CLINICAL HISTORY: 60 years, Male, Chest pain;SOB COMPARISON: None. TECHNIQUE: Multiple transaxial tomograms of the chest were obtained from the lung apices through the lung bases utilizing 2 mm slice thickness at 2 mm interval reconstruction after the administration o f 100 cc of Omnipaque 350 at a rate of 4.0 cc per second for complete opacification of the pulmonary arteries. Subsequent maximum intensity projection images were generated in the coronal and sagittal plane for r eview. An individualized dose optimization technique, Automated Exposure Control, was utilized for the perfo rmed procedure. FINDINGS: Study is compromised due to motion artifact limiting diagnostic value. Otherwise the lungs parenchyma demonstrate to be clear, no masses, nodules and/or consolidations are identified. Minimal dependent atelectatic changes posterior CP angles. The trachea mainstem bronchu s demonstrate to be normal. There are no pleural effusions. The thoracic aorta demonstrate minimal atheromatous plaque formation. There is no evidence for thorac ic aortic dissection. The heart is prominent. There is a pericardial effusion with the greatest width posteriorly measuring 15 mm on image 91. There are coronary artery calcification. There is a status post CABG. There is no significant mediastinal and/or hilar lymphadenopathy. The axillary regions demonstrate to be clear. Pulmonary arteries demonstrate to be normal, no intraluminal defect are seen that would suggest pulmo nary embolus. The bone windows demonstrate no significant skeletal lesions. The visualized portions of the upper abdomen demonstrate to be unremarkable. IMPRESSION: No CT evidence for pulmonary embolism an/or thoracic aortic dissection. Cardiomegaly with a small posterior pericardial effusion. Status post CABG Coronary artery calcification. Electronically signed by: Chase Neves MD 01/06/2021 1:34 AM CDT Due to temporary technical issues with the PACS/Fluency reporting system, reports are being signed by the in house radiologists without review as a courtesy to insure prompt reporting. The interpreting radiologist is fully responsible for the content of the report.
--- NOTE | 2021-01-09 14:11 | CON ---
Date of Consultation: 01/06/2021 Reason For Consultation: Atrial fibrillation History Of Present Illness: white male. The patient underwent diabetes, hyper tension, atrial fibrillation metoprolol 100 mg a day as well as Eliquis. He co mes back with another . Past Medical History: As above. Allergies: Medications: At home include metoprolol , Synthroid, Ativan, , Neurontin, and gl ipizide. Physical Examination: Vital signs: Stable, in sinus rhythm. No complaint. HEENT: Negative. Neck: Supple. No bruit. Chest: Clear. Cardiac: Atrial fibrillation. Abdomen: Benign. Extremities: Revealed no clubbing, cyanosis, or edema. Diagnostic Data: As stated earlier. Impression And Plan: atrial fibrillation status post . He has a followup in my office in the next 2 weeks. MICHELET Voice ID: [id number] Report ID: [id number]
== END 2021-01-06 10:20 | disposition home or self-care (01) ==
LOC: ER 23:22 → ERHOLD 01-06 02:39 → 2ND 01-06 03:10
PROVIDERS: ADMIT Family Medicine; ATTEND Family Medicine
DX: I48.92 Unspecified atrial flutter (principal); I48.91 Unspecified atrial fibrillation; I25.10 Atherosclerotic heart disease of native coronary artery without angina pectoris; I10 Essential (primary) hypertension; E78.5 Hyperlipidemia, unspecified; E11.40 Type 2 diabetes mellitus with diabetic neuropathy, unspecified; E03.9 Hypothyroidism, unspecified; E78.00 Pure hypercholesterolemia, unspecified; Z95.1 Presence of aortocoronary bypass graft; Z79.01 Long term (current) use of anticoagulants; Z20.822 Contact with and (suspected) exposure to COVID-19
CPT/HCPCS: 93005; 85025; 80048 ×2; 36415; 83735 ×2; 85610; 82947 ×2; 80076; 84443; 81003; 84484 ×2; 83880; 71275; 71045; U0003; Q9967; J2270; 96374; 96375; 99285; G0378